=== PATIENT | male | born 1950 | race Caucasian/White ===

== ENCOUNTER 2016-10-09 04:05 | Inpatient (IN) | payer BC ==
[2016-10-09 04:51] LABS: ABSOLUTE BASOPHILS # (AUTO) 0.1 10^3/uL (0.0-0.2); ABSOLUTE EOSINOPHILS # (AUTO) 0.1 10^3/uL (0.0-0.6); ABSOLUTE LYMPHOCYTES (AUTO) 2.4 10^3/uL (0.5-4.7); ABSOLUTE MONOCYTES (AUTO) 0.8 10^3/uL (0.1-1.4); BASOPHILS % (AUTO) 0.6 % (0-2); EOSINOPHILS % (AUTO) 1.5 % (0-6); HEMATOCRIT 46.8 % (37.9-51.0); HEMOGLOBIN 15.6 g/dL (13.5-17.0); LYMPHOCYTES % (AUTO) 28.5 % (13-45); MEAN CORPUSCULAR HEMOGLOBIN 31.9 pg (27.0-33.4); MEAN CORPUSCULAR HGB CONC 33.3 g/dL (32.0-36.0); MEAN CORPUSCULAR VOLUME 96 fl (80-97); MONOCYTES % (AUTO) 9.7 % (3-13); RED BLOOD COUNT 4.88 10^6/uL (4.35-5.55); RED CELL DISTRIBUTION WIDTH 13.1 % (11.5-14.0); SEGMENTED NEUTROPHILS % (AUTO) 59.7 % (42-78); WHITE BLOOD COUNT 8.4 10^3/uL (4.0-10.5)
--- NOTE | 2016-10-09 04:56 | ER Document Report ---
ED General - General Chief Complaint: S/S of Possible Stroke Stated Complaint: STROKE LIKE SYMPTOMS Notes: Patient is a 66-year-old male presents with complaint of strokelike symptoms. He first started having stroke like symptoms congestion during the day. He felt a little bit weak on his right side but it was not bad. He went to bed around 10 PM. He woke up around 3:45 with worsening right-sided weakness and some slurred speech. He came to ER. No previous history of stroke. No history of A. fib. He denies any headache or chest pain. No shortness of breath. No other complaints at this time. No new medications. No recent fevers or infections. TRAVEL OUTSIDE OF THE [place] IN LAST 30 DAYS: No - Related Data Allergies/Adverse Reactions: No Known Allergies Allergy (Verified 10/01/15 16:59) Past Medical History - Social History Smoking Status: Never Smoker Chew tobacco use (# tins/day): No Frequency of alcohol use: Occasional Drug Abuse: None Family History: Reviewed & Not Pertinent Patient has suicidal ideation: No Patient has homicidal ideation: No - Past Medical History Cardiac Medical History: Reports: Hx Atrial Fibrillation - INTERMITTENT, Hx Hypertension Endocrine Medical History: Reports: Hx Diabetes Mellitus Type 2 Renal/ Medical History: Denies: Hx Peritoneal Dialysis Past Surgical History: Reports: Hx Orthopedic Surgery - back, R rotator cuff - Immunizations Hx Diphtheria, Pertussis, Tetanus Vaccination: No Review of Systems - Review of Systems Notes: My Normal Review Basic REVIEW OF SYSTEMS: CONSTITUTIONAL : Denies fever, chills, or sweats. Denies recent illness. EENT: Denies eye, ear, throat, or mouth pain or symptoms. Denies nasal or sinus congestion. CARDIOVASCULAR: Denies chest pain. RESPIRATORY: Denies cough, cold, or chest congestion. Denies shortness of breath, difficulty breathing, or wheezing. GASTROINTESTINAL: Denies abdominal pain. Denies nausea, vomiting, or diarrhea. Denies constipation. Last BM: MUSCULOSKELETAL: Denies neck or back pain or joint pain or swelling. SKIN: Denies rash or skin lesions. HEMATOLOGIC : Denies easy bruising or bleeding. NEUROLOGICAL: Denies altered mental status or loss of consciousness. Denies headache. Right-sided weakness. Slurred speech. PSYCHIATRIC: Denies anxiety or stress or depression. ALL OTHER SYSTEMS REVIEWED AND NEGATIVE. Physical Exam - Vital signs Vitals: Temp Pulse Resp BP Pulse Ox 98 F 58 L 18 154/98 H 96 10/09/16 04:15 10/09/16 04:15 10/09/16 04:15 10/09/16 04:15 10/09/16 04:15 - Notes Notes: General Appearance: Well nourished, alert, cooperative, no acute distress, no obvious discomfort. Well-appearing Vitals: reviewed, See vital signs table. Head: no swelling or tenderness to the head Eyes: PERRL, EOMI, Conjuctiva clear Mouth: No decreasd moisture Neck: Supple, no neck tenderness, No thyromegaly Lungs: No wheezing, No rales, No rhonci, No accessory muscle use, good air exchange bilaterally. Heart: Irregular rate, Regular rythm, No murmur, no rub Abdomen: Normal BS, soft, No rigidity, No abdominal tenderness, No guarding, no rebound, no abdominal masses, no organomegaly Extremities: good pulses in all extremities, no swelling or tenderness in the extremities, no edema. Skin: warm, dry, appropriate color, no rash Neuro: Slurred clear, oriented x 3, normal affect, responds appropriately to questions. Patient is able move all 4 extremities without difficulty. Slight drift of right upper extremity when holding his gravity. Left upper extremity has normal strength. Good material distributor strength bilaterally. Slight drift when holding his right lower extremity up against gravity. Normal strength and left lower extremity. Good strength of bilateral lower extremities. Plantar and dorsiflexion. Good distal sensation. Course - Vital Signs Vital signs: Temp Pulse Resp BP Pulse Ox 98 F 89 16 154/101 H 93 10/09/16 04:15 10/09/16 04:33 10/09/16 06:45 10/09/16 06:31 10/09/16 06:45 - Laboratory Result Diagrams: 10/09/16 04:41 10/09/16 04:41 Laboratory results interpreted by me: 10/09/16 10/09/16 10/09/16 04:41 04:51 05:25 Glucose 286 H POC Glucose 272 H Urine Protein 100 H Urine Glucose (UA) >=500 H Urine Blood SMALL H - Transfer of Care Notes: 10/09/16 04:55 EKG is reviewed and interpreted by me. EKG shows A. fib with a rate of [address] segment elevation or depression. No ischemic T wave inversions. QRS duration QTC intervals are within normal range. No old EKG available for comparison. 10/09/16 07:39 Patient has had no progression of his neurologic deficits. They remain the same. He still has mild weakness in the right side with some slurred speech. Due to new onset atrial relation to date the patient dose of Lovenox. I did speak with Dr. Whatley, hospitalist, who agrees to admit the patient. Dictation of this chart was performed using voice recognition software; therefore, there may be some unintended grammatical errors. Discharge - Discharge Clinical Impression: Stroke Qualifiers: CVA mechanism: unspecified Qualified Code(s): I63.9 - Cerebral infarction, unspecified Atrial fibrillation Qualifiers: Atrial fibrillation type: persistent Qualified Code(s): I48.1 - Persistent atrial fibrillation Condition: Stable Disposition: ADMITTED OBSERVATION Admitting Provider: Hospitalist Unit Admitted: IMCU Referrals: CARLOTA GUPTA MD [Primary Care Provider] - Follow up as needed
[2016-10-09 05:04] LABS: PROTHROMBIN TIME 12.7 SEC (11.4-15.4)
[2016-10-09 05:05] LABS: PARTIAL THROMBOPLASTIN TIME 28.2 SEC (23.5-35.8)
[2016-10-09 05:17] LABS: ALANINE AMINOTRANSFERASE 39 U/L (21-72); ALKALINE PHOSPHATASE 49 U/L (38-126); ANION GAP 9 (5-19); ASPARTATE AMINO TRANSFERASE 26 U/L (17-59); BILIRUBIN,TOTAL 0.8 mg/dL (0.2-1.3); BLOOD UREA NITROGEN 19 mg/dL (7-20); CALCIUM 10.2 mg/dL (8.4-10.2); CARBON DIOXIDE 26 mmol/L (22-30); CHLORIDE 104 mmol/L (98-107); CREATININE RESULT 0.76 mg/dL (0.52-1.25); GLUCOSE 286 mg/dL (75-110); POTASSIUM 4.8 mmol/L (3.6-5.0); SODIUM 139.2 mmol/L (137-145); TOTAL PROTEIN 7.6 g/dL (6.3-8.2)
[2016-10-09 05:44] LABS: APPEARANCE,URINE CLEAR; BILIRUBIN,URINE NEGATIVE (NEGATIVE); GLUCOSE, URINE >=500 mg/dL (NEGATIVE); KETONES,URINE NEGATIVE (NEGATIVE); LEUKOCYTE ESTERASE,URINE NEGATIVE (NEGATIVE); NITRITE,URINE NEGATIVE (NEGATIVE); PROTEIN,URINE 100 mg/dL (NEGATIVE); URINE SPECIFIC GRAVITY 1.022; UROBILINOGEN,URINE NEGATIVE mg/dL (<2.0)
[2016-10-09] MEDS ORDERED: ENOXAPARIN SODIUM INJ 120 MG/0.8 ML DISP.SYRIN SUBCUT SCH ×2 (06:00)
[2016-10-09] MEDS ORDERED: INSULIN REG, HUMAN 100 UNIT/ML 3 ML VIAL (PYX) SUBCUT ONE (07:41)
[2016-10-09] MEDS ORDERED: HYDROCODONE/ACETAMINOPHEN 5-325 MG TABLET PO PRN (09:03)
[2016-10-09] MEDS ORDERED: DEXTROSE 40% GEL 15 GM TUBE PO PRN ×2 (09:03)
[2016-10-09] MEDS ORDERED: ONDANSETRON HCL INJ/PF 4 MG/2 ML SDV IV PRN (09:03)
[2016-10-09] MEDS ORDERED: DEXTROSE 50%-WATER 25 GM/50 ML DISP.SYRIN IV PRN ×2 (09:03)
[2016-10-09] MEDS ORDERED: GLUCAGON,HUMAN RECOMB 1 MG INJ IM PRN (09:03)
[2016-10-09] MEDS ORDERED: ACETAMINOPHEN 325 MG TABLET PO PRN (09:03)
[2016-10-09] MEDS ORDERED: MAGNESIUM HYDROXIDE SUSP 30 ML UDCUP PO PRN (09:09)
[2016-10-09] MEDS: ENOXAPARIN SODIUM INJ 100 MG/1 ML DISP.SYRIN SUBCUT SCH ×2 (10:07→22:05)
[2016-10-09] MEDS: INSULIN LISPRO 100 UNIT/ML 3 ML VIAL SUBCUT PRN ×2 (10:25→22:06)
--- NOTE | 2016-10-09 10:51 | EKG REPORT ---
SEVERITY:- ABNORMAL ECG - A-FLUTTER W/ PREDOM 3:1 AV BLOCK, A-RATE 283 : Confirmed by: Constantine Lee 09-Oct-2016 10:50:08
--- NOTE | 2016-10-09 16:26 | PDOC H&P ---
History of Present Illness Admission Date/PCP: 10/09/16 09:03 CARLOTA GUPTA, Patient complains of: Right-sided weakness History of Present Illness: VISH NUÑEZ JR is a 66 year old male patient of Dr. Gupta presented to the emergency room from home with gradual onset of right-sided weakness and slurred speech that started yesterday afternoon with weakness in his right arm that he thought was just from overuse. He denied paresthesias at that time. It never did quite go away but he decided to go to bed at around 2200 hrs. but awoke at 03 45 with worsening right arm and leg weakness and now slurred speech prompting the decision to come in to the ER for further evaluation. Since his symptoms have been persistent since yesterday afternoon he is well outside the window for thrombolytics. He states he's never had anything quite like this before but he's had vertigo for over a year. In fact he was evaluated here and had carotid Dopplers in December 2015 that showed no plaque, no stenosis and good antegrade flow in vertebral arteries. He does take an aspirin every day. He has a known history of atrial fibrillation since 1994 he states for which he is on rate controlling medicine and a daily aspirin. He does not take anticoagulation and an claims he's never had a GI bleed or abnormal blood loss. He is not routinely followed by cardiology. Evaluation in the emergency department shows persistent right sided symptoms consistent with an acute CVA. We were asked to admit the patient for further evaluation and management. Past Medical History Cardiac Medical History: Reports: Atrial Fibrillation - INTERMITTENT, Hypertension Denies: Heart Murmur Endocrine Medical History: Reports: Diabetes Mellitus Type 2 Past Surgical History Past Surgical History: Reports: Orthopedic Surgery - back, R rotator cuff Social History Information Source: Patient Smoking Status: Never Smoker Frequency of Alcohol Use: None Hx Recreational Drug Use: No Hx Prescription Drug Abuse: No - Advance Directive Resuscitation Status: Full Code Family History Family History: Reviewed & Not Pertinent. denies: CVA Parental Family History Reviewed: Yes Children Family History Reviewed: Yes Sibling(s) Family History Reviewed.: Yes Medication/Allergy Home Medications: Aspirin [Ecotrin] 325 mg PO DAILY 10/09/16 Benazepril HCl [Lotensin 20 mg Tablet] 20 mg PO DAILY 10/09/16 Digoxin [Lanoxin 0.25 mg Tablet] 250 mcg PO Q12 10/09/16 Glimepiride [Amaryl 4 mg Tablet] 8 mg PO DAILY 10/09/16 Insulin Glargine,Hum.rec.anlog [Jarretchaigermaine Malikfreeman] 60 unit SQ QHS 10/09/16 Metformin HCl [Glucophage] 1,000 mg PO Q12 10/09/16 Simvastatin [Zocor 40 mg Tablet] 40 mg PO QHS 10/09/16 Allergies/Adverse Reactions: No Known Allergies Allergy (Verified 10/01/15 16:59) Review of Systems Constitutional: ABSENT: chills, fever(s), headache(s), weight gain, weight loss Eyes: ABSENT: visual disturbances Ears: ABSENT: hearing changes Cardiovascular: ABSENT: chest pain, dyspnea on exertion, edema, orthropnea, palpitations Respiratory: ABSENT: cough, hemoptysis Gastrointestinal: ABSENT: abdominal pain, constipation, diarrhea, hematemesis, hematochezia, nausea, vomiting Genitourinary: ABSENT: dysuria, hematuria Musculoskeletal: ABSENT: joint swelling Integumentary: ABSENT: rash, wounds Neurological: PRESENT: abnormal speech, focal weakness. ABSENT: abnormal gait, confusion, dizziness, numbness, syncope, tingling Psychiatric: ABSENT: anxiety, depression Endocrine: ABSENT: cold intolerance, heat intolerance, polydipsia, polyuria Hematologic/Lymphatic: ABSENT: easy bleeding, easy bruising Physical Exam Vital Signs: Temp Pulse Resp BP Pulse Ox 98.1 F 96 15 154/96 H 97 10/09/16 15:02 10/09/16 15:00 10/09/16 15:02 10/09/16 15:02 10/09/16 15:02 PHYSICAL EXAM GENERAL: NAD; well developed, well nourished; mild obese; alert and oriented to person, place, time, situation and speech is slurred HEENT: normocephalic, atraumatic; EOMI, PERRLA, no conjunctival injection, no scleral icterus; oral mucosa moist, neck supple, no LAD, normal ROM RESPIRATORY: no accessory muscle use, no increased WOB, good air entry bilaterally; no wheezes, rales, rhonchi; no inspiratory crackles CARDIO: no JVD; irregularly irregular, A. fib on the monitor; no systolic murmur ; no tachycardia VASCULAR: no carotid bruit; no abdominal bruit; no pallor; 2+ radial, DP pulse ; normal capillary refill GI: soft; nondistended; normal bowel sounds; no hepato spleno megaly; no rebound, rigidity, guarding; nontender NEURO: normal patella reflexes; abnormal sensation right leg; abnormal motor function with right pronator drift; no nystagmus; tongue protrudes to the right ; abnormal finger to nose right hand; able to cross midline with finger to ear; right eye ptosis; blunted right nasal labial fold MSK: 5/5 strength; normal ROM hips; no tenderness EXTREMITIES: no calf tender; no palpable cords in calf; no clubbing, cyanosis , pedal edema PSYCH: normal affect, normal mood SKIN: warm; moist; no petechiae; no telengectasias; no jaundice; no rash Results Laboratory Results: 10/09/16 10/09/16 09:56 11:35 Troponin I Cancelled < 0.012 Labs reviewed and essentially normal aside from some hyperglycemia but good renal function, no anemia, LFTs look good and first troponin is negative EKG Comments: EKG shows atrial fibrillation with a ventricular rate of 97 a corrected QT interval 417 Impressions: Head CT 10/09/16 00:00 IMPRESSION: No acute intracranial hemorrhage or acute territorial infarct. Chronic changes of atrophy and microvascular ischemia. Remote infarct in the left occipital lobe. Head MRI 10/09/16 00:00 IMPRESSION: MINIMAL MICROVASCULAR ISCHEMIC CHANGE. OLD CEREBELLAR INFARCTS. OLD INFARCT IN THE LEFT OCCIPITAL LOBE. NO ACUTE FINDINGS. Chest X-Ray 10/09/16 04:27 IMPRESSION: Mild left basilar atelectasis. Assessment & Plan - Diagnosis (1) Acute CVA (cerebrovascular accident) Is this a current diagnosis for this admission?: YesPlan: He has persistent neurologic symptoms in spite of an MRI that does not show a left MCA lesion as I suspected. It does show old infarct and so clinically he clearly has acute stroke and will be treated as such. Admit to [facility] for careful hemodynamic monitoring and neuro scores. Start PT/OT/S/P. Start high- dose statin therapy. His atrial fibrillation with history of prior stroke, age , diabetes, hypertension all give him a chadsvasc score greater than 2 warranting anticoagulation. I'm worried for embolic stroke and not sure I can get an echocardiogram today giving me further reason to full dose anticoagulation. Check carotid Dopplers looking for stenosis. (2) Diabetes Qualifiers: Diabetes mellitus type: type 2 Diabetes mellitus complication status: with unspecified complications Diabetes mellitus intermediate manager insulin use: with senior care use Qualified Code(s): E11.8 - Type 2 diabetes mellitus with unspecified complications; Z79.4 - USP (current) use of insulin Is this a current diagnosis for this admission?: YesPlan: Continue home dose of Lantus and cover with sliding scale. Check hemoglobin A1c in the morning. (3) Hyperlipidemia Qualifiers: Hyperlipidemia type: unspecified Qualified Code(s): E78.5 - Hyperlipidemia, unspecified Is this a current diagnosis for this admission?: YesPlan: Check lipids in the morning. Start empiric high-dose statin therapy. (4) Atrial fibrillation Qualifiers: Atrial fibrillation type: persistent Qualified Code(s): I48.1 - Persistent atrial fibrillation Is this a current diagnosis for this admission?: YesPlan: Rate control with low-dose beta deep but careful titration to allow permissive hypertension for the first 48 hours.. Lovenox as outlined above. - Time Time Spent: 50 to 70 Minutes - Inpatient Certification Medical Necessity: Significant Comorbidiites Make Outpatient Treatment Too Risky , Need for Neurological Checks, Risk of Complication if Not Cared For in Hospital
[2016-10-09] MEDS ORDERED: DIGOXIN 0.25 MG TABLET PO SCH (17:15)
[2016-10-09] MEDS ORDERED: INSULIN GLARGINE,HUM.REC.ANLOG 1,000 UNIT/10 ML UNIT SUBCUT ONE (22:01)
[2016-10-09] MEDS: METOPROLOL TARTRATE 25 MG TABLET PO SCH (22:03)
[2016-10-09] MEDS: ATORVASTATIN CALCIUM 80 MG TABLET PO SCH (22:05)
[2016-10-09] MEDS: INSULIN GLARGINE,HUM.REC.ANLOG 300 UNIT/3 ML INSULN.PEN SUBCUT SCH (22:16)
[2016-10-10] MEDS: LANSOPRAZOLE 30 MG TAB.RAP.DR PO SCH (05:57)
[2016-10-10 06:20] LABS: HEMATOCRIT 48.1 % (37.9-51.0); HEMOGLOBIN 16.7 g/dL (13.5-17.0); MEAN CORPUSCULAR HEMOGLOBIN 32.8 pg (27.0-33.4); MEAN CORPUSCULAR HGB CONC 34.6 g/dL (32.0-36.0); MEAN CORPUSCULAR VOLUME 95 fl (80-97); RED BLOOD COUNT 5.09 10^6/uL (4.35-5.55); WHITE BLOOD COUNT 8.9 10^3/uL (4.0-10.5)
[2016-10-10 06:44] LABS: ANION GAP 11 (5-19); BLOOD UREA NITROGEN 16 mg/dL (7-20); CALCIUM 10.2 mg/dL (8.4-10.2); CARBON DIOXIDE 25 mmol/L (22-30); CHLORIDE 104 mmol/L (98-107); CREATININE RESULT 0.75 mg/dL (0.52-1.25); Direct HDL 43 mg/dL (>40); GLUCOSE 215 mg/dL (75-110); POTASSIUM 4.2 mmol/L (3.6-5.0); SODIUM 139.8 mmol/L (137-145); TRIGLYCERIDES 308 mg/dL (<150)
[2016-10-10 06:55] LABS: DIRECT LDL 157 mg/dL (<100)
[2016-10-10 07:00] LABS: VLDL CHOLESTEROL 61.6 mg/dL (10-31)
[2016-10-10] MEDS ORDERED: DIGOXIN 0.25 MG TABLET PO SCH (12:00)
[2016-10-10] MEDS: METOPROLOL TARTRATE 25 MG TABLET PO SCH ×2 (12:34→22:39)
[2016-10-10] MEDS: ENOXAPARIN SODIUM INJ 100 MG/1 ML DISP.SYRIN SUBCUT SCH ×2 (12:35→22:38)
--- NOTE | 2016-10-10 12:52 | XCELERA REPORT ---
[address] [address] Transthoracic Echocardiogram Report Name: VISH NUÑEZ JR Age: 66 yrs Gender: Male : 1950 Patient Status: Inpatient Patient Location: [id number]\S\329\S\A Study Date: 10/09/2016 05:18 PM Height: 71 in Weight: 230 lb BSA: 2.2 m2 Procedure: A two-dimensional transthoracic echocardiogram with color flow and Doppler was performed. The study was technically difficult with many images being suboptimal in quality. Images were not obtained from all of the standard acoustic windows due to the limited scope of the study. Reason For Study: afib with CVA not on anticoag;eval for thrombus Ordering Physician: ROSA DUARTE Performed By: Lino Antunez Interpretation Summary There is no obvious cardiac source of embolus noted on this transthoracic echocardiogram. Follow-up with a MECHE is suggested if cardiac source is still suspected. The left ventricle is normal in size. No 'True Apical 2 chamber views ' obtained.Hence cannot comment on the apical and basal Inferior and the apical and basal anterior allen.The mid Inferior,the mid anterior , and the rest of the LV allen probably contract normally , and in these views the LVEF is normal,and in excess of 55%. LV diastolic function could not be adequately assessed due to atrial fibrilation. The left atrium is borderline dilated. There is no evidence of mitral valve prolapse. There is no vegetation seen on the mitral valve. There is no mitral valve stenosis. There is no mitral regurgitation noted. There is no aortic valve stenosis There is no LVOT obstruction. No aortic regurgitation is present. There is no pericardial effusion. There is no obvious cardiac source of embolus noted on this transthoracic echocardiogram. Follow-up with a MECHE is suggested if cardiac source is still suspected MMode/2D Measurements \T\ Calculations RVDd: 2.4 cm LVIDd: 4.7 cm FS: 15.2 % Ao root diam: 3.3 cm IVSd: 1.0 cm LVIDs: 4.0 cm EDV(Teich): 104.3 ml LVPWd: 0.99 cm ESV(Teich): 70.6 ml Ao root area: 8.8 cm2 EF(Teich): 32.3 % LA dimension: 4.1 cm Doppler Measurements \T\ Calculations MV E max joon: MV P1/2t max joon: Ao V2 max: LV V1 max P.1 cm/sec 70.0 cm/sec 109.5 cm/sec 1.9 mmHg MV P1/2t: 49.9 msec Ao max PG: LV V1 max: 4.8 mmHg 68.2 cm/sec MVA(P1/2t): 4.4 cm2 MV dec slope: 410.7 cm/sec2 MV dec time: 0.16 sec PA V2 max: TR max joon: RAP systole: 70.1 cm/sec 216.1 cm/sec 10.0 mmHg PA max PG: TR max P.7 mmHg 2.0 mmHg RVSP(TR): 28.7 mmHg Left Ventricle The left ventricle is normal in size. No 'True Apical 2 chamber views ' obtained.Hence cannot comment on the apical and basal Inferior and the apical and basal anterior allen.The mid Inferior,the mid anterior , and the rest of the LV allen probably contract normally , and in these views the LVEF is normal,and in excess of 55%. LV diastolic function could not be adequately assessed due to atrial fibrilation. There is no thrombus. Right Ventricle The right ventricle is normal in size and function. Atria The right atrium is normal. The left atrium is borderline dilated. Mitral Valve There is no evidence of mitral valve prolapse. There is no vegetation seen on the mitral valve. There is no mitral valve stenosis. There is no mitral regurgitation noted. Aortic Valve There is no aortic valve stenosis. There is no LVOT obstruction. No aortic regurgitation is present. Tricuspid Valve The tricuspid valve is not well visualized secondary to technical limitations. Great Vessels The aortic root is not well visualized but is probably normal size. Effusions There is no pericardial effusion. : ROSA DUARTE > Brittaney Puga
--- NOTE | 2016-10-10 15:02 | PDOC PROGRESS REPORT ---
Subjective Progress Note for:: 10/10/16 Subjective:: REASON FOR VISIT: f/u CVA hospital course: VISH NUÑEZ JR is a 66 year old male patient of Dr. River presented to the emergency room from home with gradual onset of right -sided weakness and slurred speech that started yesterday afternoon with weakness in his right arm that he thought was just from overuse. He denied paresthesias at that time. It never did quite go away but he decided to go to bed at around 2200 hrs. but awoke at 03 45 with worsening right arm and leg weakness and now slurred speech prompting the decision to come in to the ER for further evaluation. Since his symptoms have been persistent since yesterday afternoon he is well outside the window for thrombolytics. He states he's never had anything quite like this before but he's had vertigo for over a year. In fact he was evaluated here and had carotid Dopplers in December 2015 that showed no plaque, no stenosis and good antegrade flow in vertebral arteries. He does take an aspirin every day. He has a known history of atrial fibrillation since 1994 he states for which he is on rate controlling medicine and a daily aspirin. He does not take anticoagulation and an claims he's never had a GI bleed or abnormal blood loss. He is not routinely followed by cardiology. Evaluation in the emergency department shows persistent right sided symptoms consistent with an acute CVA. We were asked to admit the patient for further evaluation and management. Subjective: c/o worsening RT arm weakness, persistent slurred speech and Rt leg weakness with paresthesias, loss of sensation in his mouth (states he cannot tell feel if he has food in the mouth or not at times). denies chest pain, MACDONALD, difficulty swallowing, vision changes, hearing changes ROS: total 10 systems reviewed, pertinent positives and negatives noted above, remaining systems are negative Physical Exam Vital Signs: Temp Pulse Resp BP Pulse Ox 98.3 F 86 18 127/77 H 93 10/10/16 11:59 10/10/16 11:59 10/10/16 11:59 10/10/16 11:59 10/10/16 11:59 Intake & Output 10/09/16 10/10/16 10/11/16 05:59 06:59 06:59 Intake Total 1125 Output Total 500 Balance 625 Weight PHYSICAL EXAM GENERAL: NAD; well developed, well nourished; mild obese; alert and oriented to person, place, time, situation and speech remains slurred HEENT: normocephalic, atraumatic; no conjunctival injection, no scleral icterus; oral mucosa moist, neck supple, no LAD, normal ROM RESPIRATORY: no accessory muscle use, no increased WOB, good air entry bilaterally; no wheezes, rales, rhonchi; no inspiratory crackles CARDIO: no JVD; irregularly irregular, A. fib on the monitor; no systolic murmur ; no tachycardia VASCULAR: no carotid bruit; no abdominal bruit; no pallor; 2+ radial, DP pulse ; normal capillary refill GI: soft; nondistended; normal bowel sounds; no hepato spleno megaly; no rebound, rigidity, guarding; nontender NEURO: normal patella reflexes; abnormal sensation right leg; abnormal motor function with right pronator drift; tongue protrudes to the right; Rt arm flaccid at the shoulder, still minimal revenue stamp cutter strength; right eye ptosis; blunted right nasal labial fold and rt facial droop MSK: 5/5 strength left; normal ROM hips; no tenderness EXTREMITIES: no calf tender; no palpable cords in calf; no clubbing, cyanosis , pedal edema PSYCH: normal affect, normal mood SKIN: warm; moist; no petechiae; no telengectasias; no jaundice; no rash Results Laboratory Results: 10/10/16 05:54 10/10/16 05:54 10/10/16 10/10/16 05:54 05:54 WBC 8.9 RBC 5.09 Hgb 16.7 Hct 48.1 MCV 95 MCH 32.8 MCHC 34.6 RDW 13.0 Plt Count 198 Sodium 139.8 Potassium 4.2 Chloride 104 Carbon Dioxide 25 Anion Gap 11 BUN 16 Creatinine 0.75 Est GFR ( Amer) > 60 Est GFR (Non-Af Amer) > 60 Glucose 215 H Calcium 10.2 Triglycerides 308 H Cholesterol 240.80 H LDL Cholesterol Direct 157 H VLDL Cholesterol 61.6 H HDL Cholesterol 43 10/09/16 10/09/16 09:56 11:35 Troponin I Cancelled < 0.012 labs reviewed and lipids poorly controlled, A1c 11.1% Impressions: Head CT 10/09/16 00:00 IMPRESSION: No acute intracranial hemorrhage or acute territorial infarct. Chronic changes of atrophy and microvascular ischemia. Remote infarct in the left occipital lobe. Head MRI 10/09/16 00:00 IMPRESSION: MINIMAL MICROVASCULAR ISCHEMIC CHANGE. OLD CEREBELLAR INFARCTS. OLD INFARCT IN THE LEFT OCCIPITAL LOBE. NO ACUTE FINDINGS. Chest X-Ray 10/09/16 04:27 IMPRESSION: Mild left basilar atelectasis. Carotid Doppler Study 10/09/16 09:07 IMPRESSION: NO HEMODYNAMICALLY SIGNIFICANT STENOSIS. Head CTA 10/10/16 00:00 IMPRESSION: NO CTA EVIDENCE OF STENOSIS OR ANEURYSM OF THE [place]. Neck CTA 10/10/16 00:00 IMPRESSION: 1. No dissection or high-grade stenosis in the bilateral carotids. Some narrowing in the distal right internal carotid at the skullbase looks less than 50%. Status: Image reviewed by me - MRI brain by my read shows an acute or subacute left pontine CVA, old left cerebellar infarct in addition to the items noted by radiologist Assessment & Plan - Diagnosis (1) Acute CVA (cerebrovascular accident) Is this a current diagnosis for this admission?: YesPlan: continue careful hemodynamic monitoring and PT/OT/S/P. continue high-dose statin therapy. His atrial fibrillation with history of prior stroke, age, diabetes, hypertension all give him a chadsvasc score greater than 2 warranting anticoagulation. I'm worried for embolic stroke but echocardiogram shows no evidence for embolic source and no significant valvular disease. carotid Dopplers negative for stenosis but does show bilat chol plaques. will likely need inpt rehab due to persistent deficits. (2) Diabetes Qualifiers: Diabetes mellitus type: type 2 Diabetes mellitus complication status: with unspecified complications Diabetes mellitus alarm operator insulin use: with group home use Qualified Code(s): E11.8 - Type 2 diabetes mellitus with unspecified complications; Z79.4 - irb compliance coordinator (current) use of insulin Is this a current diagnosis for this admission?: YesPlan: Continue home dose of Lantus and cover with sliding scale. hemoglobin A1c confirms poor control. (3) Hyperlipidemia Qualifiers: Hyperlipidemia type: unspecified Qualified Code(s): E78.5 - Hyperlipidemia, unspecified Is this a current diagnosis for this admission?: YesPlan: poorly controlled lipids continue empiric high-dose statin therapy. (4) Atrial fibrillation Qualifiers: Atrial fibrillation type: persistent Qualified Code(s): I48.1 - Persistent atrial fibrillation Is this a current diagnosis for this admission?: YesPlan: Rate control with low-dose beta deep but careful titration to allow permissive hypertension for the first 48 hours. Lovenox as outlined above. - Time Time Spent with patient: 15-24 minutes Anticipated discharge: Acute Rehab Within: within 48 hours
[2016-10-10] MEDS ORDERED: GLIMEPIRIDE 4 MG TABLET PO ONE (17:00)
[2016-10-10] MEDS: INSULIN LISPRO 100 UNIT/ML 3 ML VIAL SUBCUT PRN ×2 (18:12→22:38)
[2016-10-10] MEDS: ATORVASTATIN CALCIUM 80 MG TABLET PO SCH (22:38)
[2016-10-10] MEDS: INSULIN GLARGINE,HUM.REC.ANLOG 300 UNIT/3 ML INSULN.PEN SUBCUT SCH (22:38)
[2016-10-11] MEDS: LANSOPRAZOLE 30 MG TAB.RAP.DR PO SCH (05:02)
[2016-10-11 05:53] LABS: HEMATOCRIT 46.7 % (37.9-51.0); HEMOGLOBIN 16.3 g/dL (13.5-17.0); HGB HCT DIFFERENCE 2.2; MEAN CORPUSCULAR HEMOGLOBIN 33.2 pg (27.0-33.4); MEAN CORPUSCULAR HGB CONC 34.8 g/dL (32.0-36.0); MEAN CORPUSCULAR VOLUME 95 fl (80-97); WHITE BLOOD COUNT 7.7 10^3/uL (4.0-10.5)
[2016-10-11] MEDS ORDERED: DIGOXIN 0.25 MG TABLET PO SCH ×2 (10:00)
[2016-10-11] MEDS ORDERED: DIGOXIN 0.125 MG TABLET PO SCH (10:00)
[2016-10-11] MEDS: ENOXAPARIN SODIUM INJ 100 MG/1 ML DISP.SYRIN SUBCUT SCH (11:32)
[2016-10-11] MEDS: GLIMEPIRIDE 4 MG TABLET PO SCH ×2 (11:33→16:45)
[2016-10-11] MEDS: METOPROLOL TARTRATE 25 MG TABLET PO SCH ×2 (11:33→22:40)
[2016-10-11] MEDS: INSULIN LISPRO 100 UNIT/ML 3 ML VIAL SUBCUT PRN ×3 (12:14→22:40)
--- NOTE | 2016-10-11 12:30 | PDOC PROGRESS REPORT ---
Subjective Progress Note for:: 10/11/16 Subjective:: The patient seen on the rounds. He is awake and alert. He is having difficulty moving the right side of his body Physical Exam Vital Signs: Temp Pulse Resp BP Pulse Ox 97.8 F 68 19 134/76 H 93 10/11/16 07:35 10/11/16 08:00 10/11/16 08:00 10/11/16 08:00 10/11/16 08:00 Intake & Output 10/10/16 10/11/16 10/12/16 06:59 06:59 06:59 Intake Total 1595 Output Total 1540 Balance 55 Weight 104.9 kg General appearance: PRESENT: mild distress Head exam: PRESENT: atraumatic Eye exam: PRESENT: conjunctival injection Mouth exam: PRESENT: dry mucosa Neck exam: ABSENT: carotid bruit Respiratory exam: PRESENT: rhonchi Cardiovascular exam: PRESENT: irregular rhythm Pulses: PRESENT: +1 pedal pulses bilateral Vascular exam: PRESENT: normal capillary refill GI/Abdominal exam: PRESENT: normal bowel sounds, soft Extremities exam: PRESENT: full ROM Musculoskeletal exam: ABSENT: ambulatory Neurological exam: PRESENT: awake, abnormal gait, ataxia Additional comments: Paresthesia of the right face. Tongue deviation, weakness 2/5 in both upper and lower extremity on the right Psychiatric exam: PRESENT: anxious Results Laboratory Results: 10/11/16 04:44 10/10/16 05:54 10/11/16 04:44 WBC 7.7 RBC 4.90 Hgb 16.3 Hct 46.7 MCV 95 MCH 33.2 MCHC 34.8 RDW 13.0 Plt Count 187 10/09/16 10/09/16 09:56 11:35 Troponin I Cancelled < 0.012 Impressions: Head CT 10/09/16 00:00 IMPRESSION: No acute intracranial hemorrhage or acute territorial infarct. Chronic changes of atrophy and microvascular ischemia. Remote infarct in the left occipital lobe. Head MRI 10/09/16 00:00 IMPRESSION: MINIMAL MICROVASCULAR ISCHEMIC CHANGE. OLD CEREBELLAR INFARCTS. OLD INFARCT IN THE LEFT OCCIPITAL LOBE. NO ACUTE FINDINGS. Chest X-Ray 10/09/16 04:27 IMPRESSION: Mild left basilar atelectasis. Carotid Doppler Study 10/09/16 09:07 IMPRESSION: NO HEMODYNAMICALLY SIGNIFICANT STENOSIS. Head CTA 10/10/16 00:00 IMPRESSION: NO CTA EVIDENCE OF STENOSIS OR ANEURYSM OF THE [place]. Neck CTA 10/10/16 00:00 IMPRESSION: 1. No dissection or high-grade stenosis in the bilateral carotids. Some narrowing in the distal right internal carotid at the skullbase looks less than 50%. Assessment & Plan - Diagnosis (1) Acute CVA (cerebrovascular accident) Is this a current diagnosis for this admission?: YesPlan: The clinical symptoms are consistent with a left CVA acute. (2) Atrial fibrillation Qualifiers: Atrial fibrillation type: persistent Qualified Code(s): I48.1 - Persistent atrial fibrillation Is this a current diagnosis for this admission?: YesPlan: Presently rate controlled with medications. Has been started on Lovenox. We will consult cardiology for further evaluation (3) Diabetes Qualifiers: Diabetes mellitus type: type 2 Diabetes mellitus complication status: with unspecified complications Diabetes mellitus intermediate school teacher insulin use: with skilled nursing use Qualified Code(s): E11.8 - Type 2 diabetes mellitus with unspecified complications; Z79.4 - tank terminal gauger (current) use of insulin Is this a current diagnosis for this admission?: YesPlan: We'll continue with insulin injections (4) Hyperlipidemia Qualifiers: Hyperlipidemia type: unspecified Qualified Code(s): E78.5 - Hyperlipidemia, unspecified Is this a current diagnosis for this admission?: YesPlan: Continue with current medications (5) Hypertension Is this a current diagnosis for this admission?: YesPlan: Continue current meds - Plan Summary Plan Summary: We'll consult cardiology. We'll consult physical therapy and occupational and consider patient for an acute rehabilitation
[2016-10-11] MEDS: APIXABAN 5 MG TABLET PO SCH (16:45)
--- NOTE | 2016-10-11 21:36 | EKG REPORT ---
SEVERITY:- ABNORMAL ECG - A-FLUTTER W/ PREDOM 4:1 AV BLOCK, A-RATE 283 BORDERLINE LEFT AXIS DEVIATION : Confirmed by: Constantine Lee 11-Oct-2016 21:35:24
[2016-10-11] MEDS: INSULIN GLARGINE,HUM.REC.ANLOG 300 UNIT/3 ML INSULN.PEN SUBCUT SCH (22:40)
[2016-10-11] MEDS: ATORVASTATIN CALCIUM 80 MG TABLET PO SCH (22:40)
[2016-10-12] MEDS: LANSOPRAZOLE 30 MG TAB.RAP.DR PO SCH (06:04)
[2016-10-12 06:44] LABS: ABSOLUTE EOSINOPHILS # (AUTO) 0.1 10^3/uL (0.0-0.6); ABSOLUTE LYMPHOCYTES (AUTO) 2.2 10^3/uL (0.5-4.7); ABSOLUTE MONOCYTES (AUTO) 0.8 10^3/uL (0.1-1.4); ABSOLUTE NEUT (AUTO) 4.7 10^3/uL (1.7-8.2); BASOPHILS % (AUTO) 0.5 % (0-2); EOSINOPHILS % (AUTO) 1.6 % (0-6); HEMATOCRIT 45.9 % (37.9-51.0); HEMOGLOBIN 15.8 g/dL (13.5-17.0); HGB HCT DIFFERENCE 1.5; LYMPHOCYTES % (AUTO) 27.5 % (13-45); MEAN CORPUSCULAR HEMOGLOBIN 32.7 pg (27.0-33.4); MEAN CORPUSCULAR HGB CONC 34.5 g/dL (32.0-36.0); MEAN CORPUSCULAR VOLUME 95 fl (80-97); MONOCYTES % (AUTO) 10.1 % (3-13); RED BLOOD COUNT 4.83 10^6/uL (4.35-5.55); RED CELL DISTRIBUTION WIDTH 13.2 % (11.5-14.0); SEGMENTED NEUTROPHILS % (AUTO) 60.3 % (42-78); WHITE BLOOD COUNT 7.8 10^3/uL (4.0-10.5)
[2016-10-12 07:03] LABS: ALANINE AMINOTRANSFERASE 42 U/L (21-72); ALBUMIN 3.7 g/dL (3.5-5.0); ALKALINE PHOSPHATASE 46 U/L (38-126); ANION GAP 10 (5-19); ASPARTATE AMINO TRANSFERASE 44 U/L (17-59); BILIRUBIN,TOTAL 0.9 mg/dL (0.2-1.3); BLOOD UREA NITROGEN 20 mg/dL (7-20); CALCIUM 9.7 mg/dL (8.4-10.2); CARBON DIOXIDE 24 mmol/L (22-30); CHLORIDE 106 mmol/L (98-107); GLUCOSE 177 mg/dL (75-110); MAGNESIUM 1.8 mg/dL (1.6-2.3); SODIUM 140.2 mmol/L (137-145); TOTAL PROTEIN 7.6 g/dL (6.3-8.2)
--- NOTE | 2016-10-12 08:56 | PDOC PROGRESS REPORT ---
Subjective Progress Note for:: 10/12/16 Subjective:: The patient states to feel the same. He tried to get out of bed this morning and had a fall without any trauma. He is very weak in his right upper and right lower extremity. His is present in the room. Discussed the stroke and the need for an acute rehabilitation if he is accepted. Physical Exam Vital Signs: Temp Pulse Resp BP Pulse Ox 97.8 F 88 18 142/91 H 96 10/12/16 07:45 10/12/16 07:45 10/12/16 07:45 10/12/16 07:45 10/12/16 07:45 Intake & Output 10/11/16 10/12/16 10/13/16 06:59 06:59 06:59 Intake Total 1595 1940 Output Total 1540 1920 Balance 55 20 Weight 104.9 kg 102 kg General appearance: PRESENT: mild distress Head exam: PRESENT: atraumatic Eye exam: PRESENT: conjunctival injection Neck exam: ABSENT: carotid bruit Respiratory exam: PRESENT: rhonchi Cardiovascular exam: PRESENT: +S1, +S2 Pulses: PRESENT: +1 pedal pulses bilateral Vascular exam: PRESENT: normal capillary refill GI/Abdominal exam: PRESENT: normal bowel sounds, soft Extremities exam: PRESENT: full ROM Musculoskeletal exam: PRESENT: other Neurological exam: PRESENT: motor sensory deficit Additional comments: Right upper and right lower extremity weakness 2 out of 5 Psychiatric exam: PRESENT: anxious Results Laboratory Results: 10/12/16 05:34 10/12/16 05:34 10/11/16 10/12/16 10/12/16 16:05 05:34 05:34 WBC 7.8 RBC 4.83 Hgb 15.8 Hct 45.9 MCV 95 MCH 32.7 MCHC 34.5 RDW 13.2 Plt Count 170 Seg Neutrophils % 60.3 Lymphocytes % 27.5 Monocytes % 10.1 Eosinophils % 1.6 Basophils % 0.5 Absolute Neutrophils 4.7 Absolute Lymphocytes 2.2 Absolute Monocytes 0.8 Absolute Eosinophils 0.1 Absolute Basophils 0.0 Sodium 140.2 Potassium 4.0 Chloride 106 Carbon Dioxide 24 Anion Gap 10 BUN 20 Creatinine 0.70 Est GFR ( Amer) > 60 Est GFR (Non-Af Amer) > 60 Glucose 177 H Calcium 9.7 Magnesium 1.8 Total Bilirubin 0.9 AST 44 ALT 42 Alkaline Phosphatase 46 Total Protein 7.6 Albumin 3.7 Stool Occult Blood NEGATIVE 10/09/16 10/09/16 09:56 11:35 Troponin I Cancelled < 0.012 Impressions: Head CT 10/09/16 00:00 IMPRESSION: No acute intracranial hemorrhage or acute territorial infarct. Chronic changes of atrophy and microvascular ischemia. Remote infarct in the left occipital lobe. Head MRI 10/09/16 00:00 IMPRESSION: MINIMAL MICROVASCULAR ISCHEMIC CHANGE. OLD CEREBELLAR INFARCTS. OLD INFARCT IN THE LEFT OCCIPITAL LOBE. NO ACUTE FINDINGS. Chest X-Ray 10/09/16 04:27 IMPRESSION: Mild left basilar atelectasis. Carotid Doppler Study 10/09/16 09:07 IMPRESSION: NO HEMODYNAMICALLY SIGNIFICANT STENOSIS. Head CTA 10/10/16 00:00 IMPRESSION: NO CTA EVIDENCE OF STENOSIS OR ANEURYSM OF THE [place] OF [place]. Neck CTA 10/10/16 00:00 IMPRESSION: 1. No dissection or high-grade stenosis in the bilateral carotids. Some narrowing in the distal right internal carotid at the skullbase looks less than 50%. Assessment & Plan - Diagnosis (1) Acute CVA (cerebrovascular accident) Is this a current diagnosis for this admission?: YesPlan: We'll continue fall precautions. Awaiting acute rehabilitation evaluation. Continue physical therapy (2) Atrial fibrillation Qualifiers: Atrial fibrillation type: persistent Qualified Code(s): I48.1 - Persistent atrial fibrillation Is this a current diagnosis for this admission?: YesPlan: Discussed with cardiology and Lovenox has been switched Eliquis. He is presently rate control. We will stop the digoxin (3) Diabetes Qualifiers: Diabetes mellitus type: type 2 Diabetes mellitus complication status: with unspecified complications Diabetes mellitus penitentiary insulin use: with penitentiary use Qualified Code(s): E11.8 - Type 2 diabetes mellitus with unspecified complications; Z79.4 - historical guide (current) use of insulin Is this a current diagnosis for this admission?: YesPlan: We'll continue with insulin injections (4) Hyperlipidemia Qualifiers: Hyperlipidemia type: unspecified Qualified Code(s): E78.5 - Hyperlipidemia, unspecified Is this a current diagnosis for this admission?: YesPlan: Continue with current medications (5) Hypertension Is this a current diagnosis for this admission?: YesPlan: Continue current meds
[2016-10-12] MEDS: APIXABAN 5 MG TABLET PO SCH ×2 (10:00→18:24)
[2016-10-12] MEDS: GLIMEPIRIDE 4 MG TABLET PO SCH ×2 (10:35→18:24)
[2016-10-12] MEDS: METOPROLOL TARTRATE 25 MG TABLET PO SCH ×2 (10:36→22:35)
[2016-10-12] MEDS: INSULIN LISPRO 100 UNIT/ML 3 ML VIAL SUBCUT PRN ×2 (11:47→22:35)
--- NOTE | 2016-10-12 18:02 | PDOC PROGRESS REPORT ---
Subjective Progress Note for:: 10/12/16 Subjective:: Patient seems to be doing better with gradual improvement. Pt is denying any chest arm or neck discomfort. Patient denying any PND, orthopnea. Patient denied any sustained palpitations, dizziness, syncope, near syncope. Patient denying any fever chills. Patient denying any other significant discomfort. He has intermittent dysphasia. Patient has right upper extremity weakness more than the lower extremity. Patient was noted to ambulate with the help of physical therapy. Patient is maintaining atrial fibrillation with controlled ventricular response. Review of systems: Rest review of systems negative. Medications: Medications have been reviewed. Physical Exam Vital Signs: Temp Pulse Resp BP Pulse Ox 97.5 F 90 20 141/70 H 97 10/12/16 16:06 10/12/16 16:06 10/12/16 11:31 10/12/16 16:06 10/12/16 16:06 Intake & Output 10/11/16 10/12/16 10/13/16 06:59 06:59 06:59 Intake Total 1595 1940 601 Output Total 1540 1920 725 Balance 55 20 -124 Weight 104.9 kg 102 kg 102 kg Exam: GENERAL: well-nourished and in no acute distress. Alert and oriented x3 HEAD: Atraumatic, normocephalic. EYES: Pupils equal round and reactive to light, extraocular movements intact, sclera anicteric, conjunctiva are normal. ENT: TMs normal, nares patent, oropharynx clear without exudates. Moist mucous membranes. No oral ulcerations or bleeding gums noted NECK: supple without lymphadenopathy. Trachea is central. No cervical or axillary lymphadenopathy noted. Carotids are 2+, JVD WNL LUNGS: Respiration seems nonlabored, no significant accessory muscle action noted. Breath sounds clear to auscultation bilaterally and equal noted. No wheezes rales or rhonchi noted. No significant dullness noted on percussion. CHEST: Palpation of the chest wall shows no significant chest wall tenderness. No other significant abnormalities noted. 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 ABDOMEN: Soft, no significant tenderness appreciated, normoactive bowel sounds. No guarding, no rebound. No rigidity noted . No masses appreciated. EXTREMITIES: Pedal pulses are 1-2+, no calf tenderness noted. No clubbing or cyanosis.trace to 1+ pedal edema noted NEUROLOGICAL: Focused neurological exam showed no significant neurologic deficit. Mild dysphasia and focal weakness right side, upper extremity more affected than the lower extremity. PSYCH: Normal mood, normal affect. Judgment and insight was not checked. SKIN: No significant ecchymosis, rash, ulcerations or signs of pruritus noted. MUSCULOSKELETAL EXAM: No significant joint swelling noted. Results Laboratory Results: 10/12/16 05:34 10/12/16 05:34 10/12/16 10/12/16 05:34 05:34 WBC 7.8 RBC 4.83 Hgb 15.8 Hct 45.9 MCV 95 MCH 32.7 MCHC 34.5 RDW 13.2 Plt Count 170 Seg Neutrophils % 60.3 Lymphocytes % 27.5 Monocytes % 10.1 Eosinophils % 1.6 Basophils % 0.5 Absolute Neutrophils 4.7 Absolute Lymphocytes 2.2 Absolute Monocytes 0.8 Absolute Eosinophils 0.1 Absolute Basophils 0.0 Sodium 140.2 Potassium 4.0 Chloride 106 Carbon Dioxide 24 Anion Gap 10 BUN 20 Creatinine 0.70 Est GFR ( Amer) > 60 Est GFR (Non-Af Amer) > 60 Glucose 177 H Calcium 9.7 Magnesium 1.8 Total Bilirubin 0.9 AST 44 ALT 42 Alkaline Phosphatase 46 Total Protein 7.6 Albumin 3.7 10/09/16 10/09/16 09:56 11:35 Troponin I Cancelled < 0.012 EKG Comments: Yesterday's EKG shows atrial flutter fibrillation with controlled ventricular response Impressions: Head CT 10/09/16 00:00 IMPRESSION: No acute intracranial hemorrhage or acute territorial infarct. Chronic changes of atrophy and microvascular ischemia. Remote infarct in the left occipital lobe. Head MRI 10/09/16 00:00 IMPRESSION: MINIMAL MICROVASCULAR ISCHEMIC CHANGE. OLD CEREBELLAR INFARCTS. OLD INFARCT IN THE LEFT OCCIPITAL LOBE. NO ACUTE FINDINGS. Chest X-Ray 10/09/16 04:27 IMPRESSION: Mild left basilar atelectasis. Carotid Doppler Study 10/09/16 09:07 IMPRESSION: NO HEMODYNAMICALLY SIGNIFICANT STENOSIS. Head CTA 10/10/16 00:00 IMPRESSION: NO CTA EVIDENCE OF STENOSIS OR ANEURYSM OF THE [place] OF [place]. Neck CTA 10/10/16 00:00 IMPRESSION: 1. No dissection or high-grade stenosis in the bilateral carotids. Some narrowing in the distal right internal carotid at the skullbase looks less than 50%. 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 Qualified Code(s): E11.8 - Type 2 diabetes mellitus with unspecified complications; Z79.4 - [facility] (current) use of insulin Is this a current diagnosis for this admission?: Yes (4) Hyperlipidemia Qualifiers: Hyperlipidemia type: unspecified Qualified Code(s): E78.5 - Hyperlipidemia, unspecified Is this a current diagnosis for this admission?: Yes (5) Hypertension Is this a current diagnosis for this admission?: Yes (6) Stroke Qualifiers: CVA mechanism: unspecified Qualified Code(s): I63.9 - Cerebral infarction, unspecified Is this a current diagnosis for this admission?: Yes - Notes Notes: Acute cerebrovascular accident: Patient being treated with chronic anticoagulation. Most likely related to underlying atrial flutter flutter fibrillation. Atrial fibrillation: Persistent. Continue rate control and chronic anticoagulation. Diabetes: Recommend good control of blood sugar. However should avoid any hypoglycemia. Patient being expertly managed by primary care M.D. Blood pressure goal in this patient is 140/90 or less. This was discussed with the patient. Currently blood pressure under reasonable control. Better medication for this patient are JENNIFER inhibitor/ARB/beta deep etc. discussed side effects of uncontrolled hypertension and also severe hypotension. Hyperlipidemia: LDL goal is less than 70. Recommend statin therapy at least intermediate or high dose, of high potency status. Periodic lipid panel and liver panel is indicated. Patient to report any significant muscle discomfort or other side effects. Stroke most likely embolic. - Time Time with patient: 15-25 minutes - CODE STATUS was discussed, patient remains full code. Surrogate decision-maker patient's spouse. Multiple medical problems were addressed.More than 50% of the time spent coordinating care, discussing management plans with involved caregivers. Management plans discussed with involved personnels. Medical decision making was of moderate complexity.
[2016-10-12] MEDS: ATORVASTATIN CALCIUM 80 MG TABLET PO SCH (22:35)
[2016-10-12] MEDS: INSULIN GLARGINE,HUM.REC.ANLOG 300 UNIT/3 ML INSULN.PEN SUBCUT SCH (22:35)
[2016-10-13] MEDS: LANSOPRAZOLE 30 MG TAB.RAP.DR PO SCH (05:36)
[2016-10-13 06:04] LABS: HEMATOCRIT 47.1 % (37.9-51.0); HEMOGLOBIN 16.1 g/dL (13.5-17.0); HGB HCT DIFFERENCE 1.2; MEAN CORPUSCULAR HEMOGLOBIN 32.7 pg (27.0-33.4); MEAN CORPUSCULAR HGB CONC 34.3 g/dL (32.0-36.0); MEAN CORPUSCULAR VOLUME 96 fl (80-97); RED BLOOD COUNT 4.93 10^6/uL (4.35-5.55); RED CELL DISTRIBUTION WIDTH 13.2 % (11.5-14.0); WHITE BLOOD COUNT 8.2 10^3/uL (4.0-10.5)
--- NOTE | 2016-10-13 08:45 | PDOC PROGRESS REPORT ---
Subjective Progress Note for:: 10/13/16 Subjective:: The patient states to feel slightly better. Were awaiting for an acute rehabilitation placement Physical Exam Vital Signs: Temp Pulse Resp BP Pulse Ox 97.3 F 66 20 158/79 H 97 10/13/16 07:41 10/13/16 07:41 10/13/16 07:41 10/13/16 07:41 10/13/16 07:41 Intake & Output 10/12/16 10/13/16 10/14/16 06:59 06:59 06:59 Intake Total 1939 141 Output Total 1919 2124 Balance 20 -707 Weight 102 kg 103.2 kg General appearance: PRESENT: mild distress Head exam: PRESENT: atraumatic Eye exam: PRESENT: conjunctiva pink Neck exam: ABSENT: carotid bruit Respiratory exam: PRESENT: rhonchi Cardiovascular exam: PRESENT: +S1, +S2 Pulses: PRESENT: +1 pedal pulses bilateral Vascular exam: PRESENT: normal capillary refill GI/Abdominal exam: PRESENT: normal bowel sounds, soft Extremities exam: PRESENT: other Musculoskeletal exam: PRESENT: other Neurological exam: PRESENT: alert, awake, abnormal gait, motor sensory deficit Additional comments: 2 over 5 weakness in the right upper and lower extremity Results Laboratory Results: 10/13/16 05:16 10/12/16 05:34 10/13/16 05:16 WBC 8.2 RBC 4.93 Hgb 16.1 Hct 47.1 MCV 96 MCH 32.7 MCHC 34.3 RDW 13.2 Plt Count 175 10/09/16 10/09/16 09:56 11:35 Troponin I Cancelled < 0.012 Impressions: Head CT 10/09/16 00:00 IMPRESSION: No acute intracranial hemorrhage or acute territorial infarct. Chronic changes of atrophy and microvascular ischemia. Remote infarct in the left occipital lobe. Head MRI 10/09/16 00:00 IMPRESSION: MINIMAL MICROVASCULAR ISCHEMIC CHANGE. OLD CEREBELLAR INFARCTS. OLD INFARCT IN THE LEFT OCCIPITAL LOBE. NO ACUTE FINDINGS. Chest X-Ray 10/09/16 04:27 IMPRESSION: Mild left basilar atelectasis. Carotid Doppler Study 10/09/16 09:07 IMPRESSION: NO HEMODYNAMICALLY SIGNIFICANT STENOSIS. Head CTA 10/10/16 00:00 IMPRESSION: NO CTA EVIDENCE OF STENOSIS OR ANEURYSM OF THE [place]. Neck CTA 10/10/16 00:00 IMPRESSION: 1. No dissection or high-grade stenosis in the bilateral carotids. Some narrowing in the distal right internal carotid at the skullbase looks less than 50%. Assessment & Plan - Diagnosis (1) Acute CVA (cerebrovascular accident) Is this a current diagnosis for this admission?: YesPlan: We'll continue fall precautions. Awaiting acute rehabilitation evaluation. Continue physical therapy (2) Atrial fibrillation Qualifiers: Atrial fibrillation type: persistent Qualified Code(s): I48.1 - Persistent atrial fibrillation Is this a current diagnosis for this admission?: YesPlan: Presently in normal sinus rhythm with occasional PACs (3) Diabetes Qualifiers: Diabetes mellitus type: type 2 Diabetes mellitus complication status: with unspecified complications Diabetes mellitus terminal clerk insulin use: with senior care use Qualified Code(s): E11.8 - Type 2 diabetes mellitus with unspecified complications; Z79.4 - group home (current) use of insulin Is this a current diagnosis for this admission?: YesPlan: Increase insulin to 70 units nightly (4) Hyperlipidemia Qualifiers: Hyperlipidemia type: unspecified Qualified Code(s): E78.5 - Hyperlipidemia, unspecified Is this a current diagnosis for this admission?: YesPlan: Continue with current medications (5) Hypertension Is this a current diagnosis for this admission?: YesPlan: Continue current meds
[2016-10-13] MEDS: METOPROLOL TARTRATE 25 MG TABLET PO SCH (09:12)
[2016-10-13] MEDS: APIXABAN 5 MG TABLET PO SCH (09:12)
[2016-10-13] MEDS: INSULIN LISPRO 100 UNIT/ML 3 ML VIAL SUBCUT PRN ×2 (09:12→12:17)
[2016-10-13] MEDS: GLIMEPIRIDE 4 MG TABLET PO SCH (09:12)
[2016-10-13 12:36] VITALS: BP 133/67
--- NOTE | 2016-10-13 13:17 | PDOC TRANSFER SUMMARY ---
General Admission Date/PCP: 10/09/16 09:03 CARLOTA GUPTA, Transfer Date: 10/13/16 Accepting Facility: Other (Comments) Resuscitation Status: Full Code - Transfer Diagnosis (1) Acute CVA (cerebrovascular accident) Is this a current diagnosis for this admission?: YesDiagnosis Summary: The patient was diagnosed with left CVA. Confirmed by the MRI with a possible pontine infarct (2) Atrial fibrillation Is this a current diagnosis for this admission?: YesDiagnosis Summary: After the patient was started on metoprolol his right was controlled. He was seen by the cardiology and started on Eliquis (3) Diabetes Is this a current diagnosis for this admission?: YesDiagnosis Summary: We will continue with insulin (4) Hyperlipidemia Is this a current diagnosis for this admission?: Yes (5) Hypertension Is this a current diagnosis for this admission?: Yes - Transfer Medications Transfer Medications: Current Medications Acetaminophen (Tylenol 325 Mg Tablet) 650 mg PO Q4HP PRN PRN Reason: Temp greater than 101F Stop: 11/08/16 09:02 Acetaminophen/Hydrocodone Bitart (Adah 5-325 Mg Tablet) 1 tab PO Q4HP PRN PRN Reason: Pain Scale of 2-3 Stop: 10/16/16 09:02 Apixaban (Eliquis 5 Mg Tablet) 5 mg PO BID GEORGETTE Stop: 11/10/16 17:59 Last Admin: 10/13/16 09:12 Dose: 5 mg Atorvastatin Calcium (Lipitor 80 Mg Tablet) 80 mg PO QHS GEORGETTE Stop: 11/08/16 21:59 Last Admin: 10/12/16 22:35 Dose: 80 mg Dextrose (Dextrose Inj 50% Syringe (25 Gm/50 Ml)) 12.5 gm IV PRN PRN; Protocol PRN Reason: FOR BG 50-69 IN ALERT PATIENT Stop: 11/08/16 09:02 Dextrose (Dextrose Inj 50% Syringe (25 Gm/50 Ml)) 25 gm IV PRN PRN PRN Reason: Protocol Stop: 11/08/16 09:02 Glimepiride (Amaryl 4 Mg Tablet) 4 mg PO BIDACBS GEORGETTE Stop: 11/10/16 07:59 Last Admin: 10/13/16 09:12 Dose: 4 mg Glucagon (Glucagen Inj 1 Mg Vial) 1 mg IM PRN PRN; Protocol PRN Reason: Evaluate for BG < 70 Stop: 11/08/16 09:02 Glucose (Glutose 40% Gel 15 Gm Tube) 15 gm PO PRN PRN; Protocol PRN Reason: FOR BG 50-69 IN ALERT PATIENT Stop: 11/08/16 09:02 Glucose (Glutose 40% Gel 15 Gm Tube) 30 gm PO PRN PRN; Protocol PRN Reason: FOR BG < 50 IN ALERT PATIENT Stop: 11/08/16 09:02 Insulin Glargine (Lantus Insulin Inj 300 Unit/3 Ml Pen) 70 unit SUBCUT QHS GEORGETTE Stop: 11/12/16 21:59 Insulin Human Lispro (Humalog Insulin 100 Unit/1 Ml 3 Ml Vial) 0 - 12 unit SUBCUT ACHSP PRN PRN Reason: Protocol Stop: 11/08/16 09:08 Last Admin: 10/13/16 12:17 Dose: 4 unit Lansoprazole (Prevacid 30 Mg Odt Tablet) 30 mg PO Q6AM GEORGETTE Stop: 11/09/16 05:59 Last Admin: 10/13/16 05:36 Dose: 30 mg Magnesium Hydroxide (Milk Of Magnesia 30 Ml Udcup) 30 ml PO HSP PRN PRN Reason: constipation Stop: 11/08/16 09:08 Metoprolol Tartrate (Lopressor 25 Mg Tablet) 25 mg PO Q12 GEORGETTE Stop: 11/10/16 21:59 Last Admin: 10/13/16 09:12 Dose: 25 mg Sodium Chloride (Saline Flush 2.5 Ml Monoject Prefil Syrin) 2.5 ml IV Q8 GEORGETTE Stop: 11/08/16 13:59 Last Admin: 10/13/16 05:37 Dose: 2.5 ml - Allergies Allergies/Adverse Reactions: No Known Allergies Allergy (Verified 10/01/15 16:59) - Diet/Activity Discharge Diet: As Tolerated Hospital Course Hospital Course: The patient was admitted directly from the emergency room with an impression of left CVA with right sided weakness. His symptomatology has persisted he had an extensive workup done and down the only new diagnosis that was found was a possible additional pontine infarct. The patient did well he was seen by cardiology and he is anticoagulation was changed to Eliquis he was rate controlled with metoprolol. He did not have any recurrence of atrial fibrillation Physical Exam Vital Signs: Temp Pulse Resp BP Pulse Ox 98.1 F 66 20 133/67 H 96 10/13/16 11:43 10/13/16 11:43 10/13/16 11:43 10/13/16 11:43 10/13/16 11:43 Intake & Output 10/12/16 10/13/16 10/14/16 06:59 06:59 06:59 Intake Total 1939 1418 236 Output Total 19195 300 Balance 20 -405 -21 Weight 102 kg 103.2 kg General appearance: PRESENT: mild distress Head exam: PRESENT: atraumatic Eye exam: PRESENT: conjunctiva pink Neck exam: ABSENT: carotid bruit Respiratory exam: PRESENT: clear to auscultation josi Cardiovascular exam: PRESENT: irregular rhythm, +S1, +S2 Pulses: PRESENT: +1 pedal pulses bilateral Vascular exam: PRESENT: normal capillary refill GI/Abdominal exam: PRESENT: normal bowel sounds, soft Extremities exam: PRESENT: full ROM Musculoskeletal exam: PRESENT: other Neurological exam: PRESENT: abnormal gait, other. ABSENT: normal gait Results Laboratory Results: 10/13/16 05:16 10/12/16 05:34 10/13/16 05:16 WBC 8.2 RBC 4.93 Hgb 16.1 Hct 47.1 MCV 96 MCH 32.7 MCHC 34.3 RDW 13.2 Plt Count 175 10/09/16 10/09/16 09:56 11:35 Troponin I Cancelled < 0.012 Impressions: Head CT 10/09/16 00:00 IMPRESSION: No acute intracranial hemorrhage or acute territorial infarct. Chronic changes of atrophy and microvascular ischemia. Remote infarct in the left occipital lobe. Head MRI 10/09/16 00:00 IMPRESSION: MINIMAL MICROVASCULAR ISCHEMIC CHANGE. OLD CEREBELLAR INFARCTS. OLD INFARCT IN THE LEFT OCCIPITAL LOBE. NO ACUTE FINDINGS. Chest X-Ray 10/09/16 04:27 IMPRESSION: Mild left basilar atelectasis. Carotid Doppler Study 10/09/16 09:07 IMPRESSION: NO HEMODYNAMICALLY SIGNIFICANT STENOSIS. Head CTA 10/10/16 00:00 IMPRESSION: NO CTA EVIDENCE OF STENOSIS OR ANEURYSM OF THE [place] OF [place]. Neck CTA 10/10/16 00:00 IMPRESSION: 1. No dissection or high-grade stenosis in the bilateral carotids. Some narrowing in the distal right internal carotid at the skullbase looks less than 50%. Plan Discharge Plan: The patient is being transferred to an acute rehabilitation at [facility].
--- NOTE | 2016-10-13 19:50 | PDOC PROGRESS REPORT ---
Subjective Progress Note for:: 10/13/16 Subjective:: Patient was seen earlier in the morning prior to discharge. Patient seems to be doing better with gradual improvement. Pt is denying any chest arm or neck discomfort. Patient denying any PND, orthopnea. Patient denied any sustained palpitations, dizziness, syncope, near syncope. Patient denying any fever chills. Patient denying any other significant discomfort. He has intermittent dysphasia. Patient has right upper extremity weakness more than the lower extremity. Patient physically relatively unchanged from yesterday. Patient being discharged to a rehabilitation center. Review of systems: Rest review of systems negative. Medications: Medications have been reviewed. Physical Exam Vital Signs: Temp Pulse Resp BP Pulse Ox 98.1 F 63 20 133/67 H 96 10/13/16 11:43 10/13/16 14:00 10/13/16 11:43 10/13/16 11:43 10/13/16 11:43 Intake & Output 10/12/16 10/13/16 10/14/16 06:59 06:59 06:59 Intake Total 1940 1418 236 Output Total 1920 2125 300 Balance 20 -777 -64 Weight 102 kg 103.2 kg Exam: GENERAL: well-nourished and in no acute distress. Alert and oriented x3 HEAD: Atraumatic, normocephalic. EYES: Pupils equal round and reactive to light, extraocular movements intact, sclera anicteric, conjunctiva are normal. ENT: TMs normal, nares patent, oropharynx clear without exudates. Moist mucous membranes. No oral ulcerations or bleeding gums noted NECK: supple without lymphadenopathy. Trachea is central. No cervical or axillary lymphadenopathy noted. Carotids are 2+, JVD WNL LUNGS: Respiration seems nonlabored, no significant accessory muscle action noted. Breath sounds clear to auscultation bilaterally and equal noted. No wheezes rales or rhonchi noted. No significant dullness noted on percussion. CHEST: Palpation of the chest wall shows no significant chest wall tenderness. No other significant abnormalities noted. HEART: [place] FRONT COUNTER CLERK, No PSH, 1/6 MARI aortic area, 1/6 laws systolic murmur mitral area, no rubs, no gallops. ABDOMEN: Soft, no significant tenderness appreciated, normoactive bowel sounds. No guarding, no rebound. No rigidity noted . No masses appreciated. EXTREMITIES: Pedal pulses are 1-2+, no calf tenderness noted. No clubbing or cyanosis.trace to 1+ pedal edema noted NEUROLOGICAL: Focused neurological exam showed no significant neurologic deficit. Mild dysphasia and focal weakness right side, upper extremity more affected than the lower extremity. PSYCH: Normal mood, normal affect. Judgment and insight was not checked. SKIN: No significant ecchymosis, rash, ulcerations or signs of pruritus noted. MUSCULOSKELETAL EXAM: No significant joint swelling noted. Results Laboratory Results: 10/13/16 05:16 10/12/16 05:34 10/13/16 05:16 WBC 8.2 RBC 4.93 Hgb 16.1 Hct 47.1 MCV 96 MCH 32.7 MCHC 34.3 RDW 13.2 Plt Count 175 10/09/16 10/09/16 09:56 11:35 Troponin I Cancelled < 0.012 Impressions: Head CT 10/09/16 00:00 IMPRESSION: No acute intracranial hemorrhage or acute territorial infarct. Chronic changes of atrophy and microvascular ischemia. Remote infarct in the left occipital lobe. Head MRI 10/09/16 00:00 IMPRESSION: MINIMAL MICROVASCULAR ISCHEMIC CHANGE. OLD CEREBELLAR INFARCTS. OLD INFARCT IN THE LEFT OCCIPITAL LOBE. NO ACUTE FINDINGS. Chest X-Ray 10/09/16 04:27 IMPRESSION: Mild left basilar atelectasis. Carotid Doppler Study 10/09/16 09:07 IMPRESSION: NO HEMODYNAMICALLY SIGNIFICANT STENOSIS. Head CTA 10/10/16 00:00 IMPRESSION: NO CTA EVIDENCE OF STENOSIS OR ANEURYSM OF THE RAMPART OF [place]. Neck CTA 10/10/16 00:00 IMPRESSION: 1. No dissection or high-grade stenosis in the bilateral carotids. Some narrowing in the distal right internal carotid at the skullbase looks less than 50%. Assessment & Plan - Diagnosis (1) Acute CVA (cerebrovascular accident) Is this a current diagnosis for this admission?: Yes (2) Atrial fibrillation Qualifiers: Atrial fibrillation type: persistent Qualified Code(s): I48.1 - Persistent atrial fibrillation Is this a current diagnosis for this admission?: Yes (3) Diabetes Qualifiers: Diabetes mellitus type: type 2 Diabetes mellitus complication status: with unspecified complications Diabetes mellitus termite control representative insulin use: with termite control representative use Qualified Code(s): E11.8 - Type 2 diabetes mellitus with unspecified complications; Z79.4 - halfway (current) use of insulin Is this a current diagnosis for this admission?: Yes (4) Hyperlipidemia Qualifiers: Hyperlipidemia type: unspecified Qualified Code(s): E78.5 - Hyperlipidemia, unspecified Is this a current diagnosis for this admission?: Yes (5) Hypertension Is this a current diagnosis for this admission?: Yes (6) Stroke Qualifiers: CVA mechanism: unspecified Qualified Code(s): I63.9 - Cerebral infarction, unspecified Is this a current diagnosis for this admission?: Yes - Notes Notes: Patient has generally maintained a stable pattern. As regards atrial fibrillation will recommend chronic anticoagulation and rate control. Currently stable. Hypertension is well controlled. Would recommend good control of diabetes but avoid any tight control. Would recommend continuing statin therapy for dyslipidemia. Patient will benefit from rehabilitation therefore being transferred to rehabilitation facility. - Time Time with patient: 15-25 minutes Medications reviewed and adjusted accordingly: Yes
[2016-10-13] MEDS ORDERED: INSULIN GLARGINE,HUM.REC.ANLOG 300 UNIT/3 ML INSULN.PEN SUBCUT SCH (22:00)
== END 2016-10-13 16:52 | DRG 65 ==
LOC: ER 04:05 → EH 07:54 → OBSVTOIN 09:03 → 3S 15:44
PROVIDERS: ADMIT Internal Medicine; ATTEND Internal Medicine
DX: I63.9 Cerebral infarction, unspecified (principal); I48.1 Persistent atrial fibrillation; G81.91 Hemiplegia, unspecified affecting right dominant side; E11.9 Type 2 diabetes mellitus without complications; I10 Essential (primary) hypertension; R29.810 Facial weakness; R47.81 Slurred speech; E78.5 Hyperlipidemia, unspecified; R47.02 Dysphasia; E66.9 Obesity, unspecified; Z79.82 Long term (current) use of aspirin; Z79.4 Long term (current) use of insulin; Z79.84 Long term (current) use of oral hypoglycemic drugs; Z86.73 Personal history of transient ischemic attack (TIA), and cerebral infarction without residual deficits; Z79.02 Long term (current) use of antithrombotics/antiplatelets; Z68.31 Body mass index [BMI] 31.0-31.9, adult
CPT/HCPCS: 36415; 70450; 70496; 70498; 70551; 71010; 80048; 80053; 80061; 81001; 82272; 82962; 83036; 83735; 84484; 85025; 85027; 85610; 85730; 93005; 93010; 93306; 93880; 96372; 99285; J1650; J1815; J3490

== ENCOUNTER → 2016-11-11 | Outpatient (CLI) | payer BC ==
[2016-11-11 11:33] LABS: ABSOLUTE EOSINOPHILS # (AUTO) 0.1 10^3/uL (0.0-0.6); ABSOLUTE MONOCYTES (AUTO) 0.7 10^3/uL (0.1-1.4); ABSOLUTE NEUT (AUTO) 5.8 10^3/uL (1.7-8.2); BASOPHILS % (AUTO) 0.4 % (0-2); EOSINOPHILS % (AUTO) 1.6 % (0-6); HEMATOCRIT 45.8 % (37.9-51.0); HEMOGLOBIN 15.9 g/dL (13.5-17.0); HGB HCT DIFFERENCE 1.9; LYMPHOCYTES % (AUTO) 23.2 % (13-45); MEAN CORPUSCULAR HEMOGLOBIN 32.6 pg (27.0-33.4); MEAN CORPUSCULAR HGB CONC 34.7 g/dL (32.0-36.0); MEAN CORPUSCULAR VOLUME 94 fl (80-97); MONOCYTES % (AUTO) 8.5 % (3-13); RED BLOOD COUNT 4.87 10^6/uL (4.35-5.55); RED CELL DISTRIBUTION WIDTH 12.8 % (11.5-14.0); SEGMENTED NEUTROPHILS % (AUTO) 66.3 % (42-78); WHITE BLOOD COUNT 8.7 10^3/uL (4.0-10.5)
[2016-11-11 12:00] LABS: ALANINE AMINOTRANSFERASE 40 U/L (21-72); ALBUMIN 4.1 g/dL (3.5-5.0); ALKALINE PHOSPHATASE 58 U/L (38-126); ANION GAP 13 (5-19); ASPARTATE AMINO TRANSFERASE 23 U/L (17-59); BILIRUBIN,DIRECT 0.1 mg/dL (0.0-0.4); BILIRUBIN,TOTAL 0.6 mg/dL (0.2-1.3); BLOOD UREA NITROGEN 14 mg/dL (7-20); CALCIUM 9.7 mg/dL (8.4-10.2); CARBON DIOXIDE 27 mmol/L (22-30); CHLORIDE 103 mmol/L (98-107); CHOLESTEROL 174.55 mg/dL (0-200); CREATININE RESULT 0.73 mg/dL (0.52-1.25); DIGOXIN 1.13 ng/mL (0.8-2.0); Direct HDL 49 mg/dL (>40); GLUCOSE 185 mg/dL (75-110); POTASSIUM 4.6 mmol/L (3.6-5.0); SODIUM 143.3 mmol/L (137-145); TOTAL PROTEIN 7.6 g/dL (6.3-8.2); TRIGLYCERIDES 162 mg/dL (<150)
[2016-11-11 12:08] LABS: DIRECT LDL 92 mg/dL (<100)
[2016-11-11 12:12] LABS: VLDL CHOLESTEROL 32.4 mg/dL (10-31)
[2016-11-12 11:40] LABS: CREATININE URINE 112.1 mg/dL (Not Estab.); MICROALBUMIN URINE 256.1 ug/mL (Not Estab.)
== END ==
LOC: OD 10:29
PROVIDERS: ATTEND Family Medicine Geriatric Medicine
DX: I63.9 Cerebral infarction, unspecified (principal); I48.0 Paroxysmal atrial fibrillation; E11.9 Type 2 diabetes mellitus without complications; Z79.899 Other long term (current) drug therapy
CPT/HCPCS: 36415; 80053; 80061; 80162; 82043; 82570; 83036; 84443; 85025

== ENCOUNTER → 2016-12-07 | Outpatient (CLI) | payer BC ==
[2016-12-07 12:22] LABS: ABSOLUTE EOSINOPHILS # (AUTO) 0.1 10^3/uL (0.0-0.6); ABSOLUTE LYMPHOCYTES (AUTO) 2.3 10^3/uL (0.5-4.7); ABSOLUTE MONOCYTES (AUTO) 0.8 10^3/uL (0.1-1.4); BASOPHILS % (AUTO) 0.4 % (0-2); EOSINOPHILS % (AUTO) 1.7 % (0-6); HEMATOCRIT 47.2 % (37.9-51.0); HEMOGLOBIN 15.9 g/dL (13.5-17.0); HGB HCT DIFFERENCE 0.5; LYMPHOCYTES % (AUTO) 27.9 % (13-45); MEAN CORPUSCULAR HEMOGLOBIN 32.1 pg (27.0-33.4); MEAN CORPUSCULAR HGB CONC 33.7 g/dL (32.0-36.0); MEAN CORPUSCULAR VOLUME 95 fl (80-97); MONOCYTES % (AUTO) 9.4 % (3-13); RED BLOOD COUNT 4.96 10^6/uL (4.35-5.55); SEGMENTED NEUTROPHILS % (AUTO) 60.6 % (42-78); WHITE BLOOD COUNT 8.3 10^3/uL (4.0-10.5)
[2016-12-07 12:55] LABS: APPEARANCE,URINE SLIGHTLY-CLOUDY; BILIRUBIN,URINE NEGATIVE (NEGATIVE); GLUCOSE, URINE 150 mg/dL (NEGATIVE); KETONES,URINE NEGATIVE (NEGATIVE); LEUKOCYTE ESTERASE,URINE NEGATIVE (NEGATIVE); NITRITE,URINE NEGATIVE (NEGATIVE); PROTEIN,URINE 100 mg/dL (NEGATIVE); URINE SPECIFIC GRAVITY 1.021; UROBILINOGEN,URINE NEGATIVE mg/dL (<2.0)
[2016-12-07 12:56] LABS: ANION GAP 11 (5-19); BLOOD UREA NITROGEN 14 mg/dL (7-20); CALCIUM 9.7 mg/dL (8.4-10.2); CARBON DIOXIDE 27 mmol/L (22-30); CHLORIDE 102 mmol/L (98-107); CREATININE RESULT 0.85 mg/dL (0.52-1.25); GLUCOSE 181 mg/dL (75-110); POTASSIUM 4.7 mmol/L (3.6-5.0); SODIUM 140.3 mmol/L (137-145)
--- NOTE | 2016-12-07 17:00 | EKG REPORT ---
SEVERITY:- BORDERLINE ECG - SINUS RHYTHM BORDERLINE T ABNORMALITIES, INFERIOR LEADS : Confirmed by: Constantine Lee 07-Dec-2016 16:59:31
== END ==
LOC: OD 10:35
PROVIDERS: ATTEND Orthopaedic Surgery
DX: Z01.810 Encounter for preprocedural cardiovascular examination (principal); Z01.812 Encounter for preprocedural laboratory examination; Z01.818 Encounter for other preprocedural examination
CPT/HCPCS: 36415; 71020; 80048; 81001; 83036; 85025; 93005; 93010

== ENCOUNTER 2017-01-03 06:26 | Inpatient (IN) | payer BC ==
[~2017-01-03 06:26] MED LIST: BUPIVACAINE INJ/PF LIPOSOME/PF 266 MG/20 ML SDV IJ PRN; CEFAZOLIN INJ 1 GM VIAL IV PRN; IBUPROFEN 800 MG/NS 250 ML IV PRN; LACTATED RINGERS 1000 ML IV PRN; LANSOPRAZOLE 15 MG TAB.RAP.DR PO PRN; OXYCODONE HCL SR 10 MG TABLET PO PRN; SCOPOLAMINE HYDROBROMIDE 1.5 MG PATCH.TD72 TOP PRN; VANCOMYCIN HCL 1,000 MG in DEXTROSE 5%-WATER 250 ML IV PRN
[2017-01-03] MEDS ORDERED: MIDAZOLAM 2 MG/2 ML INJ ONE (06:58)
[2017-01-03] MEDS ORDERED: FENTANYL CITRATE INJ/PF 100 MCG/2 ML AMPUL ONE (06:58)
[2017-01-03] MEDS ORDERED: EPHEDRINE SULFATE INJ 50 MG/1 ML AMPULE ONE (06:58)
[2017-01-03] MEDS ORDERED: TRANEXAMIC ACID INJ/PF 1,000 MG/10 ML SDV IV ONE ×2 (06:59→12:00)
[2017-01-03] MEDS ORDERED: PROPOFOL INJ 200 MG/20 ML VIAL IV ONE (06:59)
[2017-01-03] MEDS ORDERED: DEXMEDETOMIDINE INJ 80 MCG/20 ML VIAL IV ONE (06:59)
[2017-01-03 07:16] LABS: PROTHROMBIN TIME 13.8 SEC (11.4-15.4)
[2017-01-03 07:17] LABS: PARTIAL THROMBOPLASTIN TIME 34.1 SEC (23.5-35.8)
[2017-01-03] MEDS ORDERED: THROMBIN (BOVINE) TOPICAL 5000 UNIT VIAL ONE (07:32)
[2017-01-03] MEDS ORDERED: BUPIVACAINE INJ/PF LIPOSOME/PF 266 MG/20 ML SDV ONE (07:32)
[2017-01-03] MEDS ORDERED: THROMBIN (BOVINE) TOPICAL 20000 UNIT VIAL ONE (07:32)
[2017-01-03] MEDS: METOPROLOL TARTRATE 25 MG TABLET PO ONE ×2 (07:48→12:48)
[2017-01-03] MEDS ORDERED: THROMBIN (BOVINE) 5000 UNIT EPITAXIS KIT ONE (08:35)
[2017-01-03] MEDS ORDERED: SILDENAFIL CITRATE 50 MG PO PRN (09:54)
--- NOTE | 2017-01-03 09:54 | Operative Report ---
Operative Report DATE OF SURGERY: 01/03/17 PREOPERATIVE DIAGNOSIS: Left knee arthritis OPERATION: Left knee arthroplasty SURGEON: SHERIE ZURITA ANESTHESIA: Spinal TISSUE REMOVED OR ALTERED: Bone to pathology ESTIMATED BLOOD LOSS: 100 PROCEDURE: Implants used: Femur: Triathlon #6 CR femur Tibia: 6 tibia Tibial liner: 11 mm CS insert Patella: 38 mm oval patella Procedure with the patient supine on the operating table the left the limb is prepped and draped in a sterile fashion. The limb was elevated for exsanguination and the tourniquet inflated to 280 torr. A standard midline median parapatellar approach the knee is taken. Access is gained to the femoral canal through the intercondylar notch. Intramedullary alignment instrumentation used to resect 10 mm of distal femur in 5 of valgus. Sizing guide indicated a size 6 femur. Appropriate cutting jig is then used to fashion anterior posterior and chamfer cuts. A trial reduction femurs performed and this is judged to be adequate. Attention was next turned to the tibia. Using an extra medullary alignment system 9 millimeters was resected off the lateral tibial plateau. This is sized to a size 6 tibia. A trial reduction was now performed with a 6 femur and a 6 tibia using a 11 millimeters spacer. It is full extension and central patellofemoral tracking. The articular surface the patella was next resected using an oscillating saw. All trial implants were removed. Polymethylmethacrylate is mixed and used to cement the above implants in place. On adequate curing the cement excess cement was removed the tourniquet was deflated hemostasis obtained the wound is then closed in layers using interrupted Vicryl followed by michael. A sterile compressive dressing was applied and the patient returned to recovery room in satisfactory condition.
[2017-01-03] MEDS ORDERED: ONDANSETRON HCL INJ/PF 4 MG/2 ML SDV IV PRN ×3 (09:55→15:03)
[2017-01-03] MEDS ORDERED: MORPHINE SULFATE 10 MG/ML INJ IM PRN (09:55)
[2017-01-03] MEDS ORDERED: MAG HYDROX/AL HYDROX/SIMETH SUSP 30 ML UDCUP PO PRN (09:55)
[2017-01-03] MEDS ORDERED: MORPHINE SULFATE 10 MG/ML INJ IV PRN ×2 (09:55)
[2017-01-03] MEDS ORDERED: DIPHENHYDRAMINE HCL 50 MG/ML VIAL IV PRN ×2 (09:55→10:14)
[2017-01-03] MEDS ORDERED: ONDANSETRON 4 MG TAB.RAPDIS PO PRN (09:55)
[2017-01-03] MEDS ORDERED: ZOLPIDEM TARTRATE 5 MG TABLET PO PRN (09:55)
[2017-01-03] MEDS ORDERED: MEPERIDINE HCL/PF INJ 25 MG/1 ML DISP.SYRIN IV PRN (10:14)
[2017-01-03] MEDS ORDERED: PROMETHAZINE HCL INJ 25 MG/1 ML VIAL IV PRN (10:14)
[2017-01-03] MEDS ORDERED: FENTANYL CITRATE INJ/PF 100 MCG/2 ML AMPUL IV PRN ×3 (10:14)
--- NOTE | 2017-01-03 11:34 | RADIOLOGY REPORT (SQ) ---
EXAM DESCRIPTION: KNEE LEFT 2 VIEWS COMPLETED DATE/TIME: 01/03/2017 11:21 am REASON FOR STUDY: Post OP -Long Cassette in PACU M17.12 UNILATERAL PRIMARY OSTEOARTHRITIS, LEFT KNE E COMPARISON: None. NUMBER OF VIEWS: Two views TECHNIQUE: Digital radiographic images of the left knee post-procedure. LIMITATIONS: None. FINDINGS: BONES: No worrisome or unexpected findings post-procedure. DEVICE: Left total knee replacement with patellar resurfacing. Loose bodies in the posterior interco ndylar region. SOFT TISSUES: No worrisome findings. Expected postoperative soft tissue changes. IMPRESSION: SATISFACTORY POSTOPERATIVE LEFT KNEE. TECHNICAL DOCUMENTATION: JOB ID: [id number] [employer]- All Rights Reserved
[2017-01-03] MEDS ORDERED: PHENYLEPHRINE HCL INJ/PF 10 MG/1 ML SDV ONE (12:23)
[2017-01-03] MEDS ORDERED: LIDOCAINE 2% INJ-PF (20 MG/ML) 10 ML AMPUL ONE (12:23)
[2017-01-03] MEDS ORDERED: METOCLOPRAMIDE HCL INJ/PF 10 MG/2 ML SDV ONE (12:23)
[2017-01-03] MEDS ORDERED: ONDANSETRON HCL INJ/PF 4 MG/2 ML SDV ONE (12:23)
[2017-01-03] MEDS: METOPROLOL TARTRATE 25 MG TABLET PO SCH ×2 (12:53→22:19)
[2017-01-03] MEDS: OXYCODONE HCL SR 10 MG TABLET PO SCH ×2 (12:55→22:19)
[2017-01-03] MEDS: PRENATAL VITAMIN W-O CA NO5/FE FUMARATE/FA CAPSULE PO SCH (13:21)
[2017-01-03] MEDS: SENNOSIDES/DOCUSATE 8.6-50 MG 1 EACH TABLET PO SCH ×2 (13:21→17:31)
[2017-01-03] MEDS: PREGABALIN 75 MG CAPSULE PO SCH ×2 (13:23→17:31)
[2017-01-03] MEDS: DIAZEPAM 2 MG TABLET PO SCH (13:23)
[2017-01-03] MEDS: IBUPROFEN 800 MG in NORMAL SALINE 250 ML IV SCH ×2 (14:09→22:19)
[2017-01-03] MEDS: MORPHINE SULFATE 10 MG/ML INJ IV PRN ×2 (15:09→19:29)
[2017-01-03] MEDS: GLIMEPIRIDE 4 MG TABLET PO SCH (15:11)
[2017-01-03] MEDS: OXYCODONE HCL IR 5 MG TABLET PO PRN (17:35)
[2017-01-03] MEDS ORDERED: INSULIN GLARGINE HUM REC ANLOG 56 UNIT SQ SCH (18:00)
[2017-01-03] MEDS: RINGERS SOLUTION,LACTATED 1,000 ML IV PRN (20:04)
[2017-01-03] MEDS ORDERED: VANCOMYCIN HCL 1,000 MG in DEXTROSE 5%-WATER 250 ML IV ONE (22:00)
[2017-01-03] MEDS: ATORVASTATIN CALCIUM 80 MG TABLET PO SCH (22:19)
[2017-01-03] MEDS: RIVAROXABAN 10 MG TABLET PO SCH (22:19)
[2017-01-04] MEDS: OXYCODONE HCL IR 5 MG TABLET PO PRN (01:14)
[2017-01-04] MEDS: LANSOPRAZOLE 30 MG TAB.RAP.DR PO SCH (05:29)
[2017-01-04] MEDS: IBUPROFEN 800 MG in NORMAL SALINE 250 ML IV SCH ×3 (05:29→21:42)
[2017-01-04] MEDS: RINGERS SOLUTION,LACTATED 1,000 ML IV PRN ×2 (05:37→16:45)
[2017-01-04 05:53] LABS: HEMATOCRIT 38.3 % (37.9-51.0); HEMOGLOBIN 12.9 g/dL (13.5-17.0); HGB HCT DIFFERENCE 0.4; MEAN CORPUSCULAR HEMOGLOBIN 32.1 pg (27.0-33.4); MEAN CORPUSCULAR HGB CONC 33.8 g/dL (32.0-36.0); MEAN CORPUSCULAR VOLUME 95 fl (80-97); RED BLOOD COUNT 4.04 10^6/uL (4.35-5.55); RED CELL DISTRIBUTION WIDTH 13.2 % (11.5-14.0); WHITE BLOOD COUNT 9.8 10^3/uL (4.0-10.5)
--- NOTE | 2017-01-04 06:54 | PDOC PROGRESS REPORT ---
Subjective Progress Note for:: 01/04/17 Subjective:: Patient without any clear complaints Physical Exam Vital Signs: Temp Pulse Resp BP Pulse Ox 37.4 C 82 19 137/66 H 90 L 01/04/17 03:00 01/04/17 03:00 01/04/17 03:00 01/04/17 03:00 01/04/17 03:00 Intake & Output 01/02/17 01/03/17 01/04/17 06:59 06:59 06:59 Intake Total 0 5658 Output Total 2300 Balance 0 3358 General appearance: PRESENT: no acute distress Head exam: PRESENT: normocephalic Eye exam: PRESENT: EOMI Respiratory exam: PRESENT: unlabored Cardiovascular exam: PRESENT: RRR Pulses: PRESENT: +1 pedal pulses bilateral Vascular exam: PRESENT: normal capillary refill GI/Abdominal exam: PRESENT: soft Rectal exam: PRESENT: deferred Extremities exam: PRESENT: other - Right lower extremity dressing clean dry and intact. Distal neurovascular examination is intact. Neurological exam: PRESENT: alert, awake, oriented to person, oriented to place , oriented to time, oriented to situation. ABSENT: motor sensory deficit Psychiatric exam: PRESENT: appropriate affect, normal mood. ABSENT: homicidal ideation, suicidal ideation Skin exam: PRESENT: dry, intact, warm. ABSENT: cyanosis, rash Results Laboratory Results: 01/04/17 05:12 01/04/17 01/04/17 05:12 05:12 WBC 9.8 RBC 4.04 L Hgb 12.9 L Hct 38.3 MCV 95 MCH 32.1 MCHC 33.8 RDW 13.2 Plt Count 147 L Sodium Cancelled Potassium Cancelled Chloride Cancelled Carbon Dioxide Cancelled Anion Gap Cancelled BUN Cancelled Creatinine Cancelled Est GFR ( Amer) Cancelled Est GFR (Non-Af Amer) Cancelled Glucose Cancelled Calcium Cancelled Impressions: Knee X-Ray 01/03/17 09:55 IMPRESSION: SATISFACTORY POSTOPERATIVE LEFT KNEE. Status: Imported from PACS Assessment & Plan - Diagnosis (1) Arthritis of knee, right Is this a current diagnosis for this admission?: YesPlan: 66-year-old white male postop day 1 from right knee arthroplasty. Hematocrit remains above 38%. He ambulated 70 feet with physical therapy yesterday. Anticipate discharge home with home health nursing tomorrow. - Time Time Spent with patient: 15-24 minutes Anticipated discharge: Home with Homehealth Within: within 24 hours
[2017-01-04 07:00] LABS: ANION GAP 7 (5-19); BLOOD UREA NITROGEN 12 mg/dL (7-20); CALCIUM 8.4 mg/dL (8.4-10.2); CARBON DIOXIDE 24 mmol/L (22-30); CHLORIDE 106 mmol/L (98-107); CREATININE RESULT 0.78 mg/dL (0.52-1.25); GLUCOSE 237 mg/dL (75-110)
[2017-01-04] MEDS ORDERED: BENAZEPRIL HCL 20 MG TABLET PO SCH (08:00)
[2017-01-04] MEDS: GLIMEPIRIDE 4 MG TABLET PO SCH ×2 (09:09→16:44)
[2017-01-04] MEDS: SENNOSIDES/DOCUSATE 8.6-50 MG 1 EACH TABLET PO SCH ×2 (09:10→18:07)
[2017-01-04] MEDS: BENAZEPRIL HCL 20 MG TABLET PO SCH (09:10)
[2017-01-04] MEDS: PREGABALIN 75 MG CAPSULE PO SCH ×2 (09:10→18:07)
[2017-01-04] MEDS: OXYCODONE HCL SR 10 MG TABLET PO SCH ×2 (09:11→21:43)
[2017-01-04] MEDS: METOPROLOL TARTRATE 25 MG TABLET PO SCH ×2 (09:11→21:43)
[2017-01-04] MEDS: PRENATAL VITAMIN W-O CA NO5/FE FUMARATE/FA CAPSULE PO SCH (09:13)
[2017-01-04] MEDS: DIAZEPAM 2 MG TABLET PO SCH (09:14)
[2017-01-04] MEDS: ATORVASTATIN CALCIUM 80 MG TABLET PO SCH (21:42)
[2017-01-04] MEDS: RIVAROXABAN 10 MG TABLET PO SCH (21:42)
[2017-01-05] MEDS: LANSOPRAZOLE 30 MG TAB.RAP.DR PO SCH (05:37)
[2017-01-05] MEDS: IBUPROFEN 800 MG in NORMAL SALINE 250 ML IV SCH (05:37)
[2017-01-05 06:00] LABS: HEMATOCRIT 37.5 % (37.9-51.0); HEMOGLOBIN 12.3 g/dL (13.5-17.0); HGB HCT DIFFERENCE -0.6; MEAN CORPUSCULAR HEMOGLOBIN 31.7 pg (27.0-33.4); MEAN CORPUSCULAR HGB CONC 32.9 g/dL (32.0-36.0); MEAN CORPUSCULAR VOLUME 96 fl (80-97); RED BLOOD COUNT 3.89 10^6/uL (4.35-5.55); WHITE BLOOD COUNT 11.5 10^3/uL (4.0-10.5)
[2017-01-05] MEDS ORDERED: RINGERS SOLUTION,LACTATED 1,000 ML IV PRN (06:55)
--- NOTE | 2017-01-05 07:09 | PDOC PROGRESS REPORT ---
Subjective Progress Note for:: 01/05/17 Subjective:: Patient more confused Physical Exam Vital Signs: Temp Pulse Resp BP Pulse Ox 36.8 C 82 19 102/56 L 94 01/05/17 00:00 01/05/17 00:00 01/05/17 00:00 01/05/17 00:00 01/05/17 00:00 Intake & Output 01/04/17 01/05/17 01/06/17 06:59 06:59 06:59 Intake Total 5658 1290 Output Total 2300 50 Balance 3358 1240 Weight 111.1 kg General appearance: PRESENT: no acute distress Head exam: PRESENT: normocephalic Respiratory exam: PRESENT: unlabored Cardiovascular exam: PRESENT: RRR Pulses: PRESENT: +1 pedal pulses bilateral Vascular exam: PRESENT: normal capillary refill GI/Abdominal exam: PRESENT: soft Rectal exam: PRESENT: deferred Extremities exam: PRESENT: other - He dressing clean dry and intact. Minimal edema. Neurological exam: PRESENT: altered Psychiatric exam: PRESENT: depressed Skin exam: PRESENT: dry, intact, warm. ABSENT: cyanosis, rash Results Laboratory Results: 01/05/17 05:12 01/04/17 06:33 01/04/17 01/05/17 06:33 05:12 WBC 11.5 H RBC 3.89 L Hgb 12.3 L Hct 37.5 L MCV 96 MCH 31.7 MCHC 32.9 RDW 13.0 Plt Count 155 Sodium 137.0 Potassium 4.0 Chloride 106 Carbon Dioxide 24 Anion Gap 7 BUN 12 Creatinine 0.78 Est GFR ( Amer) > 60 Est GFR (Non-Af Amer) > 60 Glucose 237 H Calcium 8.4 Impressions: Knee X-Ray 01/03/17 09:55 IMPRESSION: SATISFACTORY POSTOPERATIVE LEFT KNEE. Status: Imported from PACS Assessment & Plan - Diagnosis (1) Arthritis of knee, right Is this a current diagnosis for this admission?: YesPlan: Patient with oliguria and altered mental status of uncertain etiology. He is made minimal progress with physical therapy. Plan will be to stop narcotic medication as well as Lyrica. I every 6 as needed. Reinstitute maintenance IV fluids. Consult the hospitalist. - Time Time Spent with patient: 15-24 minutes Anticipated discharge: SNF Within: within 24 hours
[2017-01-05] MEDS: GLIMEPIRIDE 4 MG TABLET PO SCH ×2 (10:11→15:45)
[2017-01-05] MEDS: PRENATAL VITAMIN W-O CA NO5/FE FUMARATE/FA CAPSULE PO SCH (10:12)
[2017-01-05] MEDS: DIAZEPAM 2 MG TABLET PO SCH (10:12)
[2017-01-05] MEDS: METOPROLOL TARTRATE 25 MG TABLET PO SCH ×2 (10:12→21:56)
[2017-01-05] MEDS: BENAZEPRIL HCL 20 MG TABLET PO SCH (10:12)
[2017-01-05] MEDS: SENNOSIDES/DOCUSATE 8.6-50 MG 1 EACH TABLET PO SCH ×2 (10:13→17:27)
[2017-01-05] MEDS ORDERED: NORMAL SALINE 1000 ML 1,000 ML IV ONE (13:32)
[2017-01-05] MEDS ORDERED: HALOPERIDOL LACTATE INJ 5 MG/1 ML VIAL IV PRN ×2 (14:16→17:25)
[2017-01-05] MEDS ORDERED: HALOPERIDOL LACTATE INJ 5 MG/1 ML VIAL IV ONE (14:16)
--- NOTE | 2017-01-05 15:04 | PDOC CONSULTATION ---
Consultation Consult Date: 01/05/17 Attending physician:: SHERIE ZURITA Consult reason:: Altered mental status History of Present Illness Admission Date/PCP: 01/03/17 06:26 IMANI SANTORO MD Patient complains of: Confusion and agitation History of Present Illness: VISH NUÑEZ JR is a 66 year old male who is postop day #2 after left total knee arthroplasty, by Dr. Zurita. Patient had periods of increasing confusion overnight. Apparently he was fine the initial 24 hours after surgery. He was given narcotic analgesics, but not in excess. He also has a history of a recent cerebral infarct in the left bea region in September 2016. He has mild right-sided residual deficit. He has no dysphasia or facial droop. He has had no periods of hypoglycemia postoperatively. He did have a mild transient period of hypotension with blood pressures in the 80s systolic that resolved with IV fluid bolus. Patient did have an MRI of the head in September 2016 showed some mild small vessel disease. reports no periods of confusion at home. No alcohol or substance issues either. Past Medical History Cardiac Medical History: Reports: Atrial Fibrillation - INTERMITTENT, Myocardial Infarction, Hyperlipidema, Hypertension Denies: Congestive Heart Failure, Coronary Artery Disease, Peripheral Vascular Disease, Pulmonary Embolism, Heart Murmur Pulmonary Medical History: Reports: Bronchitis - years ago, Pneumonia - years ago Denies: Asthma, Chronic Obstructive Pulmonary Disease (COPD), Respiratory Failure, Sleep Apnea, Tuberculosis EENT Medical History: Reports: None Neurological Medical History: Reports: Ischemic CVA - left bea in September of 2016 Denies: Seizures Endocrine Medical History: Reports: Diabetes Mellitus Type 2 Denies: Hyperthyroidism, Hypothyroidism Renal/ Medical History: Reports: None Denies: End Stage Renal Disease Malignancy Medical History: Denies: Breast Cancer, Cervical Cancer, Lung Cancer, Ovarian Cancer GI Medical History: Reports: None - Completely Musculoskeltal Medical History: Reports: Arthritis Denies: Fibromyalgia Skin Medical History: Reports: None Psychiatric Medical History: Reports: None Denies: Dementia Traumatic Medical History: Reports: None Hematology: Reports: None Infectious Medical History: Reports: None - 1 Past Surgical History Past Surgical History: Reports: Orthopedic Surgery - back, R rotator cuff, Tonsillectomy Denies: Appendectomy, Cholecystectomy, Coronary Artery Bypass Graft, Gastric Bypass Surgery, Herniorrhaphy, Pacemaker Social History Information Source: Relative Lives with: Spouse/Significant other Smoking Status: Former Smoker Cigarettes Packs Per Day: 1.5 Number of Years Smokin Frequency of Alcohol Use: None Hx Recreational Drug Use: No Hx Prescription Drug Abuse: No - Advance Directive Resuscitation Status: Full Code Family History Family History: DM, Hypertension. denies: CVA Parental Family History Reviewed: Yes Children Family History Reviewed: Yes Sibling(s) Family History Reviewed.: Yes Medication/Allergy Home Medications: Apixaban [Eliquis 5 mg Tablet] 5 mg PO BID #0 tablet 10/13/16 Atorvastatin Calcium [Lipitor 80 mg Tablet] 80 mg PO QHS #0 tablet 10/13/16 Metoprolol Tartrate [Lopressor 25 mg Tablet] 25 mg PO Q12 #0 tablet 10/13/16 Benazepril HCl [Lotensin 20 mg Tablet] 20 mg PO QAM 12/21/16 Diazepam [Valium] 2 mg PO DAILY 12/21/16 Glimepiride [Amaryl 4 mg Tablet] 4 mg PO BID 12/21/16 Insulin Glargine,Hum.rec.anlog [Rosalia Solfreeman] 56 unit SQ QPM 12/21/16 Sildenafil Citrate [Viagra] 50 mg PO DAILY PRN 12/21/16 Allergies/Adverse Reactions: No Known Allergies Allergy (Verified 10/01/15 16:59) Review of Systems ROS unobtainable: Due to mental status Physical Exam Vital Signs: Temp Pulse Resp BP Pulse Ox 98.9 F 71 24 H 113/54 L 92 01/05/17 12:00 01/05/17 12:00 01/05/17 12:00 01/05/17 12:00 01/05/17 12:00 Intake & Output 01/04/17 01/05/17 01/06/17 06:59 06:59 06:59 Intake Total 5658 1290 Output Total 2300 50 Balance 3358 1240 Weight 111.1 kg General appearance: PRESENT: no acute distress, obese, well-developed, well- nourished Head exam: PRESENT: atraumatic, normocephalic Eye exam: PRESENT: conjunctiva pink, EOMI, PERRLA. ABSENT: scleral icterus Ear exam: PRESENT: normal external ear exam Mouth exam: PRESENT: moist, tongue midline Neck exam: ABSENT: carotid bruit, JVD, lymphadenopathy, thyromegaly Respiratory exam: PRESENT: clear to auscultation josi. ABSENT: rales, rhonchi, wheezes Cardiovascular exam: PRESENT: RRR. ABSENT: diastolic murmur, rubs, systolic murmur Pulses: PRESENT: normal dorsalis pedis pul Vascular exam: PRESENT: normal capillary refill GI/Abdominal exam: PRESENT: normal bowel sounds, soft. ABSENT: distended, guarding, mass, organolmegaly, rebound, tenderness Rectal exam: PRESENT: deferred Extremities exam: PRESENT: full ROM. ABSENT: calf tenderness, clubbing, pedal edema Musculoskeletal exam: PRESENT: full ROM, tenderness - left knee Neurological exam: PRESENT: alert, altered, oriented to person, CN II-XII grossly intact Psychiatric exam: PRESENT: agitated, anxious Skin exam: PRESENT: other - left knee dressing dry and intact Results Laboratory Results: 01/05/17 05:12 01/04/17 06:33 01/05/17 05:12 WBC 11.5 H RBC 3.89 L Hgb 12.3 L Hct 37.5 L MCV 96 MCH 31.7 MCHC 32.9 RDW 13.0 Plt Count 155 Impressions: Knee X-Ray 01/03/17 09:55 IMPRESSION: SATISFACTORY POSTOPERATIVE LEFT KNEE. Assessment & Plan - Diagnosis (1) Altered mental status Is this a current diagnosis for this admission?: YesPlan: Most likely secondary to narcotic analgesics. Will hold for now. Haldol prn for agitation. Will CT head tomorrow if no improvement. Patient with no periods of confusion preoperatively according to . Patient had left bea infarct in September with mild residual right extremity weakness, no cognitive dysfunction according to spouse. (2) Total knee replacement status Qualifiers: Laterality: left Qualified Code(s): Z96.652 - Presence of left artificial knee joint (3) Diabetes Qualifiers: Diabetes mellitus type: type 2 Diabetes mellitus complication status: with unspecified complications Diabetes mellitus residential insulin use: with rodent exterminator use Qualified Code(s): E11.8 - Type 2 diabetes mellitus with unspecified complications; Z79.4 - shelter (current) use of insulin Is this a current diagnosis for this admission?: YesPlan: Continue current insulin therapy with sliding scale coverage. Hold toujeo (4) Atrial fibrillation Qualifiers: Atrial fibrillation type: persistent Qualified Code(s): I48.1 - Persistent atrial fibrillation (5) Hypertension Qualifiers: Hypertension type: essential hypertension Qualified Code(s): I10 - Essential (primary) hypertension Plan: Patient had period of mild hypotension with systolic BP in the 80's this am. Hold antihypertensives for BP < 100mmHg (6) Stroke Qualifiers: CVA mechanism: unspecified Qualified Code(s): I63.9 - Cerebral infarction, unspecified Is this a current diagnosis for this admission?: YesPlan: Continue xarelto, statin. No new deficits. - Time Time Spent: 50 to 70 Minutes Critical Time spent with patient: 25-34 minutes Medications reviewed and adjusted accordingly: Yes
[2017-01-05] MEDS ORDERED: RINGERS SOLUTION,LACTATED 500 ML IV ONE (17:25)
[2017-01-05 18:42] LABS: HEMATOCRIT 38.4 % (37.9-51.0); HEMOGLOBIN 12.9 g/dL (13.5-17.0); HGB HCT DIFFERENCE 0.3; MEAN CORPUSCULAR HEMOGLOBIN 31.5 pg (27.0-33.4); MEAN CORPUSCULAR HGB CONC 33.4 g/dL (32.0-36.0); MEAN CORPUSCULAR VOLUME 94 fl (80-97); RED BLOOD COUNT 4.08 10^6/uL (4.35-5.55); RED CELL DISTRIBUTION WIDTH 13.4 % (11.5-14.0); WHITE BLOOD COUNT 13.7 10^3/uL (4.0-10.5)
[2017-01-05 19:04] LABS: ANION GAP 11 (5-19); BLOOD UREA NITROGEN 20 mg/dL (7-20); CALCIUM 8.4 mg/dL (8.4-10.2); CARBON DIOXIDE 20 mmol/L (22-30); CHLORIDE 107 mmol/L (98-107); CREATININE RESULT 1.25 mg/dL (0.52-1.25); GLUCOSE 291 mg/dL (75-110); SODIUM 138.1 mmol/L (137-145)
[2017-01-05] MEDS: ATORVASTATIN CALCIUM 80 MG TABLET PO SCH (21:56)
[2017-01-05] MEDS: RIVAROXABAN 10 MG TABLET PO SCH (21:56)
[2017-01-06] MEDS: LANSOPRAZOLE 30 MG TAB.RAP.DR PO SCH (05:28)
[2017-01-06 05:46] LABS: HEMATOCRIT 39.8 % (37.9-51.0); HEMOGLOBIN 13.4 g/dL (13.5-17.0); HGB HCT DIFFERENCE 0.4; MEAN CORPUSCULAR HEMOGLOBIN 32.1 pg (27.0-33.4); MEAN CORPUSCULAR HGB CONC 33.7 g/dL (32.0-36.0); MEAN CORPUSCULAR VOLUME 95 fl (80-97); RED BLOOD COUNT 4.18 10^6/uL (4.35-5.55); WHITE BLOOD COUNT 14.8 10^3/uL (4.0-10.5)
[2017-01-06 05:54] LABS: ANION GAP 16 (5-19); BLOOD UREA NITROGEN 20 mg/dL (7-20); CALCIUM 8.7 mg/dL (8.4-10.2); CARBON DIOXIDE 19 mmol/L (22-30); CHLORIDE 107 mmol/L (98-107); CREATININE RESULT 1.25 mg/dL (0.52-1.25); GLUCOSE 312 mg/dL (75-110); SODIUM 141.7 mmol/L (137-145)
[2017-01-06] MEDS: GLIMEPIRIDE 4 MG TABLET PO SCH ×2 (09:00→15:46)
[2017-01-06] MEDS: BENAZEPRIL HCL 20 MG TABLET PO SCH (10:42)
[2017-01-06] MEDS: PRENATAL VITAMIN W-O CA NO5/FE FUMARATE/FA CAPSULE PO SCH (10:43)
[2017-01-06] MEDS: METOPROLOL TARTRATE 25 MG TABLET PO SCH ×2 (10:43→21:58)
[2017-01-06] MEDS: DIAZEPAM 2 MG TABLET PO SCH (10:43)
[2017-01-06] MEDS: SENNOSIDES/DOCUSATE 8.6-50 MG 1 EACH TABLET PO SCH ×2 (10:43→17:19)
--- NOTE | 2017-01-06 16:28 | PDOC PROGRESS REPORT ---
Subjective Progress Note for:: 01/06/17 Subjective:: Patient seen on morning rounds. He is much calmer, with less confusion than yesterday. Presently he is oriented to time and place. He has no recall of yesterday's events. He denies significant pain in the left knee. Nursing reports no issues overnight. He denies any shortness of breath or dyspnea. He denies any nausea, vomiting or abdominal pain. Physical Exam Vital Signs: Temp Pulse Resp BP Pulse Ox 98.8 F 76 18 123/87 H 93 01/06/17 12:00 01/06/17 12:00 01/06/17 12:00 01/06/17 12:00 01/06/17 12:00 Intake & Output 01/05/17 01/06/17 01/07/17 06:59 06:59 06:59 Intake Total 1290 48990 0 Output Total 50 0 Balance 1240 63496 0 Weight 111.1 kg 111.5 kg General appearance: PRESENT: no acute distress, obese, well-developed, well- nourished Head exam: PRESENT: atraumatic, normocephalic Eye exam: PRESENT: conjunctiva pink, EOMI, PERRLA. ABSENT: scleral icterus Ear exam: PRESENT: normal external ear exam Mouth exam: PRESENT: moist, tongue midline Neck exam: ABSENT: carotid bruit, JVD, lymphadenopathy, thyromegaly Respiratory exam: PRESENT: clear to auscultation josi. ABSENT: rales, rhonchi, wheezes Cardiovascular exam: PRESENT: RRR. ABSENT: diastolic murmur, rubs, systolic murmur Pulses: PRESENT: normal dorsalis pedis pul GI/Abdominal exam: PRESENT: normal bowel sounds, soft. ABSENT: distended, guarding, mass, organolmegaly, rebound, tenderness Rectal exam: PRESENT: deferred Extremities exam: PRESENT: full ROM. ABSENT: calf tenderness, clubbing, pedal edema Neurological exam: PRESENT: alert, awake, oriented to person, oriented to place , oriented to time, oriented to situation, CN II-XII grossly intact. ABSENT: motor sensory deficit Psychiatric exam: PRESENT: appropriate affect, normal mood. ABSENT: homicidal ideation, suicidal ideation Skin exam: PRESENT: dry, intact, warm. ABSENT: cyanosis, rash Results Laboratory Results: 01/06/17 05:09 01/06/17 05:09 01/05/17 01/05/17 01/06/17 18:30 18:30 05:09 WBC 13.7 H 14.8 H RBC 4.08 L 4.18 L Hgb 12.9 L 13.4 L Hct 38.4 39.8 MCV 94 95 MCH 31.5 32.1 MCHC 33.4 33.7 RDW 13.4 13.0 Plt Count 154 180 Sodium 138.1 Potassium 4.0 Chloride 107 Carbon Dioxide 20 L Anion Gap 11 BUN 20 Creatinine 1.25 Est GFR ( Amer) > 60 Est GFR (Non-Af Amer) 58 L Glucose 291 H Calcium 8.4 01/06/17 05:09 WBC RBC Hgb Hct MCV MCH MCHC RDW Plt Count Sodium 141.7 Potassium 4.0 Chloride 107 Carbon Dioxide 19 L Anion Gap 16 BUN 20 Creatinine 1.25 Est GFR ( Amer) > 60 Est GFR (Non-Af Amer) 58 L Glucose 312 H Calcium 8.7 Impressions: Knee X-Ray 01/03/17 09:55 IMPRESSION: SATISFACTORY POSTOPERATIVE LEFT KNEE. Assessment & Plan - Diagnosis (1) Altered mental status Is this a current diagnosis for this admission?: YesPlan: Most likely secondary to narcotic analgesics. Will hold for now. Haldol prn for agitation. Will CT head tomorrow if no improvement. Patient with no periods of confusion preoperatively according to . Patient had left bea infarct in September with mild residual right extremity weakness, no cognitive dysfunction according to spouse. (2) Total knee replacement status Qualifiers: Laterality: left Qualified Code(s): Z96.652 - Presence of left artificial knee joint (3) Diabetes Qualifiers: Diabetes mellitus type: type 2 Diabetes mellitus complication status: with unspecified complications Diabetes mellitus terminal manager insulin use: with half-way use Qualified Code(s): E11.8 - Type 2 diabetes mellitus with unspecified complications; Z79.4 - senior living (current) use of insulin Is this a current diagnosis for this admission?: YesPlan: Continue current insulin therapy with sliding scale coverage. Patient has not had long acting insulin in the last 2 days. Will add lantus. (4) Atrial fibrillation Qualifiers: Atrial fibrillation type: persistent Qualified Code(s): I48.1 - Persistent atrial fibrillation Plan: Rate controlled on xarelto (5) Hypertension Qualifiers: Hypertension type: essential hypertension Qualified Code(s): I10 - Essential (primary) hypertension Plan: Patient had period of mild hypotension with systolic BP in the 80's this am. Hold antihypertensives for BP < 100mmHg (6) Stroke Qualifiers: CVA mechanism: unspecified Qualified Code(s): I63.9 - Cerebral infarction, unspecified Is this a current diagnosis for this admission?: YesPlan: Continue xarelto, statin. No new deficits. - Time Time Spent with patient: 25-34 minutes Critical Time spent with patient: 15-24 minutes Anticipated discharge: Acute Rehab
[2017-01-06] MEDS: ATORVASTATIN CALCIUM 80 MG TABLET PO SCH (21:58)
[2017-01-06] MEDS: RIVAROXABAN 10 MG TABLET PO SCH (21:58)
[2017-01-06] MEDS ORDERED: INSULIN GLARGINE,HUM.REC.ANLOG 300 UNIT/3 ML INSULN.PEN SUBCUT SCH (22:00)
[2017-01-07 06:02] LABS: ABSOLUTE BASOPHILS # (AUTO) 0.1 10^3/uL (0.0-0.2); ABSOLUTE EOSINOPHILS # (AUTO) 0.1 10^3/uL (0.0-0.6); ABSOLUTE LYMPHOCYTES (AUTO) 1.6 10^3/uL (0.5-4.7); ABSOLUTE NEUT (AUTO) 9.7 10^3/uL (1.7-8.2); BASOPHILS % (AUTO) 1.1 % (0-2); EOSINOPHILS % (AUTO) 0.7 % (0-6); HEMATOCRIT 36.1 % (37.9-51.0); HGB HCT DIFFERENCE -0.1; LYMPHOCYTES % (AUTO) 12.7 % (13-45); MEAN CORPUSCULAR HEMOGLOBIN 31.8 pg (27.0-33.4); MEAN CORPUSCULAR HGB CONC 33.4 g/dL (32.0-36.0); MEAN CORPUSCULAR VOLUME 95 fl (80-97); MONOCYTES % (AUTO) 8.3 % (3-13); RED BLOOD COUNT 3.79 10^6/uL (4.35-5.55); RED CELL DISTRIBUTION WIDTH 13.1 % (11.5-14.0); SEGMENTED NEUTROPHILS % (AUTO) 77.2 % (42-78); WHITE BLOOD COUNT 12.6 10^3/uL (4.0-10.5)
[2017-01-07] MEDS: LANSOPRAZOLE 30 MG TAB.RAP.DR PO SCH (06:21)
--- NOTE | 2017-01-07 06:27 | PDOC PROGRESS REPORT ---
Subjective Progress Note for:: 01/07/17 Subjective:: Patient much clearer mentally today. He is asking when he can go home Physical Exam Vital Signs: Temp Pulse Resp BP Pulse Ox 37.1 C 84 25 H 152/79 H 92 01/06/17 23:38 01/06/17 23:38 01/06/17 23:38 01/06/17 23:38 01/06/17 23:38 Intake & Output 01/05/17 01/06/17 01/07/17 06:59 06:59 06:59 Intake Total 1290 92605 300 Output Total 50 0 300 Balance 1240 43291 0 Weight 111.1 kg 111.5 kg General appearance: PRESENT: no acute distress Head exam: PRESENT: normocephalic Respiratory exam: PRESENT: unlabored Cardiovascular exam: PRESENT: RRR Pulses: PRESENT: +1 pedal pulses bilateral Vascular exam: PRESENT: normal capillary refill GI/Abdominal exam: PRESENT: soft Rectal exam: PRESENT: deferred Extremities exam: PRESENT: other - Knee picot dressing clean dry and intact. There is some surrounding edema and may be even slight erythema. There is mild pedal edema. Neurological exam: PRESENT: alert, awake, oriented to person, oriented to place , oriented to time, oriented to situation. ABSENT: motor sensory deficit Psychiatric exam: PRESENT: appropriate affect, normal mood. ABSENT: homicidal ideation, suicidal ideation Skin exam: PRESENT: dry, intact, warm. ABSENT: cyanosis, rash Results Laboratory Results: 01/07/17 05:34 01/07/17 05:34 WBC 12.6 H RBC 3.79 L Hgb 12.0 L Hct 36.1 L MCV 95 MCH 31.8 MCHC 33.4 RDW 13.1 Plt Count 205 Seg Neutrophils % 77.2 Lymphocytes % 12.7 L Monocytes % 8.3 Eosinophils % 0.7 Basophils % 1.1 Absolute Neutrophils 9.7 H Absolute Lymphocytes 1.6 Absolute Monocytes 1.0 Absolute Eosinophils 0.1 Absolute Basophils 0.1 Impressions: Knee X-Ray 01/03/17 09:55 IMPRESSION: SATISFACTORY POSTOPERATIVE LEFT KNEE. Status: Imported from PACS Assessment & Plan - Diagnosis (1) Arthritis of knee, right Is this a current diagnosis for this admission?: YesPlan: 66-year-old white male status post left knee arthroplasty with postoperative mental status changes presumably secondary to medication. Medication has been stopped and his mental status is clearing. At this point we can focus on physical therapy for weightbearing as tolerated ambulation. Patient can be discharged home soon as his functional condition permits. - Time Time Spent with patient: 15-24 minutes Anticipated discharge: Home with Homehealth Within: Other
[2017-01-07 06:35] LABS: ANION GAP 12 (5-19); BLOOD UREA NITROGEN 18 mg/dL (7-20); CALCIUM 8.6 mg/dL (8.4-10.2); CARBON DIOXIDE 23 mmol/L (22-30); CHLORIDE 109 mmol/L (98-107); CREATININE RESULT 0.84 mg/dL (0.52-1.25); GLUCOSE 225 mg/dL (75-110); POTASSIUM 3.6 mmol/L (3.6-5.0); SODIUM 143.7 mmol/L (137-145)
[2017-01-07] MEDS: GLIMEPIRIDE 4 MG TABLET PO SCH ×2 (08:06→16:34)
[2017-01-07] MEDS: BENAZEPRIL HCL 20 MG TABLET PO SCH (09:39)
[2017-01-07] MEDS: PRENATAL VITAMIN W-O CA NO5/FE FUMARATE/FA CAPSULE PO SCH (09:39)
[2017-01-07] MEDS: SENNOSIDES/DOCUSATE 8.6-50 MG 1 EACH TABLET PO SCH ×2 (09:40→17:36)
[2017-01-07] MEDS: ACETAMINOPHEN 325 MG TABLET PO PRN ×2 (09:40→20:09)
[2017-01-07] MEDS: METOPROLOL TARTRATE 25 MG TABLET PO SCH ×2 (09:40→21:49)
[2017-01-07] MEDS: DIAZEPAM 2 MG TABLET PO SCH (09:42)
--- NOTE | 2017-01-07 12:40 | PDOC PROGRESS REPORT ---
Subjective Progress Note for:: 01/07/17 Subjective:: Patient seen on morning rounds. He is awake and alert. Presently he is oriented to time and place. He had no confusion overnight. He denies significant pain in the left knee. Nursing reports no issues overnight. He denies any shortness of breath or dyspnea. He denies any nausea, vomiting or abdominal pain. Rest of the review of systems is negative. Physical Exam Vital Signs: Temp Pulse Resp BP Pulse Ox 98.2 F 94 18 135/83 H 92 01/07/17 09:00 01/07/17 09:00 01/07/17 09:00 01/07/17 09:00 01/07/17 09:00 Intake & Output 01/06/17 01/07/17 01/08/17 06:59 06:59 06:59 Intake Total 23599 840 0 Output Total 0 475 Balance 99566 365 0 Weight 111.5 kg General appearance: PRESENT: no acute distress, obese, well-developed, well- nourished Head exam: PRESENT: atraumatic, normocephalic Eye exam: PRESENT: conjunctiva pink, EOMI, PERRLA. ABSENT: scleral icterus Ear exam: PRESENT: normal external ear exam Mouth exam: PRESENT: moist, tongue midline Neck exam: ABSENT: carotid bruit, JVD, lymphadenopathy, thyromegaly Respiratory exam: PRESENT: clear to auscultation josi. ABSENT: rales, rhonchi, wheezes Cardiovascular exam: PRESENT: RRR. ABSENT: diastolic murmur, rubs, systolic murmur Pulses: PRESENT: normal dorsalis pedis pul Vascular exam: PRESENT: normal capillary refill GI/Abdominal exam: PRESENT: normal bowel sounds, soft. ABSENT: distended, guarding, mass, organolmegaly, rebound, tenderness Rectal exam: PRESENT: deferred Extremities exam: PRESENT: full ROM, tenderness - left anterior knee incision. ABSENT: calf tenderness, clubbing, pedal edema Neurological exam: PRESENT: alert, awake, oriented to person, oriented to place , oriented to time, oriented to situation, CN II-XII grossly intact. ABSENT: motor sensory deficit Psychiatric exam: PRESENT: appropriate affect, normal mood. ABSENT: homicidal ideation, suicidal ideation Skin exam: PRESENT: dry, intact, warm. ABSENT: cyanosis, rash Results Laboratory Results: 01/07/17 05:34 01/07/17 05:34 01/07/17 01/07/17 05:34 05:34 WBC 12.6 H RBC 3.79 L Hgb 12.0 L Hct 36.1 L MCV 95 MCH 31.8 MCHC 33.4 RDW 13.1 Plt Count 205 Seg Neutrophils % 77.2 Lymphocytes % 12.7 L Monocytes % 8.3 Eosinophils % 0.7 Basophils % 1.1 Absolute Neutrophils 9.7 H Absolute Lymphocytes 1.6 Absolute Monocytes 1.0 Absolute Eosinophils 0.1 Absolute Basophils 0.1 Sodium 143.7 Potassium 3.6 Chloride 109 H Carbon Dioxide 23 Anion Gap 12 BUN 18 Creatinine 0.84 Est GFR ( Amer) > 60 Est GFR (Non-Af Amer) > 60 Glucose 225 H Calcium 8.6 Impressions: Knee X-Ray 01/03/17 09:55 IMPRESSION: SATISFACTORY POSTOPERATIVE LEFT KNEE. Assessment & Plan - Diagnosis (1) Altered mental status Is this a current diagnosis for this admission?: YesPlan: Resolved. Likely secondary to narcotic analgesics and hypotensive episode. He has had a recent left bea cerebral infarct, September,, with small vessel disease on last MRI (2) Total knee replacement status Qualifiers: Laterality: left Qualified Code(s): Z96.652 - Presence of left artificial knee joint Plan: Management per orthopedic surgery. Patient has been able to participate in physical therapy the last 2 days (3) Diabetes Qualifiers: Diabetes mellitus type: type 2 Diabetes mellitus complication status: with unspecified complications Diabetes mellitus sas programmer remote insulin use: with detention use Qualified Code(s): E11.8 - Type 2 diabetes mellitus with unspecified complications; Z79.4 - [facility] (current) use of insulin Is this a current diagnosis for this admission?: YesPlan: Continue current insulin therapy with sliding scale coverage. Patient has not had long acting insulin in the last 2 days. Will add lantus. (4) Atrial fibrillation Qualifiers: Atrial fibrillation type: persistent Qualified Code(s): I48.1 - Persistent atrial fibrillation Plan: Rate controlled on xarelto (5) Hypertension Qualifiers: Hypertension type: essential hypertension Qualified Code(s): I10 - Essential (primary) hypertension Plan: Patient had period of mild hypotension with systolic BP in the 80's this am. Hold antihypertensives for BP < 100mmHg (6) Stroke Qualifiers: CVA mechanism: unspecified Qualified Code(s): I63.9 - Cerebral infarction, unspecified Is this a current diagnosis for this admission?: YesPlan: Continue xarelto, statin. No new deficits. - Time Time Spent with patient: 25-34 minutes Critical Time spent with patient: 15-24 minutes Medications reviewed and adjusted accordingly: Yes - Inpatient Certification Based on my medical assessment, after consideration of the patient's comorbidities, presenting symptoms, or acuity I expect that the services needed warrant INPATIENT care.: Yes I certify that my determination is in accordance with my understanding of Medicare's requirements for reasonable and necessary INPATIENT services [42 CFR 412.3e].: Yes
[2017-01-07] MEDS: ATORVASTATIN CALCIUM 80 MG TABLET PO SCH (21:49)
[2017-01-07] MEDS: RIVAROXABAN 10 MG TABLET PO SCH (21:50)
[2017-01-07] MEDS ORDERED: INSULIN GLARGINE,HUM.REC.ANLOG 300 UNIT/3 ML INSULN.PEN SUBCUT SCH (22:00)
[2017-01-08] MEDS: LANSOPRAZOLE 30 MG TAB.RAP.DR PO SCH (06:19)
--- NOTE | 2017-01-08 06:53 | PDOC PROGRESS REPORT ---
Subjective Progress Note for:: 01/08/17 Subjective:: Mental status continues to clear Physical Exam Vital Signs: Temp Pulse Resp BP Pulse Ox 36.8 C 65 18 143/83 H 92 01/08/17 00:00 01/08/17 00:00 01/08/17 00:00 01/08/17 00:00 01/08/17 00:00 Intake & Output 01/06/17 01/07/17 01/08/17 06:59 06:59 06:59 Intake Total 84238 840 690 Output Total 0 475 1150 Balance 17030 365 -460 Weight 111.5 kg 112.6 kg General appearance: PRESENT: no acute distress Head exam: PRESENT: normocephalic Respiratory exam: PRESENT: unlabored Cardiovascular exam: PRESENT: RRR Vascular exam: PRESENT: normal capillary refill GI/Abdominal exam: PRESENT: soft Rectal exam: PRESENT: deferred Extremities exam: PRESENT: other - Left lower extremity dressing remains clean dry and intact. Induration and erythema seem to be resolving. Distal neurovascular examination is intact. Results Laboratory Results: 01/07/17 05:34 01/07/17 05:34 Impressions: Knee X-Ray 01/03/17 09:55 IMPRESSION: SATISFACTORY POSTOPERATIVE LEFT KNEE. Assessment & Plan - Diagnosis (1) Arthritis of knee, right Is this a current diagnosis for this admission?: YesPlan: Status continues to clear but the patient has made minimal progress with physical therapy today. Hopefully as his mental status continues to clear and his pain is under better control he can make more significant progress in terms of ambulation. - Time Time Spent with patient: 15-24 minutes
[2017-01-08] MEDS: GLIMEPIRIDE 4 MG TABLET PO SCH ×2 (07:23→17:09)
[2017-01-08] MEDS: ACETAMINOPHEN 325 MG TABLET PO PRN ×2 (08:20→14:31)
[2017-01-08] MEDS: SENNOSIDES/DOCUSATE 8.6-50 MG 1 EACH TABLET PO SCH ×2 (10:02→17:09)
[2017-01-08] MEDS: METOPROLOL TARTRATE 25 MG TABLET PO SCH ×2 (10:02→21:51)
[2017-01-08] MEDS: PRENATAL VITAMIN W-O CA NO5/FE FUMARATE/FA CAPSULE PO SCH (10:02)
[2017-01-08] MEDS: DIAZEPAM 2 MG TABLET PO SCH (10:03)
[2017-01-08] MEDS: BENAZEPRIL HCL 20 MG TABLET PO SCH (10:03)
--- NOTE | 2017-01-08 11:56 | PDOC PROGRESS REPORT ---
Subjective Progress Note for:: 01/08/17 Subjective:: Patient seen on morning rounds. He is awake and alert. Presently he is oriented to time and place. He had no confusion overnight. He denies significant pain in the left knee. He did much better with physical therapy today than he did yesterday. He was able to walk out in the hallway. He states tylenol is taking care of his left knee pain. Nursing reports no issues overnight. He denies any shortness of breath or dyspnea. He denies any nausea, vomiting or abdominal pain. Rest of the review of systems is negative. Physical Exam Vital Signs: Temp Pulse Resp BP Pulse Ox 98.2 F 80 16 147/81 H 92 01/08/17 07:25 01/08/17 07:25 01/08/17 07:25 01/08/17 07:25 01/08/17 07:25 Intake & Output 01/07/17 01/08/17 01/09/17 06:59 06:59 06:59 Intake Total 840 690 Output Total 475 1150 Balance 365 -460 Weight 112.6 kg General appearance: PRESENT: no acute distress, obese, well-developed, well- nourished Head exam: PRESENT: atraumatic, normocephalic Eye exam: PRESENT: conjunctiva pink, EOMI, PERRLA. ABSENT: scleral icterus Ear exam: PRESENT: normal external ear exam Mouth exam: PRESENT: moist, tongue midline Neck exam: ABSENT: carotid bruit, JVD, lymphadenopathy, thyromegaly Respiratory exam: PRESENT: clear to auscultation josi, symmetrical, unlabored. ABSENT: rales, rhonchi, wheezes Cardiovascular exam: PRESENT: RRR. ABSENT: diastolic murmur, rubs, systolic murmur Pulses: PRESENT: normal dorsalis pedis pul GI/Abdominal exam: PRESENT: normal bowel sounds, soft. ABSENT: distended, guarding, mass, organolmegaly, rebound, tenderness Rectal exam: PRESENT: deferred Extremities exam: PRESENT: full ROM. ABSENT: calf tenderness, clubbing, pedal edema Musculoskeletal exam: PRESENT: tenderness - left knee at incision Results Laboratory Results: 01/07/17 05:34 01/07/17 05:34 Impressions: Knee X-Ray 01/03/17 09:55 IMPRESSION: SATISFACTORY POSTOPERATIVE LEFT KNEE. 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
[2017-01-08] MEDS ORDERED: DEXTROSE 40% GEL 15 GM TUBE PO PRN ×2 (13:24)
[2017-01-08] MEDS ORDERED: GLUCAGON,HUMAN RECOMB 1 MG INJ IM PRN (13:24)
[2017-01-08] MEDS ORDERED: DEXTROSE 50%-WATER 25 GM/50 ML DISP.SYRIN IV PRN ×2 (13:24)
[2017-01-08] MEDS: INSULIN LISPRO 100 UNIT/ML 3 ML VIAL SUBCUT PRN ×3 (13:37→21:48)
[2017-01-08] MEDS: ATORVASTATIN CALCIUM 80 MG TABLET PO SCH (21:51)
[2017-01-08] MEDS: RIVAROXABAN 10 MG TABLET PO SCH (21:52)
[2017-01-08] MEDS ORDERED: INSULIN GLARGINE,HUM.REC.ANLOG 300 UNIT/3 ML INSULN.PEN SUBCUT SCH (22:00)
[2017-01-09] MEDS: ACETAMINOPHEN 325 MG TABLET PO PRN ×2 (04:55→08:54)
[2017-01-09] MEDS: LANSOPRAZOLE 30 MG TAB.RAP.DR PO SCH (05:00)
[2017-01-09] MEDS ORDERED: INSULIN GLARGINE,HUM.REC.ANLOG 300 UNIT/3 ML INSULN.PEN SUBCUT SCH (07:30)
[2017-01-09] MEDS: GLIMEPIRIDE 4 MG TABLET PO SCH ×2 (07:43→16:29)
--- NOTE | 2017-01-09 08:15 | PDOC PROGRESS REPORT ---
Subjective Progress Note for:: 01/09/17 Subjective:: Seen and evaluated on rounds this morning. Currently lying in bed comfortably. Denies pain or discomfort. Has stopped the use of antibiotics and using Tylenol for discomfort. Denies chest pain or shortness of breath. Physical Exam Vital Signs: Temp Pulse Resp BP Pulse Ox 97.7 F 51 L 20 162/94 H 95 01/09/17 07:22 01/09/17 07:22 01/09/17 07:22 01/09/17 07:22 01/09/17 07:22 Intake & Output 01/08/17 01/09/17 01/10/17 06:59 06:59 06:59 Intake Total 690 936 Output Total 1150 1575 Balance -460 -639 Weight 112.6 kg 111.6 kg Musculoskeletal exam: PRESENT: other - Left knee: Dressing clean/dry/intact no erythema or drainage. Intact plantar flexion/dorsiflexion. No calf tenderness. Negative Homans. No sensory deficits. Results Laboratory Results: 01/07/17 05:34 01/07/17 05:34 Impressions: Knee X-Ray 01/03/17 09:55 IMPRESSION: SATISFACTORY POSTOPERATIVE LEFT KNEE. Assessment & Plan - Diagnosis (1) Total knee replacement status Qualifiers: Laterality: left Qualified Code(s): Z96.652 - Presence of left artificial knee joint Is this a current diagnosis for this admission?: YesPlan: Status post left total knee arthroplasty. #1 physical therapy patient continued to show some improvement but does require more extensive therapy prior to discharge #2 Xarelto for DVT prophylaxis #3 discharge planning patient may require half-way facility according to physical therapy recommendations although he is showing improvement since his mental status has continued to improve.
[2017-01-09] MEDS: INSULIN LISPRO 100 UNIT/ML 3 ML VIAL SUBCUT PRN ×4 (08:44→21:33)
[2017-01-09] MEDS: PRENATAL VITAMIN W-O CA NO5/FE FUMARATE/FA CAPSULE PO SCH (09:24)
[2017-01-09] MEDS: BENAZEPRIL HCL 20 MG TABLET PO SCH (09:24)
[2017-01-09] MEDS: DIAZEPAM 2 MG TABLET PO SCH (09:25)
[2017-01-09] MEDS: SENNOSIDES/DOCUSATE 8.6-50 MG 1 EACH TABLET PO SCH ×2 (09:25→17:48)
[2017-01-09] MEDS: METOPROLOL TARTRATE 25 MG TABLET PO SCH ×2 (09:25→21:32)
--- NOTE | 2017-01-09 11:41 | PDOC PROGRESS REPORT ---
Subjective Progress Note for:: 01/09/17 Subjective:: Patient seen on morning rounds. He is awake and alert. Presently he is oriented to time and place. He walked again with PT, they feel he may need rehab placement. Patient thinks he will be able to go home with home physical therapy. He is having moderate pain in the left knee. Tylenol is helping some with the pain. Nursing reports no issues overnight. He denies any shortness of breath or dyspnea. He denies any nausea, vomiting or abdominal pain. Rest of the review of systems is negative. Physical Exam Vital Signs: Temp Pulse Resp BP Pulse Ox 97.7 F 51 L 20 162/94 H 95 01/09/17 07:22 01/09/17 07:22 01/09/17 07:22 01/09/17 07:22 01/09/17 07:22 Intake & Output 01/08/17 01/09/17 01/10/17 06:59 06:59 06:59 Intake Total 690 936 Output Total 1150 1575 Balance -460 -639 Weight 112.6 kg 111.6 kg General appearance: PRESENT: no acute distress, obese, well-developed, well- nourished Head exam: PRESENT: atraumatic, normocephalic Eye exam: PRESENT: conjunctiva pink, EOMI, PERRLA. ABSENT: scleral icterus Ear exam: PRESENT: normal external ear exam Mouth exam: PRESENT: moist, tongue midline Neck exam: ABSENT: carotid bruit, JVD, lymphadenopathy, thyromegaly Respiratory exam: PRESENT: clear to auscultation josi. ABSENT: rales, rhonchi, wheezes Cardiovascular exam: PRESENT: RRR. ABSENT: diastolic murmur, rubs, systolic murmur Pulses: PRESENT: normal dorsalis pedis pul Vascular exam: PRESENT: normal capillary refill GI/Abdominal exam: PRESENT: normal bowel sounds, soft. ABSENT: distended, guarding, mass, organolmegaly, rebound, tenderness Rectal exam: PRESENT: deferred Extremities exam: PRESENT: full ROM, tenderness - left anterior knee Neurological exam: PRESENT: alert, awake, oriented to person, oriented to place , oriented to time, oriented to situation, CN II-XII grossly intact. ABSENT: motor sensory deficit Psychiatric exam: PRESENT: appropriate affect, normal mood. ABSENT: homicidal ideation, suicidal ideation Skin exam: PRESENT: dry, intact, warm, other - left knee incision without drainage. ABSENT: cyanosis, rash Results Laboratory Results: 01/07/17 05:34 01/07/17 05:34 Impressions: Knee X-Ray 01/03/17 09:55 IMPRESSION: SATISFACTORY POSTOPERATIVE LEFT KNEE. 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 Will increase lantus to 45 units today due to chemstrips being in 200s (2) Altered mental status Is this a current diagnosis for this admission?: YesPlan: Resolved. Secondary to narcotic analgesics (3) Total knee replacement status Qualifiers: Laterality: left Qualified Code(s): Z96.652 - Presence of left artificial knee joint Is this a current diagnosis for this admission?: YesPlan: Management per orthopedic surgery. Patient has been able to participate in physical therapy the last 2 days (4) Atrial fibrillation Qualifiers: Atrial fibrillation type: persistent Qualified Code(s): I48.1 - Persistent atrial fibrillation Plan: Rate controlled on xarelto (5) Hypertension Qualifiers: Hypertension type: essential hypertension Qualified Code(s): I10 - Essential (primary) hypertension Plan: Patient had period of mild hypotension with systolic BP in the 80's this am. Hold antihypertensives for BP < 100mmHg (6) Stroke Qualifiers: CVA mechanism: unspecified Qualified Code(s): I63.9 - Cerebral infarction, unspecified Is this a current diagnosis for this admission?: YesPlan: Continue xarelto, statin. No new deficits. - Time Time Spent with patient: 25-34 minutes Critical Time spent with patient: 15-24 minutes Medications reviewed and adjusted accordingly: Yes
[2017-01-09] MEDS: IBUPROFEN 600 MG TABLET PO SCH ×2 (11:44→17:46)
[2017-01-09] MEDS: RIVAROXABAN 10 MG TABLET PO SCH (21:32)
[2017-01-09] MEDS: ATORVASTATIN CALCIUM 80 MG TABLET PO SCH (21:32)
[2017-01-09] MEDS: INSULIN GLARGINE,HUM.REC.ANLOG 300 UNIT/3 ML INSULN.PEN SUBCUT SCH (21:33)
[2017-01-10] MEDS: LANSOPRAZOLE 30 MG TAB.RAP.DR PO SCH (05:47)
[2017-01-10] MEDS: IBUPROFEN 600 MG TABLET PO SCH ×3 (08:25→17:52)
[2017-01-10] MEDS: INSULIN LISPRO 100 UNIT/ML 3 ML VIAL SUBCUT PRN ×3 (08:25→21:19)
[2017-01-10] MEDS: GLIMEPIRIDE 4 MG TABLET PO SCH ×2 (08:25→17:52)
[2017-01-10 09:13] LABS: ABSOLUTE BASOPHILS # (AUTO) 0.1 10^3/uL (0.0-0.2); ABSOLUTE EOSINOPHILS # (AUTO) 0.2 10^3/uL (0.0-0.6); ABSOLUTE LYMPHOCYTES (AUTO) 1.6 10^3/uL (0.5-4.7); ABSOLUTE MONOCYTES (AUTO) 0.7 10^3/uL (0.1-1.4); ABSOLUTE NEUT (AUTO) 8.2 10^3/uL (1.7-8.2); BASOPHILS % (AUTO) 0.8 % (0-2); EOSINOPHILS % (AUTO) 1.8 % (0-6); HEMATOCRIT 40.6 % (37.9-51.0); HEMOGLOBIN 13.5 g/dL (13.5-17.0); HGB HCT DIFFERENCE -0.1; LYMPHOCYTES % (AUTO) 14.6 % (13-45); MEAN CORPUSCULAR HEMOGLOBIN 31.9 pg (27.0-33.4); MEAN CORPUSCULAR HGB CONC 33.4 g/dL (32.0-36.0); MEAN CORPUSCULAR VOLUME 96 fl (80-97); MONOCYTES % (AUTO) 6.3 % (3-13); RED BLOOD COUNT 4.25 10^6/uL (4.35-5.55); RED CELL DISTRIBUTION WIDTH 13.2 % (11.5-14.0); SEGMENTED NEUTROPHILS % (AUTO) 76.5 % (42-78); WHITE BLOOD COUNT 10.7 10^3/uL (4.0-10.5)
[2017-01-10 09:26] LABS: ANION GAP 9 (5-19); BLOOD UREA NITROGEN 15 mg/dL (7-20); CALCIUM 8.6 mg/dL (8.4-10.2); CARBON DIOXIDE 31 mmol/L (22-30); CHLORIDE 100 mmol/L (98-107); CREATININE RESULT 0.68 mg/dL (0.52-1.25); GLUCOSE 179 mg/dL (75-110); POTASSIUM 3.3 mmol/L (3.6-5.0); SODIUM 140.4 mmol/L (137-145)
[2017-01-10] MEDS: BENAZEPRIL HCL 20 MG TABLET PO SCH (09:42)
[2017-01-10] MEDS: METOPROLOL TARTRATE 25 MG TABLET PO SCH ×2 (09:42→21:19)
[2017-01-10] MEDS: PRENATAL VITAMIN W-O CA NO5/FE FUMARATE/FA CAPSULE PO SCH (09:43)
[2017-01-10] MEDS: SENNOSIDES/DOCUSATE 8.6-50 MG 1 EACH TABLET PO SCH ×2 (09:43→17:52)
[2017-01-10] MEDS: POTASSIUM CHLORIDE 10 MEQ TABLET.SA PO SCH ×2 (10:51→21:19)
--- NOTE | 2017-01-10 15:55 | PDOC PROGRESS REPORT ---
Subjective Progress Note for:: 01/10/17 Subjective:: Patient seen on morning rounds. He is awake and alert. Presently he is oriented to time and place. He walked again with PT, they feel he may need rehab placement. Patient thinks he will be able to go home with home physical therapy. He is having moderate pain in the left knee. Tylenol is helping some with the pain. Nursing reports no issues overnight. He denies any shortness of breath or dyspnea. He denies any nausea, vomiting or abdominal pain. Rest of the review of systems is negative. Physical Exam Vital Signs: Temp Pulse Resp BP Pulse Ox 98.2 F 74 16 135/67 H 94 01/10/17 11:00 01/10/17 11:00 01/10/17 11:00 01/10/17 11:00 01/10/17 11:00 Intake & Output 01/09/17 01/10/17 01/11/17 06:59 06:59 06:59 Intake Total 936 1305 Output Total 1575 850 Balance -639 455 Weight 111.6 kg 114.9 kg General appearance: PRESENT: no acute distress, obese, well-developed, well- nourished Head exam: PRESENT: atraumatic, normocephalic Eye exam: PRESENT: conjunctiva pink, EOMI, PERRLA. ABSENT: scleral icterus Ear exam: PRESENT: normal external ear exam Mouth exam: PRESENT: moist, tongue midline Teeth exam: PRESENT: edentulous Neck exam: ABSENT: carotid bruit, JVD, lymphadenopathy, thyromegaly Respiratory exam: PRESENT: clear to auscultation josi. ABSENT: rales, rhonchi, wheezes Cardiovascular exam: PRESENT: RRR. ABSENT: diastolic murmur, rubs, systolic murmur Pulses: PRESENT: normal dorsalis pedis pul Vascular exam: PRESENT: normal capillary refill GI/Abdominal exam: PRESENT: normal bowel sounds, soft. ABSENT: distended, guarding, mass, organolmegaly, rebound, tenderness Rectal exam: PRESENT: deferred Extremities exam: PRESENT: full ROM, tenderness - left knee. ABSENT: calf tenderness, clubbing, pedal edema Musculoskeletal exam: PRESENT: ambulatory, full ROM Neurological exam: PRESENT: alert, awake, oriented to person, oriented to place , oriented to time, oriented to situation, CN II-XII grossly intact. ABSENT: motor sensory deficit Psychiatric exam: PRESENT: appropriate affect, normal mood. ABSENT: homicidal ideation, suicidal ideation Skin exam: PRESENT: dry, intact, warm. ABSENT: cyanosis, rash Results Laboratory Results: 01/10/17 08:19 01/10/17 08:19 01/10/17 01/10/17 08:19 08:19 WBC 10.7 H RBC 4.25 L Hgb 13.5 Hct 40.6 MCV 96 MCH 31.9 MCHC 33.4 RDW 13.2 Plt Count 278 Seg Neutrophils % 76.5 Lymphocytes % 14.6 Monocytes % 6.3 Eosinophils % 1.8 Basophils % 0.8 Absolute Neutrophils 8.2 Absolute Lymphocytes 1.6 Absolute Monocytes 0.7 Absolute Eosinophils 0.2 Absolute Basophils 0.1 Sodium 140.4 Potassium 3.3 L Chloride 100 Carbon Dioxide 31 H Anion Gap 9 BUN 15 Creatinine 0.68 Est GFR ( Amer) > 60 Est GFR (Non-Af Amer) > 60 Glucose 179 H Calcium 8.6 Impressions: Knee X-Ray 01/03/17 09:55 IMPRESSION: SATISFACTORY POSTOPERATIVE LEFT KNEE. 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 Will increase lantus to 45 units today due to chemstrips being in 200s (2) Altered mental status Is this a current diagnosis for this admission?: YesPlan: Resolved. Secondary to narcotic analgesics (3) Total knee replacement status Qualifiers: Laterality: left Qualified Code(s): Z96.652 - Presence of left artificial knee joint Is this a current diagnosis for this admission?: YesPlan: Management per orthopedic surgery. Patient has been able to participate in physical therapy the last 2 days (4) Atrial fibrillation Qualifiers: Atrial fibrillation type: persistent Qualified Code(s): I48.1 - Persistent atrial fibrillation Plan: Rate controlled on xarelto (5) Hypertension Qualifiers: Hypertension type: essential hypertension Qualified Code(s): I10 - Essential (primary) hypertension Plan: Patient had period of mild hypotension with systolic BP in the 80's this am. Hold antihypertensives for BP < 100mmHg (6) Stroke Qualifiers: CVA mechanism: unspecified Qualified Code(s): I63.9 - Cerebral infarction, unspecified Is this a current diagnosis for this admission?: YesPlan: Continue xarelto, statin. No new deficits. - Time Time Spent with patient: 25-34 minutes Critical Time spent with patient: 15-24 minutes Medications reviewed and adjusted accordingly: Yes Anticipated discharge: Acute Rehab Within: when bed available
[2017-01-10] MEDS: RIVAROXABAN 10 MG TABLET PO SCH (21:19)
[2017-01-10] MEDS: INSULIN GLARGINE,HUM.REC.ANLOG 300 UNIT/3 ML INSULN.PEN SUBCUT SCH (21:19)
[2017-01-10] MEDS: ATORVASTATIN CALCIUM 80 MG TABLET PO SCH (21:19)
[2017-01-11] MEDS: LANSOPRAZOLE 30 MG TAB.RAP.DR PO SCH (05:35)
[2017-01-11] MEDS: IBUPROFEN 600 MG TABLET PO SCH ×3 (08:13→16:44)
[2017-01-11] MEDS: GLIMEPIRIDE 4 MG TABLET PO SCH ×2 (08:13→16:44)
[2017-01-11] MEDS: BENAZEPRIL HCL 20 MG TABLET PO SCH (09:12)
[2017-01-11] MEDS: PRENATAL VITAMIN W-O CA NO5/FE FUMARATE/FA CAPSULE PO SCH (09:12)
[2017-01-11] MEDS: SENNOSIDES/DOCUSATE 8.6-50 MG 1 EACH TABLET PO SCH ×2 (09:13→16:44)
[2017-01-11] MEDS: METOPROLOL TARTRATE 25 MG TABLET PO SCH ×2 (09:13→22:00)
[2017-01-11] MEDS: INSULIN LISPRO 100 UNIT/ML 3 ML VIAL SUBCUT PRN (16:45)
[2017-01-11] MEDS: INSULIN GLARGINE,HUM.REC.ANLOG 300 UNIT/3 ML INSULN.PEN SUBCUT SCH (22:00)
[2017-01-11] MEDS: ATORVASTATIN CALCIUM 80 MG TABLET PO SCH (22:00)
[2017-01-11] MEDS: RIVAROXABAN 10 MG TABLET PO SCH (22:00)
[2017-01-12] MEDS: LANSOPRAZOLE 30 MG TAB.RAP.DR PO SCH (05:25)
--- NOTE | 2017-01-12 07:52 | PDOC TRANSFER SUMMARY ---
General - Admit/Disc Date/PCP Admission Date/Primary Care Provider: 01/03/17 06:26 IMANI SANTORO MD Discharge Date: 01/12/17 - Discharge Diagnosis (1) Arthritis of knee, right Is this a current diagnosis for this admission?: Yes - Additional Information Resuscitation Status: Full Code Home Medications: Apixaban [Eliquis 5 mg Tablet] 5 mg PO BID #0 tablet 10/13/16 Atorvastatin Calcium [Lipitor 80 mg Tablet] 80 mg PO QHS #0 tablet 10/13/16 Metoprolol Tartrate [Lopressor 25 mg Tablet] 25 mg PO Q12 #0 tablet 10/13/16 Benazepril HCl [Lotensin 20 mg Tablet] 20 mg PO QAM 12/21/16 Diazepam [Valium] 2 mg PO DAILY 12/21/16 Glimepiride [Amaryl 4 mg Tablet] 4 mg PO BID 12/21/16 Insulin Glargine,Hum.rec.anlog [Toujeo Solostar] 56 unit SQ QPM 12/21/16 Sildenafil Citrate [Viagra] 50 mg PO DAILY PRN 12/21/16 History of Present Illness Admission Date/PCP: 01/03/17 06:26 IMANI SANTORO MD History of Present Illness: Patient is a 66-year-old white male with progressive left knee pain and functional disability who presents for elective left knee arthroplasty. Hospital Course Hospital Course: Patient is admitted through the operating room where he undergoes an uncomplicated left knee arthroplasty. In the early postoperative period he altered mental status was thought to be related to narcotic medication. The hospitalist service was consulted and make recommendations in terms of his medications. Narcotics were held and his mental status returns. He continues to have significant limitations in terms of making progress with physical therapy and is ready for discharge to a senior living facility. Physical Exam Vital Signs: Temp Pulse Resp BP Pulse Ox 36.7 C 50 L 14 121/73 99 01/12/17 03:47 01/12/17 03:47 01/12/17 03:47 01/12/17 03:47 01/12/17 03:47 Intake & Output 01/11/17 01/12/17 01/13/17 06:59 06:59 06:59 Intake Total 675 1187 Output Total 1150 1100 Balance -475 87 Weight 112.3 kg General appearance: PRESENT: no acute distress Head exam: PRESENT: normocephalic Respiratory exam: PRESENT: unlabored Cardiovascular exam: PRESENT: RRR Pulses: PRESENT: +1 pedal pulses bilateral Vascular exam: PRESENT: normal capillary refill GI/Abdominal exam: PRESENT: soft Rectal exam: PRESENT: deferred Musculoskeletal exam: PRESENT: other - Lower extremity picot dressing is not connected to suction at this point but is clean and dry and intact. Neurological exam: PRESENT: alert, awake, oriented to person, oriented to place , oriented to time, oriented to situation Psychiatric exam: PRESENT: flat affect Skin exam: PRESENT: dry, intact, warm. ABSENT: cyanosis, rash Results Laboratory Results: 01/10/17 08:19 01/10/17 08:19 Impressions: Knee X-Ray 01/03/17 09:55 IMPRESSION: SATISFACTORY POSTOPERATIVE LEFT KNEE. Transfer Plan - Disposition Transfer Plan: To be transferred to a senior living facility for ongoing aggressive physical therapy aimed at range of motion, strengthening, and weightbearing as tolerated ambulation. Narcotic medication should be judicious. Picot dressing can be changed if needed. Patient can follow-up with Dr. Myrick in the [facility] for surgery in approximately 7-10 days for staple removal. - Time Spent with Patient Time spent with patient: Less than 30 Minutes
[2017-01-12] MEDS: BENAZEPRIL HCL 20 MG TABLET PO SCH (10:12)
[2017-01-12] MEDS: PRENATAL VITAMIN W-O CA NO5/FE FUMARATE/FA CAPSULE PO SCH (10:12)
[2017-01-12] MEDS: GLIMEPIRIDE 4 MG TABLET PO SCH (10:12)
[2017-01-12] MEDS: SENNOSIDES/DOCUSATE 8.6-50 MG 1 EACH TABLET PO SCH (10:12)
[2017-01-12] MEDS: IBUPROFEN 600 MG TABLET PO SCH ×2 (10:12→13:16)
[2017-01-12] MEDS: METOPROLOL TARTRATE 25 MG TABLET PO SCH (10:13)
[2017-01-12 15:20] VITALS: BP 144/60
--- NOTE | 2017-01-12 15:34 | PROGRESS NOTE E ---
Progress Note NAME: VISH NUÑEZ : 1950 AGE: 66Y DATE: 01/12/2017 ROOM: 429 SUBJECTIVE: The patient is currently lying in bed. He states he feels okay today. He denies any nausea, vomiting or diarrhea, no shortness of breath, dizziness or chest pain, no fever or chills. The patient has been afebrile. Blood pressures have been in a good range. The patient does not voice any other concerns at this time. REVIEW OF SYSTEMS: Rest of review of systems is negative. MEDICATIONS: Medications have been reviewed. OBJECTIVE: GENERAL: The patient is a 66-year-old -Israeli male who is awake and alert. He is oriented to person, place, time and situation. He is verbal and conversational and does to appear to be in any acute distress. VITAL SIGNS: Temperature is 98.2, pulse 65, respirations 18, blood pressure 143/83, oxygen saturation is 92% on room air. SKIN: Warm and dry. No rashes, not diaphoretic. HEENT: Pupils are equal, round, reactive to light and accommodation. Conjunctivae pink. NECK: There is no JVP. CARDIOVASCULAR: Heart is regular. There is no murmur or rub. CHEST: Clear, symmetrical, and unlabored. ABDOMEN: Soft, nontender and nondistended. BACK: No CVA tenderness, no sacral edema. EXTREMITIES: No clubbing, cyanosis or edema. PSYCHIATRIC: Appropriate affect, pleasant mood. DIAGNOSTIC DATA: Lab values are as follows: Hematology obtained on 01/10/2017: WBC is 10.7, hemoglobin 13.5, hematocrit 40.6, and platelet count is 278,000. Chemistries obtained on 01/12/2017: Glucose is 156. IMPRESSION AND PLAN: 1. DIABETES MELLITUS TYPE 2. Blood sugars have been in a good range. Will continue current dosages and follow. 2. TOTAL KNEE REPLACEMENT. Management is per orthopedics. 3. ALTERED MENTAL STATUS. Resolved, most likely due to narcotics. 4. ATRIAL FIBRILLATION. The patient is rate controlled on Xarelto. 5. HYPERTENSION. Blood pressures have been in a good range. Will continue current medications. 6. CVA. The patient has no deficits. DISPOSITION: The patient is a FULL CODE. The patient can be discharged to a rehab facility as soon as a bed is available. TIME: Time spent on this followup including assessment, plan, physical examination and patient education is 10 minutes. DICTATING PHYSICIAN: CARLOTA WILCOX NP [id number] PHY#: [id number] ID: [id number] JOB#: [id number] ACCT: [id number] cc: > [facility]
== END 2017-01-12 15:30 | DRG 470 ==
LOC: INOR 06:26 → 4S 12:17
PROVIDERS: ADMIT Orthopaedic Surgery; ATTEND Orthopaedic Surgery
PROC: 0SRD0J9 Replacement of Left Knee Joint with Synthetic Substitute, Cemented, Open Approach (ICD-10-PCS; principal; 2017-01-03 08:45)
DX: M17.0 Bilateral primary osteoarthritis of knee (principal); I69.351 Hemiplegia and hemiparesis following cerebral infarction affecting right dominant side; Z79.4 Long term (current) use of insulin; Z79.899 Other long term (current) drug therapy; R41.82 Altered mental status, unspecified; T40.605A Adverse effect of unspecified narcotics, initial encounter; Y92.239 Unspecified place in hospital as the place of occurrence of the external cause; I48.0 Paroxysmal atrial fibrillation; I25.2 Old myocardial infarction; F41.9 Anxiety disorder, unspecified; I95.89 Other hypotension; I10 Essential (primary) hypertension; E78.5 Hyperlipidemia, unspecified; Z79.02 Long term (current) use of antithrombotics/antiplatelets; E11.40 Type 2 diabetes mellitus with diabetic neuropathy, unspecified; E03.9 Hypothyroidism, unspecified; Z82.49 Family history of ischemic heart disease and other diseases of the circulatory system; Z91.013 Allergy to seafood; Z87.891 Personal history of nicotine dependence
CPT/HCPCS: 01402; 36415; 80048; 82962; 85025; 85027; 85610; 85730; 88304; 88311; 94667; 94668; 94799; C2625; C9290; J0690; J1630; J1741; J1815; J2250; J2270; J2370; J2405; J2704; J2765; J3010; J3370; J3490; J7030; J7050; J7060; J7120

== ENCOUNTER → 2017-06-29 | Outpatient (CLI) | payer MEDICARE ==
[2017-06-29 14:09] LABS: ALANINE AMINOTRANSFERASE 40 U/L (21-72); ASPARTATE AMINO TRANSFERASE 20 U/L (17-59); CHOLESTEROL 258.66 mg/dL (0-200); Direct HDL 48 mg/dL (>40); TRIGLYCERIDES 234 mg/dL (<150)
[2017-06-29 14:20] LABS: DIRECT LDL 160 mg/dL (<100)
[2017-06-29 14:26] LABS: VLDL CHOLESTEROL 46.8 mg/dL (10-31)
== END ==
LOC: OD 11:36
PROVIDERS: ATTEND Family Medicine Geriatric Medicine
DX: E78.5 Hyperlipidemia, unspecified (principal); E11.65 Type 2 diabetes mellitus with hyperglycemia; E03.9 Hypothyroidism, unspecified; Z79.899 Other long term (current) drug therapy
CPT/HCPCS: 36415; 80061; 83036; 84443; 84450; 84460

== ENCOUNTER → 2017-06-29 | Outpatient (CLI) | payer BC, MEDICARE ==
--- NOTE | 2017-06-29 12:59 | RADIOLOGY REPORT (SQ) ---
EXAM DESCRIPTION: ACUTE ABDOMEN SERIES COMPLETED DATE/TIME: 06/29/2017 12:05 pm REASON FOR STUDY: LEFT LOWER QUADRANT PAIN R10.32 LEFT LOWER QUADRANT PAIN COMPARISON: None. NUMBER OF VIEWS: Three views. TECHNIQUE: Frontal chest, supine abdomen and upright/decubitus abdomen radiographic images acquired. LIMITATIONS: None. FINDINGS: CHEST: Lungs clear of infiltrates. FREE AIR: None. No abnormal gas collections. BOWEL GAS PATTERN: Nonobstructive pattern. No dilated loops or air fluid levels. CALCIFICATIONS: No suspicious calcifications. HARDWARE: None in the abdomen. Hardware in the right shoulder. SOFT TISSUES: No gross mass or suggestion of organomegaly. BONES: No acute fracture. No worrisome bone lesions. Degenerative changes in the spine with prior l umbar laminectomy. OTHER: No other significant finding. IMPRESSION: NO RADIOGRAPHIC EVIDENCE FOR ACUTE ABDOMINAL DISEASE. TECHNICAL DOCUMENTATION: JOB ID: [id number] [employer]- All Rights Reserved
== END ==
LOC: OD 11:14
PROVIDERS: ATTEND Family Medicine Geriatric Medicine
DX: R10.32 Left lower quadrant pain (principal)
CPT/HCPCS: 74022

== ENCOUNTER → 2017-11-25 | Outpatient (CLI) | payer MEDICARE ==
[2017-11-25 11:31] LABS: ABSOLUTE EOSINOPHILS # (AUTO) 0.2 10^3/uL (0.0-0.6); ABSOLUTE LYMPHOCYTES (AUTO) 3.1 10^3/uL (0.5-4.7); ABSOLUTE MONOCYTES (AUTO) 0.7 10^3/uL (0.1-1.4); ABSOLUTE NEUT (AUTO) 4.7 10^3/uL (1.7-8.2); BASOPHILS % (AUTO) 0.3 % (0-2); HEMATOCRIT 48.2 % (37.9-51.0); HEMOGLOBIN 16.4 g/dL (13.5-17.0); LYMPHOCYTES % (AUTO) 35.6 % (13-45); MEAN CORPUSCULAR HEMOGLOBIN 32.5 pg (27.0-33.4); MEAN CORPUSCULAR HGB CONC 34.1 g/dL (32.0-36.0); MEAN CORPUSCULAR VOLUME 95 fl (80-97); MONOCYTES % (AUTO) 7.6 % (3-13); PLATELET COUNT 212 10^3/uL (150-450); RED BLOOD COUNT 5.06 10^6/uL (4.35-5.55); RED CELL DISTRIBUTION WIDTH 12.8 % (11.5-14.0); SEGMENTED NEUTROPHILS % (AUTO) 54.5 % (42-78); TOTAL CELLS COUNTED % (AUTO) 100 %; WHITE BLOOD COUNT 8.6 10^3/uL (4.0-10.5)
[2017-11-25 11:57] LABS: ALANINE AMINOTRANSFERASE 49 U/L (21-72); ANION GAP 14 (5-19); ASPARTATE AMINO TRANSFERASE 22 U/L (17-59); BLOOD UREA NITROGEN 14 mg/dL (7-20); CALCIUM 9.7 mg/dL (8.4-10.2); CARBON DIOXIDE 28 mmol/L (22-30); CHLORIDE 103 mmol/L (98-107); CHOLESTEROL 227.13 mg/dL (0-200); DIGOXIN 1.03 ng/mL (0.8-2.0); GLUCOSE 181 mg/dL (75-110); POTASSIUM 3.7 mmol/L (3.6-5.0); SODIUM 144.7 mmol/L (137-145); TRIGLYCERIDES 220 mg/dL (<150)
[2017-11-25 12:05] LABS: DIRECT LDL 135 mg/dL (<100)
[2017-11-26 12:37] LABS: CREATININE URINE 128.7 mg/dL (Not Estab.)
== END ==
LOC: OD 10:11
PROVIDERS: ATTEND Family Medicine Geriatric Medicine
DX: E11.40 Type 2 diabetes mellitus with diabetic neuropathy, unspecified (principal); I48.0 Paroxysmal atrial fibrillation; E03.9 Hypothyroidism, unspecified; Z79.899 Other long term (current) drug therapy; E78.5 Hyperlipidemia, unspecified
CPT/HCPCS: 36415; 80048; 80061; 80162; 82043; 82570; 83036; 84450; 84460; 85025

== ENCOUNTER 2018-02-09 07:00 | Day surgery (SDC) | payer MEDICARE ==
[~2018-02-09 07:00] MED LIST changes: -BUPIVACAINE INJ/PF LIPOSOME/PF 266 MG/20 ML SDV IJ PRN; -CEFAZOLIN INJ 1 GM VIAL IV PRN; -IBUPROFEN 800 MG/NS 250 ML IV PRN; +KETOROLAC TROMETHAMINE 0.45% 4 DROP/0.4 ML DROPERETTE OS PRN; -LACTATED RINGERS 1000 ML IV PRN; -LANSOPRAZOLE 15 MG TAB.RAP.DR PO PRN; -OXYCODONE HCL SR 10 MG TABLET PO PRN; -SCOPOLAMINE HYDROBROMIDE 1.5 MG PATCH.TD72 TOP PRN; -VANCOMYCIN HCL 1,000 MG in DEXTROSE 5%-WATER 250 ML IV PRN
[2018-02-09] MEDS ORDERED: EPINEPHRINE INJ/PF 1 MG/1 ML AMPULE ONE (07:21)
[2018-02-09] MEDS ORDERED: LIDOCAINE 1% INJ-PF (10 MG/ML) 30 ML SDV ONE (07:22)
[2018-02-09] MEDS ORDERED: CHONDR SU A NA/HYALUR INTRAOC KIT (SURGICARE) ONE (07:22)
[2018-02-09] MEDS: CYCLOPENTOLATE 0.2%/PHENYLEPHRINE 1% OPH SOLN 2 ML OS PRN ×3 (07:48→08:08)
[2018-02-09] MEDS: BESIFLOXACIN HCL 0.6% OPH SUSP 5 ML BOTTLE OS PRN ×4 (07:48→08:36)
[2018-02-09] MEDS: TROPICAMIDE 1% OPH SOLN 3 ML OS PRN ×3 (07:48→08:08)
[2018-02-09] MEDS: TETRACAINE HCL 0.5% OPH SOLN 2 ML OS PRN ×3 (07:49→08:17)
[2018-02-09] MEDS ORDERED: MIDAZOLAM 2 MG/2 ML INJ ONE (08:00)
[2018-02-09] MEDS ORDERED: FENTANYL CITRATE INJ/PF 100 MCG/2 ML AMPUL ONE (08:01)
--- NOTE | 2018-02-10 13:11 | [facility] OPERATIVE REPORT E ---
[facility] Operative Report NAME: VISH NUÑEZ AGE: 67Y DATE OF SURGERY: 02/09/2018 ROOM: PREOPERATIVE DIAGNOSIS: CATARACT, LEFT EYE. POSTOPERATIVE DIAGNOSIS: CATARACT, LEFT EYE. OPERATION: Cataract extraction with insertion of an IOL of the left eye. SURGEON: JT WILDER M.D. ANESTHESIA: Topical. PROCEDURE: After obtaining appropriate consent, the patient's left eye was prepped and draped in sterile fashion as well as the surgeon in a sterile manner and cataract surgery was started. First a paracentesis blade was used to make a side-port incision. Viscoelastic was used to inflate the anterior chamber. Next a 2.4 mm incision was made with a 2.4 mm blade, clear corneal temporally. A continuous capsulorrhexis was made using a cystotome and Utrata forceps. Following this hydrodissection was carried out to make the lens fully loose and mobile and it was rotated 90 degrees. Following this, a ngecvl-skj-ilbbbzc technique was used to phacoemulsify the lens with a CDE of 7.90. The remaining cortex was removed with irrigation/aspiration. Provisc was instilled into the capsular bag to inflate the bag. A SN60WF, 22.0 diopter lens was placed. The remaining viscoelastic material was removed with irrigation/aspiration. Following this, the incision was found to be watertight. Besivance was instilled into the eye and a protective shield was placed over the eye. The patient returned to the postoperative recovery in stable condition. DICTATING PHYSICIAN: JT WILDER M.D. [id number] PHY#: [id number] ID: [id number] JOB#: [id number] ACCT: [id number] cc:JT WILDER M.D. >
--- NOTE | 2018-02-10 13:15 | [facility] DISCHARGE SUMMARY E ---
[facility] Discharge Summary NAME: VISH NUÑEZ AGE: 67Y ADMITTED: 02/09/2018 DISCHARGED: 02/09/2018 DIAGNOSIS: CATARACT, LEFT EYE. SUMMARY: This is a 67-year-old patient who underwent cataract extraction, left eye. Patient underwent surgery because he was having increased glare from the sunlight making it difficult to see. DISCHARGE INSTRUCTIONS: Patient should be on a regular diet, no bending at the waist, and no heavy lifting. Patient should use his Besivance, Ilevro, and Durezol at 3 p.m. and 8 p.m. and sleep with a rigid shield. I will see him for a 1-day postoperative tomorrow. DICTATING PHYSICIAN: JT WILDER M.D. [id number] PHY#: [id number] ID: [id number] JOB#: [id number] ACCT: [id number] cc:JT WILDER M.D. >
== END 2018-02-09 09:35 | disposition home or self-care (01) ==
LOC: SC 07:00
PROVIDERS: ATTEND Internal Medicine
DX: H25.813 Combined forms of age-related cataract, bilateral (principal); E08.3293 Diabetes mellitus due to underlying condition with mild nonproliferative diabetic retinopathy without macular edema, bilateral; H17.89 Other corneal scars and opacities; I10 Essential (primary) hypertension; M19.90 Unspecified osteoarthritis, unspecified site; E78.5 Hyperlipidemia, unspecified; E78.00 Pure hypercholesterolemia, unspecified; E03.9 Hypothyroidism, unspecified; I51.9 Heart disease, unspecified; I48.91 Unspecified atrial fibrillation; Z87.891 Personal history of nicotine dependence; Z79.899 Other long term (current) drug therapy; Z79.84 Long term (current) use of oral hypoglycemic drugs; Z79.891 Long term (current) use of opiate analgesic; I69.851 Hemiplegia and hemiparesis following other cerebrovascular disease affecting right dominant side
CPT/HCPCS: 66984; 82962; V2632; J2250; J3490 ×2; A9270; J0171; J3010; 142

== ENCOUNTER 2018-03-27 07:09 | Day surgery (SDC) | payer MEDICARE ==
[~2018-03-27 07:09] MED LIST changes: +CHONDR SU A NA/HYALUR INTRAOC KIT (SURGICARE) ONE; +EPINEPHRINE INJ/PF 1 MG/1 ML AMPULE ONE; +KETOROLAC TROMETHAMINE 0.45% 4 DROP/0.4 ML DROPERETTE OD PRN; -KETOROLAC TROMETHAMINE 0.45% 4 DROP/0.4 ML DROPERETTE OS PRN
[2018-03-27] MEDS ORDERED: MIDAZOLAM 2 MG/2 ML INJ ONE (07:10)
[2018-03-27] MEDS: TROPICAMIDE 1% OPH SOLN 3 ML OD PRN ×3 (07:18→07:45)
[2018-03-27] MEDS: TETRACAINE HCL 0.5% OPH SOLN 2 ML OD PRN ×3 (07:18→07:55)
[2018-03-27] MEDS: BESIFLOXACIN HCL 0.6% OPH SUSP 5 ML BOTTLE OD PRN ×3 (07:18→08:18)
[2018-03-27] MEDS: CYCLOPENTOLATE 0.2%/PHENYLEPHRINE 1% OPH SOLN 2 ML OD PRN ×3 (07:18→07:45)
[2018-03-27] MEDS ORDERED: CHONDR SU A NA/HYALUR INTRAOC KIT (SURGICARE) ONE (07:48)
[2018-03-27] MEDS ORDERED: LIDOCAINE 1% INJ-PF (10 MG/ML) 30 ML SDV ONE (07:48)
--- NOTE | 2018-03-27 17:11 | [facility] OPERATIVE REPORT E ---
[facility] Operative Report NAME: VISH NUÑEZ AGE: 67Y DATE OF SURGERY: 03/27/2018 ROOM: PREOPERATIVE DIAGNOSIS: CATARACT, RIGHT EYE. POSTOPERATIVE DIAGNOSIS: CATARACT, RIGHT EYE. OPERATION: Cataract extraction with insertion of an IOL of the right eye. SURGEON: JT WILDER M.D. ANESTHESIA: Topical. PROCEDURE: After obtaining appropriate consent, the patient's right eye was prepped and draped in sterile fashion as well as the surgeon in a sterile manner and cataract surgery was started. First a paracentesis blade was used to make a side-port incision. Viscoelastic was used to inflate the anterior chamber. Next a 2.4 mm incision was made with a 2.4 mm blade, clear corneal temporally. A continuous capsulorrhexis was made using a cystotome and Utrata forceps. Following this hydrodissection was carried out to make the lens fully loose and mobile and it was rotated 90 degrees. Following this, a gpsluc-ysg-zamwvef technique was used to phacoemulsify the lens with a CDE of 9.91. The remaining cortex was removed with irrigation/aspiration. Provisc was instilled into the capsular bag to inflate the bag. A SN60WF, 24.0 diopter lens was placed. The remaining viscoelastic material was removed with irrigation/aspiration. Following this, the incision was found to be watertight. Besivance was instilled into the eye and a protective shield was placed over the eye. The patient returned to the postoperative recovery in stable condition. DICTATING PHYSICIAN: JT WILDER M.D. [id number] PHY#: [id number] ID: [id number] JOB#: [id number] ACCT: [id number] cc:JT WILDER M.D. >
--- NOTE | 2018-03-27 17:16 | [facility] DISCHARGE SUMMARY E ---
[facility] Discharge Summary NAME: VISH NUÑEZ AGE: 67Y ADMITTED: 03/27/2018 DISCHARGED: This is a 67-year-old patient who underwent cataract extraction of the right eye. DIAGNOSES: Cataract, right eye. HOSPITAL COURSE: He underwent surgery because he was having difficulty seeing small print. DISCHARGE INSTRUCTIONS: He should be on a regular diet. No bending at the waist. No heavy lifting. He should use his Besivance, Ilevro, and Durezol at 3 p.m. and 8 p.m. and sleep with a rigid shield. I will see him for his one-day postoperative tomorrow. DICTATING PHYSICIAN: JT WILDER M.D. [id number] PHY#: [id number] ID: [id number] JOB#: [id number] ACCT: [id number] cc:JT WIDLER M.D. >
== END 2018-03-27 09:02 | disposition home or self-care (01) ==
LOC: SC 07:09
PROVIDERS: ATTEND Internal Medicine
DX: H25.811 Combined forms of age-related cataract, right eye (principal); Z96.1 Presence of intraocular lens; E11.9 Type 2 diabetes mellitus without complications; I48.91 Unspecified atrial fibrillation; E07.9 Disorder of thyroid, unspecified; I11.0 Hypertensive heart disease with heart failure; I50.9 Heart failure, unspecified; I25.2 Old myocardial infarction; Z86.73 Personal history of transient ischemic attack (TIA), and cerebral infarction without residual deficits
CPT/HCPCS: 82962; 66984; V2632; J2250; J3490 ×2; A9270; J0171; 142

== ENCOUNTER → 2018-05-24 | Outpatient (CLI) | payer MEDICARE ==
[2018-05-24 13:05] LABS: ABSOLUTE BASOPHILS # (AUTO) 0.1 10^3/uL (0.0-0.2); ABSOLUTE EOSINOPHILS # (AUTO) 0.1 10^3/uL (0.0-0.6); ABSOLUTE LYMPHOCYTES (AUTO) 2.1 10^3/uL (0.5-4.7); ABSOLUTE MONOCYTES (AUTO) 0.8 10^3/uL (0.1-1.4); ABSOLUTE NEUT (AUTO) 6.6 10^3/uL (1.7-8.2); BASOPHILS % (AUTO) 0.6 % (0-2); EOSINOPHILS % (AUTO) 0.9 % (0-6); HEMATOCRIT 46.1 % (37.9-51.0); HEMOGLOBIN 15.9 g/dL (13.5-17.0); LYMPHOCYTES % (AUTO) 21.7 % (13-45); MEAN CORPUSCULAR HGB CONC 34.4 g/dL (32.0-36.0); MEAN CORPUSCULAR VOLUME 96 fl (80-97); PLATELET COUNT 242 10^3/uL (150-450); RED CELL DISTRIBUTION WIDTH 13.5 % (11.5-14.0); SEGMENTED NEUTROPHILS % (AUTO) 68.8 % (42-78); TOTAL CELLS COUNTED % (AUTO) 100 %; WHITE BLOOD COUNT 9.6 10^3/uL (4.0-10.5)
[2018-05-24 13:35] LABS: ALANINE AMINOTRANSFERASE 29 U/L (21-72); ANION GAP 9 (5-19); BLOOD UREA NITROGEN 14 mg/dL (7-20); CALCIUM 9.7 mg/dL (8.4-10.2); CARBON DIOXIDE 28 mmol/L (22-30); CHLORIDE 103 mmol/L (98-107); CHOLESTEROL 243.79 mg/dL (0-200); DIGOXIN 0.49 ng/mL (0.8-2.0); GLUCOSE 88 mg/dL (75-110); POTASSIUM 4.2 mmol/L (3.6-5.0); SODIUM 140.4 mmol/L (137-145); TRIGLYCERIDES 247 mg/dL (<150)
[2018-05-24 13:43] LABS: DIRECT LDL 162 mg/dL (<100)
[2018-05-24 13:46] LABS: VLDL CHOLESTEROL 49.4 mg/dL (10-31)
[2018-05-25 12:38] LABS: CREATININE URINE 144.9 mg/dL (Not Estab.); MICROALBUMIN URINE 468.2 ug/mL (Not Estab.)
== END ==
LOC: OD 10:30
PROVIDERS: ATTEND Family Medicine Geriatric Medicine
DX: I10 Essential (primary) hypertension (principal); I48.0 Paroxysmal atrial fibrillation; E78.5 Hyperlipidemia, unspecified; E11.9 Type 2 diabetes mellitus without complications; Z79.899 Other long term (current) drug therapy
CPT/HCPCS: 36415; 80048; 80061; 80162; 82043; 82570; 83036; 84443; 84460; 85025

== ENCOUNTER → 2018-10-04 | Outpatient (CLI) | payer MEDICARE ==
[2018-10-04 10:25] LABS: ALANINE AMINOTRANSFERASE 28 U/L (21-72); CHOLESTEROL 232.96 mg/dL (0-200); TRIGLYCERIDES 250 mg/dL (<150)
[2018-10-04 10:38] LABS: DIRECT LDL 146 mg/dL (<100)
[2018-10-05 11:40] LABS: CREATININE URINE 82.6 mg/dL (Not Estab.)
[2018-10-05 12:48] LABS: MICROALBUMIN URINE 473.1 ug/mL (Not Estab.)
== END ==
LOC: OD 08:49
PROVIDERS: ATTEND Family Medicine Geriatric Medicine
DX: E11.9 Type 2 diabetes mellitus without complications (principal); I10 Essential (primary) hypertension; E78.5 Hyperlipidemia, unspecified; Z79.899 Other long term (current) drug therapy
CPT/HCPCS: 36415; 80061; 82043; 82570; 83036; 84460

== ENCOUNTER → 2018-12-06 | Outpatient (CLI) | payer MEDICARE ==
[2018-12-06 09:25] LABS: ASPARTATE AMINO TRANSFERASE 22 U/L (17-59); CHOLESTEROL 216.92 mg/dL (0-200); TRIGLYCERIDES 221 mg/dL (<150)
[2018-12-06 09:37] LABS: DIRECT LDL 144 mg/dL (<100)
[2018-12-06 09:38] LABS: VLDL CHOLESTEROL 44.2 mg/dL (10-31)
== END ==
LOC: OD 07:53
PROVIDERS: ATTEND Family Medicine Geriatric Medicine
DX: E78.5 Hyperlipidemia, unspecified (principal); Z79.899 Other long term (current) drug therapy
CPT/HCPCS: 36415; 80061; 84450

== ENCOUNTER → 2019-02-21 | Outpatient (CLI) | payer MEDICARE ==
[2019-02-21 11:21] LABS: ALANINE AMINOTRANSFERASE 34 U/L (21-72); ALKALINE PHOSPHATASE 66 U/L (38-126); ANION GAP 8 (5-19); ASPARTATE AMINO TRANSFERASE 29 U/L (17-59); BILIRUBIN,DIRECT 0.2 mg/dL (0.0-0.4); BILIRUBIN,TOTAL 0.7 mg/dL (0.2-1.3); BLOOD UREA NITROGEN 18 mg/dL (7-20); CALCIUM 9.7 mg/dL (8.4-10.2); CARBON DIOXIDE 28 mmol/L (22-30); CHLORIDE 105 mmol/L (98-107); GLUCOSE 226 mg/dL (75-110); POTASSIUM 4.7 mmol/L (3.6-5.0); TRIGLYCERIDES 168 mg/dL (<150)
[2019-02-21 11:32] LABS: DIRECT LDL 116 mg/dL (<100)
[2019-02-21 11:41] LABS: VLDL CHOLESTEROL 33.6 mg/dL (10-31)
[2019-02-22 10:36] LABS: CREATININE URINE 125.8 mg/dL (Not Estab.)
[2019-02-22 11:20] LABS: MICROALBUMIN URINE 681.4 ug/mL (Not Estab.)
== END ==
LOC: OD 09:16
PROVIDERS: ATTEND Family Medicine Geriatric Medicine
DX: E78.5 Hyperlipidemia, unspecified (principal); E03.9 Hypothyroidism, unspecified; I10 Essential (primary) hypertension; E11.44 Type 2 diabetes mellitus with diabetic amyotrophy; I48.0 Paroxysmal atrial fibrillation; Z79.899 Other long term (current) drug therapy
CPT/HCPCS: 36415; 80053; 80061; 82043; 82570; 83036; 84443

== ENCOUNTER 2019-03-28 12:08 | Inpatient (IN) | payer MEDICARE ==
[2019-03-28] MEDS ORDERED: NORMAL SALINE 1000 ML 1,000 ML IV ONE (13:02)
--- NOTE | 2019-03-28 13:04 | EKG REPORT ---
SEVERITY:- ABNORMAL ECG - ATRIAL FIBRILLATION CVR 46-[address]-T CHANGES : Confirmed by: Rodri Seymour MD 28-Mar-2019 13:03:55
[2019-03-28 13:16] LABS: ABSOLUTE EOSINOPHILS # (AUTO) 0.1 10^3/uL (0.0-0.6); ABSOLUTE LYMPHOCYTES (AUTO) 2.7 10^3/uL (0.5-4.7); ABSOLUTE MONOCYTES (AUTO) 0.8 10^3/uL (0.1-1.4); BASOPHILS % (AUTO) 0.2 % (0-2); EOSINOPHILS % (AUTO) 1.2 % (0-6); HEMATOCRIT 48.2 % (37.9-51.0); HEMOGLOBIN 16.2 g/dL (13.5-17.0); MEAN CORPUSCULAR HEMOGLOBIN 32.5 pg (27.0-33.4); MEAN CORPUSCULAR HGB CONC 33.5 g/dL (32.0-36.0); MEAN CORPUSCULAR VOLUME 97 fl (80-97); MONOCYTES % (AUTO) 7.9 % (3-13); PLATELET COUNT 255 10^3/uL (150-450); RED BLOOD COUNT 4.97 10^6/uL (4.35-5.55); RED CELL DISTRIBUTION WIDTH 13.9 % (11.5-14.0); SEGMENTED NEUTROPHILS % (AUTO) 62.7 % (42-78); TOTAL CELLS COUNTED % (AUTO) 100 %; WHITE BLOOD COUNT 9.5 10^3/uL (4.0-10.5)
--- NOTE | 2019-03-28 13:18 | ER Document Report ---
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 noticed it that his speech was demonstrably changed she had a hard time un derstanding him. She states that he was complaining of the TV being blurry but has not previously complained about that, denies any fevers or recent illness, denies acute vision loss, denies facial droop or facial paresthesias, denies any worsening pronator drift from baseline, denies any acute shortness of breath or chest pain, denies any nausea or diaphoresis. TRAVEL OUTSIDE OF THE [place] IN LAST 30 DAYS: No - Related Data Allergies/Adverse Reactions: shrimp Allergy (Verified 03/28/19 12:08) Generalized rash Past Medical History - Social History Smoking Status: Former Smoker Chew tobacco use (# tins/day): No Frequency of alcohol use: None Drug Abuse: None Family History: Reviewed & Not Pertinent Patient has suicidal ideation: No Patient has homicidal ideation: No - Past Medical History Cardiac Medical History: Reports: Hx Atrial Fibrillation, Hx Heart Attack - 1994, Hx Hypercholesterolemia, Hx Hypertension Denies: Hx Congestive Heart Failure, Hx Coronary Artery Disease, Hx Peripheral Vascular Disease, Hx Pulmonary Embolism, Hx Heart Murmur Pulmonary Medical History: Reports: Hx Bronchitis - years ago, Hx Pneumonia - years ago Denies: Hx Asthma, Hx COPD, Hx Respiratory Failure, Hx Sleep Apnea, Hx Tuberculosis Neurological Medical History: Reports: Hx Cerebrovascular Accident - 09/2016 RT SIDE "USELESS" SOME SPEECH DIFFICULTIES. Denies: Hx Seizures Endocrine Medical History: Reports: Hx Diabetes Mellitus Type 2. Denies: Hx Graves' Disease, Hx Hyperthyroidism, Hx Hypothyroidism Renal/ Medical History: Reports: Hx Kidney Stones. Denies: Hx Benign Prostatic Hyperplasia, Hx End Stage Renal Disease, Hx Peritoneal Dialysis Malignancy Medical History: Denies Hx Lung Cancer GI Medical History: Denies: Hx Hepatitis, Hx Hiatal Hernia, Hx Ulcer Musculoskeletal Medical History: Reports Hx Arthritis, Denies Hx Fibromyalgia, Denies Hx Multiple Sclerosis, Denies Hx Muscular Dystrophy, Denies Hx Systemic Lupus Erythematosus Psychiatric Medical History: Denies: Hx Dementia Traumatic Medical History: Denies: Hx Fractures Infectious Medical History: Denies: Hx Hepatitis Past Surgical History: Reports: Hx Orthopedic Surgery - L knee replaced, R rotar cuff repair, Hx Tonsillectomy. Denies: Hx Appendectomy, Hx Bowel Surgery, Hx Cholecystectomy, Hx Coronary Artery Bypass Graft, Hx Gastric Bypass Surgery, Hx Herniorrhaphy, Hx Open Heart Surgery, Hx Pacemaker - Immunizations Hx Diphtheria, Pertussis, Tetanus Vaccination: No Review of Systems - Review of Systems Constitutional: See HPI EENT: See HPI Cardiovascular: See HPI Respiratory: See HPI Gastrointestinal: See HPI Genitourinary: No symptoms reported Male Genitourinary: No symptoms reported Musculoskeletal: No symptoms reported Skin: No symptoms reported Hematologic/Lymphatic: No symptoms reported Neurological/Psychological: See HPI Physical Exam - Vital signs Vitals: Temp Pulse Resp BP Pulse Ox 97.8 F 56 L 20 95/62 L 93 03/28/19 12:13 03/28/19 12:13 03/28/19 12:13 03/28/19 12:13 03/28/19 12:13 - Notes Notes: PHYSICAL EXAMINATION: Reviewed vital signs and charting by RN GENERAL: Alert, interacts well. No acute distress. HEAD: Normocephalic, atraumatic. EYES: Pupils equal and round. Extraocular movements intact. ENT: Oral mucosa moist, tongue midline. NECK: Full range of motion. Trachea midline. LUNGS: Clear to auscultation bilaterally, no wheezes, rales, or rhonchi. No respiratory distress. HEART: Irregularly irregular rhythm. No murmur ABDOMEN: soft, non-tender. No distention. Bowel sounds present EXTREMITIES: Moves all 4 extremities spontaneously. No edema, No cyanosis. NEURO: A &O X 3, slurred speech worse from baseline, PERRL, EOMI, SILT, follows commands in all 4 extremities, no gross abnormalities of cranial nerves, no focal neuro deficits, no worse pronator drift from baseline, [id number] testing normal, service operator strength 5/5 bilateral, 5/5 strength in both proximal and distal upper and lower extremities PSYCH: Normal affect, normal mood. SKIN: Warm, dry, normal turgor. No rashes or lesions noted. Course - Re-evaluation Re-evalutation: 03/28/19 16:27 Patient is overall well-appearing but has a definite slurred speech. says this is not baseline and has actually gotten worse in the interim since 4 PM yesterday. Work-up was overall very unremarkable and CT head without did not show evidence of an acute ischemia or intracranial bleed. Urinalysis was negative for UTI and patient's lactic acid was 1.3. I called the hospitalist Duyen Hernandez NP, who accepted the patient to IMCU under Dr. Carter. - Vital Signs Vital signs: Temp Pulse Resp BP Pulse Ox 97.8 F 50 L 13 128/74 H 91 L 03/28/19 12:13 03/28/19 12:44 03/28/19 14:00 03/28/19 14:00 03/28/19 14:00 - Laboratory Result Diagrams: 03/28/19 12:57 03/28/19 14:02 Laboratory results interpreted by me: 03/28/19 03/28/19 03/28/19 12:54 14:02 14:02 PT 16.3 H BUN 25 H Glucose 160 H POC Glucose 135 H Albumin 3.4 L Urine Protein Urine Blood 03/28/19 14:33 PT BUN Glucose POC Glucose Albumin Urine Protein 100 H Urine Blood SMALL H Discharge - Discharge Clinical Impression: TIA (transient ischemic attack) Condition: Stable Disposition: ADMITTED INPATIENT Admitting Provider: Raul (Hospitalist) Unit Admitted: IMCU Referrals: IMANI SANTORO MD [Primary Care Provider] - Follow up as needed
--- NOTE | 2019-03-28 13:21 | RADIOLOGY REPORT (SQ) ---
EXAM DESCRIPTION: CHEST SINGLE VIEW COMPLETED DATE/TIME: 03/28/2019 1:11 pm REASON FOR STUDY: altered mental status COMPARISON: None. NUMBER OF VIEWS: One view. TECHNIQUE: Single frontal radiographic view of the chest acquired. LIMITATIONS: None. FINDINGS: LUNGS AND PLEURA: Minimal linear atelectasis in the left base. No pneumothorax or effusio n. No consolidation. MEDIASTINUM AND HILAR STRUCTURES: No masses. Contour normal. HEART AND VASCULAR STRUCTURES: Heart normal in size. Normal vasculature. BONES: No acute findings. HARDWARE: None in the chest. OTHER: No other significant finding. IMPRESSION: Minimal linear atelectasis in the left base. No other significant findings. TECHNICAL DOCUMENTATION: JOB ID: [id number]- All Rights Reserved Reading location - IP/workstation name: [email or web address]
--- NOTE | 2019-03-28 13:34 | RADIOLOGY REPORT (SQ) ---
EXAM DESCRIPTION: CT HEAD WITHOUT COMPLETED DATE/TIME: 03/28/2019 1:25 pm REASON FOR STUDY: altered mental status COMPARISON: 10/09/2016 TECHNIQUE: Axial images acquired through the brain without intravenous contrast. Images reviewed wi th bone, brain and subdural windows. Additional sagittal and coronal reconstructions were generated. Images stored on PACS. All CT scanners at this facility use dose modulation, iterative reconstruction, and/or weight based d osing when appropriate to reduce radiation dose to as low as reasonably achievable (ALARA). [facility]: Dose Right [facility]: CareDose [facility]: Dose Right [facility]: Teradose 4D [facility]: fake company 2.0 RADIATION DOSE: CT Rad equipment meets quality standard of care and radiation dose reduction techniq ues were employed. CTDIvol: 48.6 mGy. DLP: 930 mGy-cm. mGy. LIMITATIONS: None. FINDINGS: VENTRICLES: Prominent. CEREBRUM: No masses. No hemorrhage. No midline shift. Areas of low density in the white matter mos t likely due to chronic micro-vascular ischemic change. No evidence for acute infarction. CEREBELLUM: No masses. No hemorrhage. No alteration of density. No evidence for acute infarction. EXTRAAXIAL SPACES: Mild age-related involutional change. No fluid collections. No masses. ORBITS AND GLOBE: No intra- or extraconal masses. Normal contour of globe without masses. CALVARIUM: No fracture. PARANASAL SINUSES: No fluid or mucosal thickening. SOFT TISSUES: No mass or hematoma. OTHER: No other significant finding. IMPRESSION: MILD CHRONIC CHANGES OF ATROPHY AND MICROVASCULAR ISCHEMIA. NO ACUTE PROCESS. EVIDENCE OF ACUTE STROKE: NO. TECHNICAL DOCUMENTATION: JOB ID: [id number] Quality ID # [id number]: Final reports with documentation of one or more dose reduction techniques (e.g., Au tomated exposure control, adjustment of the mA and/or kV according to patient size, use of iterative reconstruction technique) 2010 [email or web address]- All Rights Reserved Reading location - IP/workstation name: [email or web address]
[2019-03-28 14:18] LABS: PARTIAL THROMBOPLASTIN TIME 33.9 SEC (23.5-35.8)
[2019-03-28 14:21] LABS: PROTHROMBIN TIME 16.3 SEC (11.4-15.4)
[2019-03-28 14:30] LABS: ALBUMIN 3.4 g/dL (3.5-5.0); ALKALINE PHOSPHATASE 48 U/L (38-126); ANION GAP 7 (5-19); ASPARTATE AMINO TRANSFERASE 30 U/L (17-59); BILIRUBIN,DIRECT 0.3 mg/dL (0.0-0.4); BILIRUBIN,TOTAL 0.5 mg/dL (0.2-1.3); BLOOD UREA NITROGEN 25 mg/dL (7-20); CALCIUM 9.3 mg/dL (8.4-10.2); CARBON DIOXIDE 24 mmol/L (22-30); CHLORIDE 106 mmol/L (98-107); CREATINE KINASE 108 U/L (55-170); GLUCOSE 160 mg/dL (75-110); POTASSIUM 4.5 mmol/L (3.6-5.0)
[2019-03-28 14:42] LABS: CREATINE KINASE MB 1.56 ng/mL (<4.55)
[2019-03-28 15:02] LABS: TROPONIN I < 0.012 ng/mL
[2019-03-28 15:39] LABS: APPEARANCE,URINE SLIGHTLY-CLOUDY; BILIRUBIN,URINE NEGATIVE (NEGATIVE); COLOR,URINE YELLOW; GLUCOSE, URINE NEGATIVE (NEGATIVE); KETONES,URINE NEGATIVE (NEGATIVE); LEUKOCYTE ESTERASE,URINE NEGATIVE (NEGATIVE); NITRITE,URINE NEGATIVE (NEGATIVE); PROTEIN,URINE 100 mg/dL (NEGATIVE); UROBILINOGEN,URINE NEGATIVE mg/dL (<2.0)
[2019-03-28] MEDS ORDERED: NORMAL SALINE 1000 ML 1,000 ML IV PRN (17:38)
[2019-03-28] MEDS ORDERED: DEXTROSE 40% GEL 15 GM TUBE PO PRN ×2 (17:45)
[2019-03-28] MEDS ORDERED: DOCUSATE SODIUM 100 MG CAPSULE PO PRN (17:45)
[2019-03-28] MEDS ORDERED: TRAMADOL HCL 50 MG TABLET PO PRN (17:45)
[2019-03-28] MEDS ORDERED: MAGNESIUM HYDROXIDE SUSP 30 ML UDCUP PO PRN (17:45)
[2019-03-28] MEDS ORDERED: ONDANSETRON 4 MG TAB.RAPDIS PO PRN (17:45)
[2019-03-28] MEDS ORDERED: GLUCAGON,HUMAN RECOMB 1 MG INJ SUBCUT PRN (17:45)
[2019-03-28] MEDS ORDERED: DEXTROSE 50%-WATER 25 GM/50 ML DISP.SYRIN IV PRN ×2 (17:45)
[2019-03-28] MEDS ORDERED: ACETAMINOPHEN 325 MG TABLET PO PRN (17:45)
--- NOTE | 2019-03-28 19:55 | RADIOLOGY REPORT (SQ) ---
EXAM DESCRIPTION: CAROTID DOPPLER COMPLETED DATE/TIME: 03/28/2019 7:32 pm REASON FOR STUDY: CVA COMPARISON: 10/09/2016 TECHNIQUE: Grayscale ultrasound, Doppler velocity and spectra, and color Doppler images acquired of the extra-cranial carotid and vertebral arteries. Images stored on PACS. LIMITATIONS: None. FINDINGS: RIGHT CAROTID CCA Velocities: Within normal limits. ICA Velocities Peak systolic 56 cm/s. End diastolic 16 cm/s. Proximal ICA/CCA peak systolic ratio 0.8. Spectra normal. Mild plaque. LEFT CAROTID CCA Velocities: Within normal limits. ICA Velocities Peak systolic 55 cm/s. End diastolic 21cm/s. Proximal ICA/CCA peak systolic ratio 0.8. Spectra normal. Mild plaque. VERTEBRAL ARTERIES: Antegrade flow. Normal waveforms. SUBCLAVIAN ARTERIES: No finding. OTHER: No other significant finding. IMPRESSION: NO HEMODYNAMICALLY SIGNIFICANT STENOSIS. COMMENT: Quality ID #[id number]: Velocity criteria are extrapolated from the diameter data as defined by t he Society of Radiologists in Ultrasound Consensus Conference. Radiology 2003: 229; 340-346. TECHNICAL DOCUMENTATION: JOB ID: [id number]-72 2010 [employer]- All Rights Reserved Reading location - IP/workstation name: [email or web address]
--- NOTE | 2019-03-28 20:37 | PDOC H&P ---
History of Present Illness Admission Date/PCP: 03/28/19 16:53 IMANI SANTORO MD Patient complains of: Slurred speech History of Present Illness: VISH NUÑEZ is a 68 year old male with a past medical history significant for CVA with residual right-sided weakness, atrial fibrillation (chronically anticoagulated on Eliquis), hypertension, and insulin-dependent diabetes mellitus who presented to the emergency department today with a complaint of 24 hours of slurred speech and increased right sided weakness. Evaluation in the emergency department was essentially unremarkable with acceptable vital signs, normal CBC, unremarkable chemistry, negative urinalysis, benign chest x-ray, head CT that was negative for acute findings, and EKG demonstrating atrial fibrillation. He was referred to the hospitalist service for admission and management of TIA/CVA. Past Medical History Cardiac Medical History: Reports: Atrial Fibrillation, Myocardial Infarction, Hyperlipidema, Hypertension Denies: Congestive Heart Failure Pulmonary Medical History: Reports: Pneumonia Denies: Asthma, Chronic Obstructive Pulmonary Disease (COPD), Respiratory Failure, Sleep Apnea, Tuberculosis EENT Medical History: Reports: None Neurological Medical History: Reports: Ischemic CVA Denies: Seizures Endocrine Medical History: Reports: Diabetes Mellitus Type 2 Denies: Hyperthyroidism, Hypothyroidism Renal/ Medical History: Denies: Chronic Kidney Disease GI Medical History: Reports: None Musculoskeltal Medical History: Reports: Arthritis Psychiatric Medical History: Denies: Dementia Hematology: Denies: Anemia, Sickle Cell Disease Past Surgical History Past Surgical History: Reports: Orthopedic Surgery - L knee replaced, R rotar cuff repair, Tonsillectomy Social History Information Source: Patient Lives with: Spouse/Significant other Smoking Status: Former Smoker Frequency of Alcohol Use: None Hx Recreational Drug Use: No Hx Prescription Drug Abuse: No - Advance Directive Resuscitation Status: Do Not Resuscitate Surrogate healthcare decision maker:: Patient's Family History Family History: Reviewed & Not Pertinent Parental Family History Reviewed: Yes Children Family History Reviewed: Yes Sibling(s) Family History Reviewed.: Yes Medication/Allergy Home Medications: Apixaban [Eliquis 5 mg Tablet] 5 mg PO BID 03/28/19 Atorvastatin Calcium [Lipitor 40 mg Tablet] 40 mg PO QHS 03/28/19 Benazepril HCl [Lotensin 20 mg Tablet] 20 mg PO DAILY 03/28/19 Digoxin [Lanoxin 0.25 mg Tablet] 0.25 mg PO DAILY 03/28/19 Exenatide Microspheres [Bydureon Pen] 2 mg SQ [place]OR[place]@1000 03/28/19 Ezetimibe [Zetia 10 mg Tablet] 10 mg PO DAILY 03/28/19 Gabapentin [Neurontin 300 mg Capsule] 300 mg PO QHS 03/28/19 Glimepiride [Amaryl 4 mg Tablet] 4 mg PO BID 03/28/19 Insulin Glargine,Hum.rec.anlog [[place] Solostar] 80 unit SQ Q12 03/28/19 Levothyroxine Sodium [Synthroid] 200 mcg PO Q6AM 03/28/19 Metoprolol Tartrate [Lopressor 25 mg Tablet] 25 mg PO Q12 03/28/19 Sertraline HCl [Zoloft] 25 mg PO DAILY 03/28/19 Tramadol HCl [Ultram 50 mg Tablet] 50 mg PO Q6HP PRN 03/28/19 Allergies/Adverse Reactions: shrimp Allergy (Verified 03/28/19 12:08) Generalized rash Review of Systems Constitutional: ABSENT: chills, fever(s), headache(s), weight gain, weight loss Eyes: ABSENT: visual disturbances Ears: ABSENT: hearing changes Cardiovascular: ABSENT: chest pain, dyspnea on exertion, edema, orthropnea, palpitations Respiratory: ABSENT: cough, hemoptysis Gastrointestinal: ABSENT: abdominal pain, constipation, diarrhea, hematemesis, hematochezia, nausea, vomiting Genitourinary: ABSENT: dysuria, hematuria Musculoskeletal: ABSENT: joint swelling Integumentary: ABSENT: rash, wounds Neurological: PRESENT: abnormal speech, focal weakness. ABSENT: abnormal gait, confusion, dizziness, syncope Psychiatric: ABSENT: anxiety, depression, homidical ideation, suicidal ideation Endocrine: ABSENT: cold intolerance, heat intolerance, polydipsia, polyuria Hematologic/Lymphatic: ABSENT: easy bleeding, easy bruising Physical Exam Vital Signs: Temp Pulse Resp BP Pulse Ox 97.8 F 53 L 16 131/83 H 95 03/28/19 19:17 03/28/19 19:17 03/28/19 19:17 03/28/19 19:17 03/28/19 19:17 Intake & Output 03/27/19 03/28/19 03/29/19 06:59 06:59 06:59 Intake Total 1000 Balance 1000 Weight 101.5 kg General appearance: PRESENT: no acute distress, cooperative, well-developed, well-nourished - Overweight Head exam: PRESENT: atraumatic, normocephalic Eye exam: PRESENT: conjunctiva pink, EOMI, PERRLA. ABSENT: scleral icterus Ear exam: PRESENT: normal external ear exam Mouth exam: PRESENT: moist, tongue midline Neck exam: ABSENT: carotid bruit, JVD, lymphadenopathy, thyromegaly Respiratory exam: PRESENT: clear to auscultation josi, symmetrical, unlabored. ABSENT: rales, rhonchi, wheezes Cardiovascular exam: PRESENT: irregular rhythm, +S1, +S2. ABSENT: diastolic murmur, rubs, systolic murmur Pulses: PRESENT: normal dorsalis pedis pul Vascular exam: PRESENT: normal capillary refill GI/Abdominal exam: PRESENT: normal bowel sounds, soft. ABSENT: distended, guarding, mass, organolmegaly, rebound, tenderness Rectal exam: PRESENT: deferred Extremities exam: PRESENT: full ROM. ABSENT: calf tenderness, clubbing, pedal edema Neurological exam: PRESENT: alert, awake, oriented to person, oriented to place, oriented to time, oriented to situation, other - Slurred speech, left facial droop, right plumbing technician 3/5, left plumbing technician 5/5.. ABSENT: motor sensory deficit Psychiatric exam: PRESENT: appropriate affect, normal mood. ABSENT: homicidal ideation, suicidal ideation Skin exam: PRESENT: dry, intact, warm. ABSENT: cyanosis, rash Results Laboratory Results: 03/28/19 12:57 03/28/19 14:02 03/28/19 03/28/19 03/28/19 12:57 12:57 14:02 WBC 9.5 RBC 4.97 Hgb 16.2 Hct 48.2 MCV 97 MCH 32.5 MCHC 33.5 RDW 13.9 Plt Count 255 Seg Neutrophils % 62.7 Sodium Cancelled 137.2 Potassium Cancelled 4.5 Chloride Cancelled 106 Carbon Dioxide Cancelled 24 Anion Gap Cancelled 7 BUN Cancelled 25 H Creatinine Cancelled 1.05 Est GFR ( Amer) Cancelled > 60 Est GFR (Non-Af Amer) Cancelled Glucose Cancelled 160 H Lactic Acid Calcium Cancelled 9.3 Total Bilirubin Cancelled 0.5 AST Cancelled 30 Alkaline Phosphatase Cancelled 48 Total Protein Cancelled 7.0 Albumin Cancelled 3.4 L Urine Color Urine Appearance Urine pH Ur Specific [place] Urine Protein Urine Glucose (UA) Urine Ketones Urine Blood Urine Nitrite Ur Leukocyte Esterase Urine WBC (Auto) Urine RBC (Auto) 03/28/19 03/28/19 14:26 14:33 WBC RBC Hgb Hct MCV MCH MCHC RDW Plt Count Seg Neutrophils % Sodium Potassium Chloride Carbon Dioxide Anion Gap BUN Creatinine Est GFR ( Amer) Est GFR (Non-Af Amer) Glucose Lactic Acid 1.3 Calcium Total Bilirubin AST Alkaline Phosphatase Total Protein Albumin Urine Color YELLOW Urine Appearance SLIGHTLY-CLOUDY Urine pH 5.0 Ur Specific [place] 1.020 Urine Protein 100 H Urine Glucose (UA) NEGATIVE Urine Ketones NEGATIVE Urine Blood SMALL H Urine Nitrite NEGATIVE Ur Leukocyte Esterase NEGATIVE Urine WBC (Auto) 2 Urine RBC (Auto) 1 03/28/19 03/28/19 03/28/19 12:57 12:57 14:02 Creatine Kinase Cancelled 108 CK-MB (CK-2) Cancelled Troponin I Cancelled 03/28/19 14:02 Creatine Kinase CK-MB (CK-2) 1.56 Troponin I < 0.012 Impressions: Chest X-Ray 03/28/19 12:44 IMPRESSION: Minimal linear atelectasis in the left base. No other significant findings. Head CT 03/28/19 12:44 IMPRESSION: MILD CHRONIC CHANGES OF ATROPHY AND MICROVASCULAR ISCHEMIA. NO ACUTE PROCESS. EVIDENCE OF ACUTE STROKE: NO. Carotid Doppler Study 03/28/19 17:40 IMPRESSION: NO HEMODYNAMICALLY SIGNIFICANT STENOSIS. Assessment and Plan - Diagnosis (1) Acute CVA (cerebrovascular accident) Is this a current diagnosis for this admission?: Yes Plan: CTA of the head was negative for acute CVA. Carotid Doppler is negative for hemodynamically significant stenosis. We will obtain head MRI. The patient is chronically anticoagulated on Eliquis for his atrial fibrillation. We will assess A1c, lipid panel and TSH with a.m. lab work. We will obtain PT/OT/ST consultations. Continue daily aspirin and statin therapy. Will allow for permissive hypertension, although blood pressures have been acceptable. Tight glycemic control. Discharge planning is consulted. (2) Diabetes Qualifiers: Diabetes mellitus type: type 2 Diabetes mellitus terminologist insulin use: with long-term use Diabetes mellitus complication status: with unspecified complications Is this a current diagnosis for this admission?: Yes Plan: Currently n.p.o. secondary to failed swallow screen. We will obtain Accu-Cheks before meals and at bedtime with sliding scale insulin. We will hold long-acting insulin while in n.p.o. status. Hypoglycemia protocol in place. (3) Hyperlipidemia Qualifiers: Hyperlipidemia type: unspecified Qualified Code(s): E78.5 - Hyperlipidemia, unspecified Is this a current diagnosis for this admission?: Yes Plan: We will check lipid panel with a.m. lab work. Atorvastatin 80 mg nightly. (4) Hypertension Qualifiers: Hypertension type: essential hypertension Qualified Code(s): I10 - Essential (primary) hypertension Is this a current diagnosis for this admission?: Yes Plan: Blood pressures have been acceptable; 148/95 this evening. We will allow for permissive hypertension. Continue digoxin and metoprolol for A. fib rate control. (5) Atrial fibrillation Qualifiers: Atrial fibrillation type: persistent Qualified Code(s): I48.1 - Persistent atrial fibrillation Is this a current diagnosis for this admission?: Yes Plan: Continue digoxin and metoprolol for A. fib rate control. Continue home dose Eliquis. - Time Time Spent with patient: 35 or more minutes Medications reviewed and adjusted accordingly: Yes Anticipated discharge: Home with Homehealth Within: within 48 hours - Inpatient Certification Based on my medical assessment, after consideration of the patient's comorbidities, presenting symptoms, or acuity I expect that the services needed warrant INPATIENT care.: Yes I certify that my determination is in accordance with my understanding of Medicare's requirements for reasonable and necessary INPATIENT services [42 CFR 412.3e].: Yes Medical Necessity: Significant Comorbidiites Make Outpatient Treatment Too Risky, Need For Continuous Telemetry Monitoring, Risk of Diagnosis Which Will Require Inpatient Eval/Care/Monitoring
[2019-03-28] MEDS ORDERED: GABAPENTIN 300 MG CAPSULE PO SCH (22:00)
[2019-03-28] MEDS ORDERED: ATORVASTATIN CALCIUM 80 MG TABLET PO SCH (22:00)
[2019-03-28] MEDS ORDERED: (PENDING PHARMACY ID) (Insulin Glargine,Hum.Rec.Anlog [Toujeo Solostar] 40 UNIT) SQ SCH (22:00)
[2019-03-28] MEDS: METOPROLOL TARTRATE 25 MG TABLET PO SCH (22:00)
[2019-03-28] MEDS: HEPARIN SOD (PORCINE) 5,000 UNIT/ML 1 ML VIAL SUBCUT SCH (22:12)
[2019-03-28] MEDS: INSULIN GLARGINE,HUM.REC.ANLOG 1,000 UNIT/10 ML VIAL SUBCUT SCH (22:13)
[2019-03-28] MEDS: INSULIN LISPRO 100 UNIT/ML 3 ML VIAL SUBCUT SCH (22:13)
[2019-03-28] MEDS: DEXTROSE 5%-1/2 NORMAL SALINE 1,000 ML IV PRN (22:49)
[2019-03-29] MEDS: HEPARIN SOD (PORCINE) 5,000 UNIT/ML 1 ML VIAL SUBCUT SCH (05:10)
[2019-03-29] MEDS ORDERED: LEVOTHYROXINE SODIUM 0.1 MG TABLET PO SCH (06:00)
[2019-03-29 06:36] LABS: HEMATOCRIT 46.6 % (37.9-51.0); HEMOGLOBIN 15.6 g/dL (13.5-17.0); MEAN CORPUSCULAR HEMOGLOBIN 32.4 pg (27.0-33.4); MEAN CORPUSCULAR HGB CONC 33.6 g/dL (32.0-36.0); MEAN CORPUSCULAR VOLUME 97 fl (80-97); PLATELET COUNT 203 10^3/uL (150-450); RED BLOOD COUNT 4.82 10^6/uL (4.35-5.55); RED CELL DISTRIBUTION WIDTH 13.3 % (11.5-14.0); WHITE BLOOD COUNT 8.9 10^3/uL (4.0-10.5)
[2019-03-29 06:58] LABS: ANION GAP 9 (5-19); BLOOD UREA NITROGEN 18 mg/dL (7-20); CALCIUM 9.2 mg/dL (8.4-10.2); CARBON DIOXIDE 24 mmol/L (22-30); CHLORIDE 108 mmol/L (98-107); CHOLESTEROL 161.83 mg/dL (0-200); GLUCOSE 73 mg/dL (75-110); POTASSIUM 3.8 mmol/L (3.6-5.0); TRIGLYCERIDES 108 mg/dL (<150)
[2019-03-29 07:08] LABS: DIRECT LDL 108 mg/dL (<100)
[2019-03-29] MEDS: INSULIN LISPRO 100 UNIT/ML 3 ML VIAL SUBCUT SCH ×2 (09:31→11:07)
[2019-03-29] MEDS: INSULIN GLARGINE,HUM.REC.ANLOG 1,000 UNIT/10 ML VIAL SUBCUT SCH (09:32)
[2019-03-29] MEDS: METOPROLOL TARTRATE 25 MG TABLET PO SCH (09:40)
[2019-03-29] MEDS ORDERED: DIGOXIN 0.25 MG TABLET PO SCH (10:00)
[2019-03-29] MEDS ORDERED: BENAZEPRIL HCL 20 MG TABLET PO SCH (10:00)
[2019-03-29] MEDS ORDERED: APIXABAN 5 MG TABLET PO SCH (10:00)
[2019-03-29] MEDS ORDERED: EZETIMIBE 10 MG TABLET PO SCH (10:00)
[2019-03-29] MEDS ORDERED: ASPIRIN 81 MG TABLET, ENT COATED PO SCH (10:00)
[2019-03-29] MEDS ORDERED: (PENDING PHARMACY ID) (Sertraline Hcl [Zoloft] 25 MG) PO SCH (10:00)
[2019-03-29] MEDS ORDERED: SERTRALINE HCL 50 MG TABLET PO SCH (10:00)
[2019-03-29] MEDS ORDERED: CLOPIDOGREL BISULFATE 75 MG TABLET PO SCH (10:00)
[2019-03-29] MEDS: DEXTROSE 5%-1/2 NORMAL SALINE 1,000 ML IV PRN (12:26)
--- NOTE | 2019-03-29 16:07 | RADIOLOGY REPORT (SQ) ---
EXAM DESCRIPTION: MRI HEAD WITHOUT COMPLETED DATE/TIME: 03/29/2019 2:58 pm REASON FOR STUDY: Acute CVA COMPARISON: CT brain 03/28/2019, 10/09/2016, 10/10/2016 CT angio neck 10/10/2016 MRI brain 10/09/2016 TECHNIQUE: Multiplanar imaging includes non-contrasted T1, T2, FLAIR, and diffusion with ADC map seq uences. Images stored on PACS. LIMITATIONS: None. FINDINGS: ANATOMY: No developmental anomalies. Normal vascular flow voids. Pituitary fossa normal. CSF SPACES: Normal in size and contour. No hemorrhage. CEREBRUM: Diffusion-weighted images are positive for a small nonhemorrhagic right posterior frontal d eep periventricular white matter infarct best shown on diffusion image 19/56. FLAIR and T2 weighed weighted images demonstrate spotty mild small vessel ischemic change in the rodo spheric white matter, and an old infarct in the left insular cortex and left occipital cortex and sub cortical white matter. POSTERIOR FOSSA: Old infarct left bea, extensive old infarcts in the cerebellar hemispheres right gr eater than left. Diffusion-weighted images are negative for acute ischemic change in the posterior f supriya. DIFFUSION IMAGING: Positive for acute ischemic change in the right posterior frontal deep periventric ular white matter. ORBITS: No masses. Globes normal. PARANASAL SINUSES: No fluid levels. Mucosa normal. OTHER: Report called to CANDI Early IMPRESSION: Acute nonhemorrhagic right posterior frontal deep periventricular white matter infarct Minimal hemispheric small vessel ischemic change Old infarcts in the left bea and bilateral cerebellar hemispheres EVIDENCE OF ACUTE STROKE: YES. TECHNICAL DOCUMENTATION: JOB ID: [id number] [employer]- All Rights Reserved Reading location - IP/workstation name: [facility]
[2019-03-29 17:46] VITALS: BP 131/83
--- NOTE | 2019-03-31 18:50 | PDOC DISCHARGE SUMMARY ---
General - Admit/Disc Date/PCP Admission Date/Primary Care Provider: 03/28/19 16:53 IMANI SANTORO MD Discharge Date: 03/29/19 - Discharge Diagnosis (1) Acute CVA (cerebrovascular accident) Is this a current diagnosis for this admission?: Yes Summary: MRI demonstrates acute nonhemorrhagic right posterior frontal deep periventricular white matter infarct. Head CT was negative; MRI as above. Carotid Doppler was negative for hemodynamically significant stenosis. Echocardiogram not obtained inpatient; patient is discharged on his Eliquis. May consider outpatient echocardiogram at follow-up appointment with deputy [employer] states marshal. Patient was evaluated by physical therapy/Occupational Therapy/speech therapy services; will continue rehab services through home health. Patient is encouraged to continue managing diabetes. He is instructed to continue his statin therapy. Continue Eliquis. He is advised to follow-up with his primary care provider within 1 week. He is instructed to contact his established deputy united states marshal, Dr. Puga, and follow-up at earliest available appointment. Return to the emergency department as needed for concerning symptoms. (2) Diabetes Is this a current diagnosis for this admission?: Yes Summary: A1c 8.2%. Patient and report that this is improved from his last check. He is encouraged to continue dietary compliance and medication compliance. Resume outpatient medication regiment. (3) Hyperlipidemia Is this a current diagnosis for this admission?: Yes Summary: Lipid panel is acceptable with HDL 33, LDL 108, triglycerides 108, total cholesterol 161. Continue consistent carb/cardiac diet. Continue home dose statin therapy. (4) Hypertension Is this a current diagnosis for this admission?: Yes Summary: Patient has acceptable blood pressures on his home medication regiment of digoxin, metoprolol, benazepril. Continue dietary and lifestyle modifications are encouraged. (5) Atrial fibrillation Is this a current diagnosis for this admission?: Yes Summary: Rate controlled on his home medication regiment; Digoxin, metoprolol. Continue Eliquis for chronic anticoagulation. - Additional Information Resuscitation Status: Do Not Resuscitate Discharge Diet: Cardiac, Diabetic Discharge Activity: Activity As Tolerated, Balance Activity w/Rest Home Medications: Apixaban [Eliquis 5 mg Tablet] 5 mg PO BID 03/28/19 Atorvastatin Calcium [Lipitor 40 mg Tablet] 40 mg PO QHS 03/28/19 Benazepril HCl [Lotensin 20 mg Tablet] 20 mg PO DAILY 03/28/19 Digoxin [Lanoxin 0.25 mg Tablet] 0.25 mg PO DAILY 03/28/19 Exenatide Microspheres [Bydureon Pen] 2 mg SQ FLORENCE@1000 03/28/19 Ezetimibe [Zetia 10 mg Tablet] 10 mg PO DAILY 03/28/19 Gabapentin [Neurontin 300 mg Capsule] 300 mg PO QHS 03/28/19 Glimepiride [Amaryl 4 mg Tablet] 4 mg PO BID 03/28/19 Insulin Glargine,Hum.rec.anlog [[place]ouje[place] Solostar] 80 unit SQ Q12 03/28/19 Levothyroxine Sodium [Synthroid] 200 mcg PO Q6AM 03/28/19 Metoprolol Tartrate [Lopressor 25 mg Tablet] 25 mg PO Q12 03/28/19 Sertraline HCl [Zoloft] 25 mg PO DAILY 03/28/19 Tramadol HCl [Ultram 50 mg Tablet] 50 mg PO Q6HP PRN 03/28/19 Acetaminophen [Tylenol 325 mg Tablet] 650 mg PO Q4HP PRN tablet 03/29/19 Aspirin [Ecotrin 81 mg EC Tablet] 81 mg PO DAILY tabec 03/29/19 History of Present Illness History of Present Illness: VISH NUÑEZ is a 68 year old male with a past medical history significant for CVA with residual right-sided weakness, atrial fibrillation (chronically anticoa gulated on Eliquis), hypertension, and insulin-dependent diabetes mellitus who presented to the emergency department today with a complaint of 24 hours of slurred speech and increased right sided weakness. Evaluation in the emergency department was essentially unremarkable with acceptable vital signs, normal CBC, unremarkable chemistry, negative urinalysis, benign chest x-ray, head CT that was negative for acute findings, and EKG demonstrating atrial fibrillation. He was referred to the hospitalist service for admission and management of TIA/CVA. Physical Exam Vital Signs: Temp Pulse Resp BP Pulse Ox 97.6 F 67 16 131/83 H 96 03/29/19 17:45 03/29/19 17:45 03/29/19 17:45 03/29/19 17:45 03/29/19 17:45 Intake & Output 03/30/19 03/31/19 04/01/19 06:59 06:59 06:59 Intake Total 1000 Balance 1000 General appearance: PRESENT: no acute distress, well-developed, well-nourished Head exam: PRESENT: atraumatic, normocephalic Eye exam: PRESENT: conjunctiva pink, EOMI, PERRLA. ABSENT: scleral icterus Ear exam: PRESENT: normal external ear exam Mouth exam: PRESENT: moist, tongue midline Neck exam: ABSENT: carotid bruit, JVD, lymphadenopathy, thyromegaly Respiratory exam: PRESENT: clear to auscultation josi. ABSENT: rales, rhonchi, wheezes Cardiovascular exam: PRESENT: RRR. ABSENT: diastolic murmur, rubs, systolic murmur Pulses: PRESENT: normal dorsalis pedis pul Vascular exam: PRESENT: normal capillary refill GI/Abdominal exam: PRESENT: normal bowel sounds, soft. ABSENT: distended, guarding, mass, organolmegaly, rebound, tenderness Rectal exam: PRESENT: deferred Extremities exam: PRESENT: full ROM. ABSENT: calf tenderness, clubbing, pedal edema Musculoskeletal exam: PRESENT: ambulatory Neurological exam: PRESENT: alert, awake, oriented to person, oriented to place, oriented to time, oriented to situation, CN II-XII grossly intact, other - Continued slurred speech and left facial droop. Per , waxing and waning today. Right sampling theory teacher strength is returned to baseline per patient.. ABSENT: motor sensory deficit Psychiatric exam: PRESENT: appropriate affect, normal mood. ABSENT: homicidal ideation, suicidal ideation Skin exam: PRESENT: dry, intact, warm. ABSENT: cyanosis, rash Results Laboratory Results: 03/29/19 05:47 03/29/19 05:47 03/28/19 03/28/19 03/28/19 12:57 12:57 14:02 Creatine Kinase Cancelled 108 CK-MB (CK-2) Cancelled Troponin I Cancelled 03/28/19 14:02 Creatine Kinase CK-MB (CK-2) 1.56 Troponin I < 0.012 Impressions: Chest X-Ray 03/28/19 12:44 IMPRESSION: Minimal linear atelectasis in the left base. No other significant findings. Head CT 03/28/19 12:44 IMPRESSION: MILD CHRONIC CHANGES OF ATROPHY AND MICROVASCULAR ISCHEMIA. NO ACUTE PROCESS. EVIDENCE OF ACUTE STROKE: NO. Carotid Doppler Study 03/28/19 17:40 IMPRESSION: NO HEMODYNAMICALLY SIGNIFICANT STENOSIS. Head MRI 03/29/19 00:00 IMPRESSION: Acute nonhemorrhagic right posterior frontal deep periventricular white matter infarct Minimal hemispheric small vessel ischemic change Old infarcts in the left bea and bilateral cerebellar hemispheres EVIDENCE OF ACUTE STROKE: YES. Qualifiers - * PATIENT BEING DISCHARGED WITH ANY OF THE FOLLOWING DIAGNOSIS: Stroke Stroke Pt being discharged on Anti-thrombolytic therapy?: Yes Stroke Pt being discharged on Anti-coagulation therapy?: Yes Stroke Pt being discharged on Statins?: Yes Acute Heart Failure - Is this a Heart Failure Patient?: No Plan Discharge Plan: Follow up with primary care provider as scheduled next week. Follow up with Dr. Puga next week. Continue to work on maintaining good blood sugars. Eat a consistent carb, cardiac diet. Take medications as prescribed. Return to the emergency department as needed for concerning symptoms. Time Spent: Greater than 30 Minutes
== END 2019-03-29 18:35 | disposition home or self-care (01) | DRG 69 ==
LOC: ER 12:08 → EH 16:53 → 3S 19:08
PROVIDERS: ADMIT Internal Medicine; ATTEND Internal Medicine
DX: G45.9 Transient cerebral ischemic attack, unspecified (principal); I48.1 Persistent atrial fibrillation; R53.1 Weakness; I10 Essential (primary) hypertension; E78.5 Hyperlipidemia, unspecified; E11.8 Type 2 diabetes mellitus with unspecified complications; I25.2 Old myocardial infarction; Z79.01 Long term (current) use of anticoagulants; Z79.84 Long term (current) use of oral hypoglycemic drugs; Z79.891 Long term (current) use of opiate analgesic; Z79.899 Other long term (current) drug therapy; Z86.73 Personal history of transient ischemic attack (TIA), and cerebral infarction without residual deficits
CPT/HCPCS: 36415; 70450; 70551; 71045; 80048; 80053; 80061; 81001; 82550; 82553; 82962; 83036; 83605; 84484; 85025; 85027; 85610; 85730; 93005; 93010; 93880; 96360; 99285; J1644; J1815; J3490; J7030

== ENCOUNTER → 2019-04-10 | Outpatient (CLI) | payer MEDICARE | LOC: OD 08:33 | PROVIDERS: ATTEND Family Medicine Geriatric Medicine | DX: E03.9 Hypothyroidism, unspecified (principal); Z79.899 Other long term (current) drug therapy | CPT/HCPCS: 36415; 84443 ==

== ENCOUNTER → 2019-07-31 | Outpatient (CLI) | payer MEDICARE ==
[2019-07-31 09:38] LABS: ANION GAP 11 (5-19); BLOOD UREA NITROGEN 17 mg/dL (7-20); CALCIUM 9.5 mg/dL (8.4-10.2); CARBON DIOXIDE 30 mmol/L (22-30); CHLORIDE 103 mmol/L (98-107); CHOLESTEROL 193.91 mg/dL (0-200); GLUCOSE 132 mg/dL (75-110); POTASSIUM 4.2 mmol/L (3.6-5.0); TRIGLYCERIDES 189 mg/dL (<150)
[2019-07-31 09:49] LABS: DIRECT LDL 124 mg/dL (<100)
[2019-07-31 09:52] LABS: VLDL CHOLESTEROL 37.8 mg/dL (10-31)
[2019-08-01 11:37] LABS: CREATININE URINE 126.5 mg/dL (Not Estab.)
== END ==
LOC: OD 07:57
PROVIDERS: ATTEND Family Medicine Geriatric Medicine
DX: E11.49 Type 2 diabetes mellitus with other diabetic neurological complication (principal); E03.9 Hypothyroidism, unspecified; I48.0 Paroxysmal atrial fibrillation; Z79.899 Other long term (current) drug therapy
CPT/HCPCS: 36415; 80048; 80061; 82043; 82570; 83036; 84443; 84460

== ENCOUNTER → 2020-06-11 | Outpatient (CLI) | payer MEDICARE ==
[2020-06-11 10:21] LABS: CHOLESTEROL 178.12 mg/dL (0-200); DIRECT LDL 112 mg/dL (<100); TRIGLYCERIDES 156 mg/dL (<150)
[2020-06-11 10:22] LABS: VLDL CHOLESTEROL 31.2 mg/dL (10-31)
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
== END ==
LOC: OD 08:33
PROVIDERS: ATTEND Family Medicine Geriatric Medicine
DX: E03.9 Hypothyroidism, unspecified (principal); Z79.899 Other long term (current) drug therapy
CPT/HCPCS: 36415; 80061; 84443; 84460